=== PATIENT | male | born 1950 | race Caucasian/White ===

== ENCOUNTER 2020-05-17 14:05 | Inpatient (IN) | payer OTHER ==
--- NOTE | 2020-05-18 17:19 | R.PREADM ---
PRE-ADMISSION SCREENING FORM SCREENING DATE AND TIME 05/17/2020 14:17 (CDT) ANTICIPATED REHAB ADMISSION DATE 05/19/2020 REFERRING FACILITY [facility] REFERRAL DATE AND TIME 05/17/2020 14:17 (CDT) ACUTE ADMIT DATE 05/08/2020 Previous Rehabilitation(s): No. REFERRING PHYSICIAN Dr Prudence Almonte REHAB FACILITY [facility] CLINICAL LIAISON Jacquelyn Vazquez PHYSICIAN REVIEWER Dr. Alexi Loza M.D. MR# [id number] NAME Mason Pride ADDRESS [address] [facility] PHONE ( [place]IP [address] DATE OF 1950 AGE 70 SSN# [id number] GENDER male MARITAL STATUS RACE white PREF. LANGUAGE (IF NON-VIETNAMESE) Turkmen ADMIT FROM 02 - [facility] PRE-HOSPITAL LIVING SETTING 01 - Home (private home/apt. board/care, assisted living, usp, transitional living) HOME TYPE AND DETAILS Type of home: single family house # of levels in the residence: 1 # of steps to enter the residence: no steps but 2 rails to enter residence # of steps within the residence: 0 PRE-HOSPITAL LIVING WITH Alone FAMILY SUPPORT Yes PRIMARY FAMILY CONTACT NAME Dulce Maria Pride PRIMARY FAMILY CONTACT PHONE PRIMARY FAMILY CONTACT RELATIONSHIP daughter IS PRIMARY FAMILY CONTACT AUTH. REP.? no 1ST EMERGENCY CONTACT Dulce Maria Pride 1ST CONTACT PHONE 1ST CONTACT RELATIONSHIP daughter IS 1ST CONTACT AUTH. REP.? no PHONE 2ND CONTACT ON ADM.? no PATIENT EMPLOYMENT STATUS Retired (for age) PATIENT EMPLOYER No Employer PAYOR INFORMATION: 1ST PAYOR NAME MEDICARE 1ST PAYOR PHONE 1ST PAYOR INJURY/ILLNESS DUE TO ACCIDENT? No ANOTHER REPUBLICAN RESPONSIBLE? Unknown PRIMARY REHAB/ACUTE DIAGNOSIS: NSTEMI ONSET DATE 05/08/2020 REHAB IMPAIRMENT CATEGORY (LENY): 14 Cardiac does NOT meet 60% rule PRIMARY DIAGNOSIS-RELATED SURGERIES: L Catheter and PCI Pump INTERVENTIONS: - Atrial Fibrillation Anticoagulation VS Medications - Nicotine Nicotine Dependancy - Hypertension VS Medications Fluid management SUMMARY OF ACUTE HOSPITALIZATION: Pt. is a 70 yo Right-handed white male. He has past medical history significant for . On 05/08/2020 he was admitted to [facility] with diagnosis NSTEMI. His impairment category is Cardiac 09 - Cardiac Disorders (09). Pre-morbidly, Pt. was independent/mod-I in Communication and Self-Care; and he had good Transfers Con trol, Social Cognition, and Balance. Currently, he has deficits of Balance, Transfers Control, Endurance, and Sphincter Control. Pt. is now referred to [facility] for acute in-patient rehabilitation in order to maximize patient's functional independence in activities of daily living, strength, ROM, and mobi lity. Patient has realistic goal of being discharged at assistance level 7-[facility] to reside at Home with Pt s elf. PAST MEDICAL HISTORY Necrotizing fasciitis Pain Acute kidney failure AFIB Angina Nicotine dependence, unspecified, with other nicotine-induced disorders (F17.208) SOB HTN HLD MEDICATION ALLERGIES: No Known Drug Allergies (NKDA) ENVIRONMENTAL ALLERGIES: None Known - Substance Allergies None Known - Other Allergies None Known CODE STATUS: Full code WEIGHT/HEIGHT/BMI: WEIGHT 250 lbs HEIGHT 6' 2 BMI 32.1 DIET: - Diet Type Regular - Diet - Solid Texture Regular - Diet - Liquid Texture Regular - Tube Feed N/A SKIN DIAGRAM: Incision on Chest; extent - ; stage - . Treatment - Per Physician's Orders. REVIEW OF SYSTEMS: - Gen Alert and awake Lying in bed No apparent distress Oriented to: person, time, and place - Vital Signs Vital signs stable, afebrile - CVS RRR VITAL SIGNS Temperature: 96.1 F SBP/DBP: 118/67 Pulse: 68 Resp: 18 Vital signs stable, afebrile MEDICATIONS/TREATMENT: - see attached. CURRENT SPHINCTER CONTROL: Pre-hospital bladder status: continent Pre-hospital bowel status: continent Last Bowel Movement Date: CURRENT LOCOMOTION STATUS: distance walked 125 feet contact guard DETAILED CURRENT FUNCTIONAL STATUS: - Bladder accident frequency: UNK - No information - Bowel accident frequency: UNK - No information - Walking score based on distance walked: 0(N/A) - Wheelchair score based on distance traveled: 0(N/A) QI SCORES: - Self-Care A. Eating 04-Supervision or touching assistance B. Oral hygiene 04-Supervision or touching assistance C. Toileting hygiene 04-Supervision or touching assistance E. Shower/bathe self 04-Supervision or touching assistance F. Upper body dressing 04-Supervision or touching assistance G. Lower body dressing 04-Supervision or touching assistance H. Putting on/taking off footwear 88-Not attempted due to medical condition or safety concerns - Mobility A. Roll left and right 05-Setup or clean-up assistance B. Sit to lying 04-Supervision or touching assistance C. Lying to sitting on side of bed 04-Supervision or touching assistance D. Sit to stand 04-Supervision or touching assistance E. Chair/npy-js-pbfik transfer 03-Partial/moderate assistance F. Toilet transfer 03-Partial/moderate assistance G. Car transfer 88-Not attempted due to medical condition or safety concerns I. Walk 10 feet 02-Substantial/maximal assistance J. Walk 50 feet with two turns 88-Not attempted due to medical condition or safety concerns K. Walk 150 feet 88-Not attempted due to medical condition or safety concerns L. Walking 10 feet on uneven surfaces 88-Not attempted due to medical condition or safety concerns M. 1 step (curb) 88-Not attempted due to medical condition or safety concerns N. 4 steps 88-Not attempted due to medical condition or safety concerns O. 12 steps 88-Not attempted due to medical condition or safety concerns P. Picking up object 88-Not attempted due to medical condition or safety concerns R. Wheel 50 feet with two turns 88-Not attempted due to medical condition or safety concerns S. Wheel 150 feet 88-Not attempted due to medical condition or safety concerns - Bladder and Bowel Bladder continence Bowel continence - Endurance Fair - Balance Fair - Safety Awareness Fair CURRENT FUNC. DEFICITS: Self-Care, Mobility, Endurance, Balance, and Safety Awareness CURRENT / PREVIOUS ASSISTIVE DEVICES: Shower Chair THERAPY NOTES FROM ACUTE CARE: Attached. SPECIAL NEEDS: - Safety Concerns Skin breakdown precautions needed due to skin breakdown risk PATIENT NEEDS ACTIVE AND ONGOING THERAPEUTIC INTERVENTION OF MULTIPLE THERAPY DISCIPLINES, INCLUDING: - Dietary and Nutrition Adequate Nutrition. Nutritional Education. Nutritional Supplements. PATIENT NEEDS CLOSE MEDICAL SUPERVISION BY A REHABILITATION PHYSICIAN FOR: Coordination of Treatment Team Wound Care PATIENT REQUIRES 24X7 REHAB NURSING FOR MEDICAL AND FUNCTIONAL MGT. OF THE FOLLOWING DEFICITS: Disease Management Medication Management Patient/Family Education Providing Safe Environment Skin Integrity PATIENT REQUIRES INTENSIVE, COORDINATED INTERDISCIPLINARY APPROACH TO REHAB: Arranging Home Equipment/Services Discharge Planning Family Intervention/Training Supervisor Spinning/Case Management PATIENT REHAB POTENTIAL: Joshua Pride is able and expected to receive 3 hours of individualized therapy daily on at least 5 of e very 7 days Joshua Pride's prognosis for significant practical improvement within a reasonable period of time appea rs Good Expected level of measurable improvement will be of a practical value to Joshua Pride's functional capa city or adaptations to impairments Has a viable Discharge Plan Medically appropriate; condition is sufficiently stable to participate in intensive rehab program DISCHARGE PLAN: - Estimated Length of Stay (days) 10. - Consensus on plan Discharge plan has been discussed with primary caregiver. Patient/Family is in agreement with the yamila n. Primary caregiver is in agreement with the plan. - Patient/Family Goals Return home independently. - Planned Living Setting Upon Discharge Home, to live alone. Transitional Living. Primary caregiver: Pt self. RECOMMENDED CARE LEVEL: IRF RECOMMENDATION DETAILS: Recommended Admission to Comprehensive Rehabilitation Program to Increase Functional Archer SCREENER'S COMPLETENESS CONFIRMATION: - Screening Confirmation The patient data collection on this preadmission screening form is finished PHYSICIANS REVIEW AND ADMISSION DETERMINATION Admit - Based on my review of the Pre-Admission Screening results, in my medical judgment and experie nce, I concur with the findings and recommend admission to [facility], as this patient requires an IRF level of care. SIGNATURE PANEL: Field Health Officer - [electronically] signed by Claudia España on 05/18/2020 at 11:26 (CDT) Field Health Officer - [electronically] signed by Anna Gupta RN on 05/18/2020 at 11:35 (CDT) Physician Reviewer - [electronically] signed by Dr. Alexi Loza M.D. on 05/18/2020 at 17:19 (CDT )
--- OUTSIDE RECORDS SUMMARY | 2020-05-19 18:12 | XMS REPORT | Clinical Summary ---
:1950 Author Organization [facility] Address [address] [place] [address] Care Team Providers Name Role Phone Vu New MD Primary Care Provider Allergies Active Allergy Reactions Severity Noted Date Comments Lisinopril 12/13/2017 Medications Medication Sig Dispensed Refills Start End Date Status Date atorvastatin (LIPITOR) Take 80 mg 0 Active 80 MG tablet by mouth daily. ALPRAZolam (XANAX) 0.5 Take 0.5 mg 0 Active MG tablet by mouth nightly as needed for anxiety. BUPROPION HCL Take 450 mg 0 Acti ve (WELLBUTRIN ORAL) by mouth daily. metoprolol tartrate Take 1 30 tablet Active (LOPRESSOR) 25 mg tablet (25 9 tablet mg total) by mouth 2 (two) times a day. omeprazole (PriLOSEC) Take 40 mg 0 Active 40 MG capsule by mouth daily. sucralfate (CARAFATE) 1 Take 1 g by 0 Active gram tablet mouth 4 (four) times a day. traMADol (ULTRAM) 50 mg Take 50 mg 0 Active tabletIndications: by mouth acute pain every 6 (six) hours as needed for moderate pain .Acute Pain. hydroCHLOROthiazide Take 25 mg 0 Active (HYDRODIURIL) 25 MG by mouth tablet daily. furosemide (LASIX) 40 Take 1 30 tablet 06/26/20 Discontinued mg tablet tablet (40 9 19 (Patient mg total) by Reporte d) mouth daily. potassium chloride Take 1 30 tablet 04/03/20 E xpired (KLOR-CON) 10 MEQ CR tablet (10 9 20 tablet mEq total) by mouth daily. hydrALAZINE Take 1 60 tablet 6 04/03/20 (APRESOLINE) 100 MG tablet (100 9 20 tablet mg total) by mouth 2 (two) times a day. Active Problems Problem Noted Date Localized edema 06/16/2017 Last Assessment & Plan: Will add lasix and potassium and check l abs in one week Preop cardiovascular exam 12/10/2016 Last Assessment & Plan: OK to proceed with surgery at low periop CV risk Shortness of breath 09/11/2016 Last Assessment & Plan: No evidence of ischemia Carotid stenosis, right 05/18/2016 Overview: S/P Right CEA Last Assessment & Plan: s/p right CEA; mild plaquing is noted by Doppler Atherosclerosis of [place] coronary artery without cristina na pectoris 05/18/2016 Overview: S/P PCI Pure hypercholesterolemia 05/18/2016 Last Assessment & Plan: On statin Essential (primary) hypertension 05/18/2016 Last Assessment & Plan: BPs elevated; due to an absence of thera py; he will resume therapy Encounters Date Type Specialty Care Team Description 08/15/2019 Office Visit Cardiology Charlie Vazquez, Essential (primary) hypertension (Primary Dx); Preop cardiovas cular exam; Pure hyperchole sterolemia; Carotid stenosi s, right 08/03/2019 Telephone Cardiology Hollis Reynolds MA Results 06/26/2019 Office Visit Cardiology Charlie Vazquez, Carotid st enosis, right (Primary Dx); Preop cardiovas cular exam; Essential (prim kip) hypertension; Pure hyperchole sterolemia after 05/19/2019 Surgical History Surgery Date Site/Laterality Comments CAROTID ENDARTERECTOMY Right CV PERCUTANEOUS CORONARY INTERVENTION Medical History Medical History Date Comments Hypertension CKD (chronic kidney disease) Hyperlipidemia Depression ED (erectile dysfunction) Skin cancer Osteoarthritis Lupus anticoagulant positive Social History Tobacco Use Types Packs/Day Years Used Date Current Every Day Smoker Smokeless Tobacco: Current User Comments: trying to quit Alcohol Use Drinks/Week oz/Week Comments Yes Socially Sex Assigned at Date Recorded Not on file Last Filed Vital Signs Vital Sign Reading Time Taken Comments Blood Pressure 175/82 08/15/2019 11:40 AM [employer] [employer] Pulse 94 08/15/2019 11:40 AM [employer] Temperature - - Respiratory Rate - - Oxygen Saturation - - Inhaled Oxygen Concentration - - Weight 118 kg (260 lb) 08/15/2019 11:40 AM [employer] Height 188 cm (6' 2") 08/15/2019 11:40 AM [employer] Body Mass Index 33.38 08/15/2019 11:40 AM [employer] Plan of Treatment Health Maintenance Due Date Last Done Comments COLONOSCOPY SCREENING 02/26/2000 SHINGLES VACCINES (#1) 02/26/2000 65+ PNEUMOCOCCAL VACCINE (1 of 1 - PPSV23) 2015 INFLUENZA VACCINE 02/24/2020 Procedures Procedure Name Priority Date/Time Associated Diagnosis Comme nts NM MYOCARDIAL Routine 08/15/2019 11:33 Preop cardiovascular Re sults for this PERFUSION REST AM [employer] exam procedure are in STRESS 1 DAY the results section. CV STRESS TEST Routine 08/15/2019 11:33 Preop cardiovascular NUCLEAR CARDIO AM [employer] exam US CAROTID DUPLEX Routine 08/02/2019 3:25 Carotid stenosis, R esults for this BILATERAL PM [employer] right procedure are i n the results section. TTE COMPLETE, WO Routine 08/02/2019 2:56 Nonrheumatic mitral Results for this CONTRAST, W DOPPLER PM [employer] valve regurgitation p rocedure are in ([id number]) the results section. after 05/19/2019 Results Nm myocardial perfusion (08/15/2019 11:33 AM [employer]POR[employer]) Pathologist Sig nature Target HR 151.00 bpm [facility] Exercise duration (sec) 10 sec [facility] Resting HR 91 BPM [facility] Resting BP 175/84 mmHg [facility] Percent HR 66.89 % [facility] Exercise duration (min) 0 min [facility] Post Peak HR 101 bpm [facility] Post Peak BP 175/84 mmHg [facility] Max Predicted Heart Rate 151 BPM [facility] Specimen Narrative Performed At This result has an attachment that is no t available. [facility] Study Quality: good. There are no perfusion defects. The study is normal. This study result indicates a low risk of cardiac d eath, or nonfatal infarction, over the ensuing year. SPECT images demonstrate a normal perfusion study. Normal left ventricular systolic function. No evidence of ischemia. Normal LV systolic function. Performing Organization Address City/State/ZIP Code Phon e Number [facility] [address] [place] [address] Us carotid duplex (08/02/2019 3:25 PM [employer]POR[employer]) Pathologist Sig nature R ECA Prox 118.00 cm/s [facility] L CCA Prox 13.70 cm/s [facility] L CCA Prox 71.30 cm/s [facility] L ECA Prox 14.80 cm/s [facility] L ECA Prox 78.40 cm/s [facility] R ECA Prox -16.60 cm/s [facility] L ICA Prox 27.90 cm/s [facility] L ICA Prox 85.50 cm/s [facility] R ICA Prox -23.10 cm/s [facility] R ICA Prox -58.90 cm/s [facility] L ICA/CCA Ratio 1.21 [facility] R ICA/CCA Ratio 1.12 [facility] L CCA Max 71.30 cm/s [facility] R CCA Max 90.30 cm/s [facility] L ICA Max 86.10 cm/s [facility] R ICA Max 101.00 cm/s [facility] R CCA Prox 17.80 cm/s [facility] R CCA Prox 90.30 cm/s [facility] R ICA Dist -37.80 cm/s [facility] L ICA Dist -31.50 cm/s [facility] L ICA DIST -86.10 cm/s [facility] R CCA Dist 13.10 cm/s [facility] R CCA Dist 64.10 cm/s [facility] L CCA Dist 16.00 cm/s [facility] L CCA Dist 61.80 cm/s [facility] R ICA Dist -101.00 cm/s [facility] Lt CCA Prox RI 80.79 [facility] Rt ECA Prox PSV -118.00 cm/s [facility] Lt CCA Prox SD 520.44 [facility] Lt ECA Prox RI 81.12 [facility] Lt ECA Prox SD 529.73 [facility] Rt ECA Prox RI 85.93 [facility] Rt ECA Prox SD 710.84 [facility] Lt ICA Prox RI 67.37 cm/s [facility] Lt ICA Prox SD 306.45 [facility] Rt ICA Prox RI 60.78 cm/s [facility] Rt ICA Prox SD 254.98 cm/s [facility] Rt CCA Prox RI 80.29 [facility] Rt CCA Prox SD 507.30 [facility] Lt CCA Dist SD Ratio 386.25 [facility] Lt ICA Dist SD Ratio 273.33 [facility] Rt CCA Dist SD Ratio 489.31 [facility] RT ICA Dist SD Ratio 267.20 cm/s [facility] RT CCA DIST RI 79.56 cm/s [facility] RT CCA PROX SD RATIO 507.30 cm/s [facility] Lt IC/CC 120.76 cm/s [facility] Lt CCA Distal RI 74.11 [facility] Lt ICA Distal RI 63.41 [facility] Rt ICA Distal EDV -37.80 cm/s [facility] Rt ICA Distal RI 62.57 [facility] Specimen Narrative Performed At This result has an attachment that is no t available. Intimal thickening involving both carotid arteries without significant [facility] stenosis. Patency noted at the site of previous right carotid endarterectomy. Mild plaque involving the left carotid bulb without significant stenosis, Bilateral anterograde vertebral flow. Performing Organization Address City/State/ZIP Code Phon e Number [facility] [address] [place] [address] Echocardiogram complete w contrast and 3D if needed (08/02/2019 2:56 PM [employer]) Pathologist Sig nature Velocity Ratio (V1/V2) 0.90 m/s [facility] EF 44.11 % [facility] AoV Mean PG 3.00 mmHg [facility] AV LVOT peak gradient 5.02 mmHg [facility] MV valve area p 1/2 method 2.62 cm2 [facility] E/A ratio 0.90 [facility] E wave decelartion time 289.00 msec [facility] LVOT Diam,S 2.30 cm [facility] LVOT area 4.15 cm2 [facility] LVOT Vmax 1.12 m/s [facility] LVOT VTI 0.24 m [facility] AoV Peak PG 6.25 mmHg [facility] MV Peak E Laurent 0.85 m/s [facility] MV stenosis pressure 1/2 time 83.81 ms [facility] MV Peak A Laurent 0.94 m/s [facility] BSA 2.45 m2 [facility] AoV Area, Vmax 3.72 cm2 [facility] AoV Area, VTI 3.43 cm2 [facility] AoV Vmax 1.25 m/s [facility] BSA King 2.54 m2 [facility] BSA Haycock 2.55 m2 [facility] IVS/LVPW,2D 0.98 [facility] LV,d 5.48 cm [facility] LV,s 4.27 cm [facility] RVSP (TR) 19.92 mmHg [facility] TR Vpeak 1.73 mm/s [facility] BMI 34.15 kg/m2 [facility] MV E A ratio 0.90 [facility] RA pressure 10.00 mmHg [facility] TR pk grad 9.92 mmHg [facility] AoV area i VTI BSA Lyman 1.40 cm2/m2 [facility] MR peak grad 20.98 mmHg [facility] RVSP 19.92 mmHg [facility] Ao Root,d,2D 3.00 cm [facility] LV SYS VOL 81.71 ml [facility] LV DESAI VOL 146.19 ml [facility] LV SI Teich 2D 26.29 ml/m2 [facility] LV SV Teich 2D 64.48 ml [facility] LV Vol s Teich PSAX 81.71 ml [facility] LVOT SI 40.14 ml/m2 [facility] AoV Cusp sep 2.30 [facility] Aortic Root 3.30 cm [facility] AoV Vmn 0.87 [facility] LA Ao Ratio Mmode 1.36 [facility] LV FS Cube 2D 22.08 [facility] LV FS Teich 2D 22.08 [facility] AoV VTI 0.29 m [facility] LV EF,2D 52.69 % [facility] MR Vmax 2.29 m/s [facility] MV AE ratio 1.11 [facility] LVOT Vmn 0.68 [facility] Pt Size 187.96 [facility] Pt Wt 120.66 [facility] Aov area Vmn 3.27 cm2 [facility] LVOT mean grad 2.00 mmHg [facility] Ao d LA s ratio 0.70 [facility] AoV area I VMN bsa 1.33 cm2/m2 [facility] LV press s 161.25 mmHg [facility] LV SI Cube 2D 35.35 ml/m2 [facility] LV SV Cube 2D 86.71 ml [facility] LV vol d cube 2D 164.57 ml [facility] LV vol s cube 2D 77.85 ml [facility] Specimen Narrative Performed At This result has an attachment that is no t available. [facility] Left ventricular systolic function is normal. Left Ventricular ejection fraction is 55 - 60%. There is mild sclerosis of the aortic valve leaflet s. Technically limited study with sub-optimal imaging in the parasternal windows. Apical windows were used primarily for interp retation. Normal left ventricular size with preserved systolic function and no regionality. Age related changes involving the aortic valve without stenosis or insufficiency. Trace mitral and tricuspid regurgitatio n. Normal right sided chambers. Performing Organization Address City/State/ZIP Code Phon e Number [facility] [address] [place] [address] after 05/19/2019 Insurance Payer Benefit Plan / Subscriber ID Effective Phone Address T ype Group Dates MEDICARE MEDICARE PART [id number] 2015-Pre[place], [place] Medicare A AND B nt [employer] OF [employer] OF [id number] 2015-Pre Eddie ROWELL sent [phone] (Work) Advance Directives For more information, please contact: [phone] Type Date Recorded Patient Silviculture Professor Explanati on Advance Directives, Living Will and Medical Power of Cellar Packer
--- OUTSIDE RECORDS SUMMARY | 2020-05-19 18:14 | XMS REPORT | Clinical Summary ---
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 05/08/2020 4:27 PM CDT Resu lts for this procedure are i n the results section . HEMOGLOBIN A1C Routine 05/08/2020 4:19 PM CDT Re sults for this procedure are i n the results section . LIPID PANEL Routine 05/08/2020 4:19 PM CDT Resu lts for this procedure are i n the results section . HEPATIC FUNCTION PANEL Routine 05/08/2020 4:19 PM CDT Results for this procedure are i n the results section . CBC (HEMOGRAM ONLY) Routine 05/08/2020 4:19 PM CDT Results for this procedure are i n the results section . BASIC METABOLIC PANEL (7) Routine 05/08/2020 4:19 PM CDT Results for this procedure are i n the results section . TROPONIN I Routine 05/08/2020 4:19 PM CDT Resu lts for this procedure are i n the results section . TROPONIN I Routine 05/08/2020 4:19 PM CDT Resu lts for this procedure are i n the results section . XR CHEST 1 VIEW MILA 05/08/2020 3:59 PM CDT R esults for this PORTABLE/BEDSIDE procedure a re in the results section . after 05/19/2019 Results Basic Metabolic Panel (05/19/2020 4:29 AM CDT)Only the most recent of9 results within the time period is included. Sodium 137 136 - 145 meq/L [facility] Potassium 3.6 3.5 - 5.1 meq/L [facility] Chloride 99 98 - 107 meq/L [facility] CO2 26 22 - 29 meq/L [facility] BUN 34 (H) 7 - 21 mg/dL [facility] Creatinine 1.23 0.57 - 1.25 [facility] mg/dL [facility] Glucose 118 (H) 70 - 105 mg/dL [facility] Calcium 9.0 8.4 - 10.2 [facility] mg/dL [facility] EGFR 58Comment: ESTIMATED mL/min/1.73 sq [facility] GFR IS NOT m [facility] ACCURATE VISALIA CREATININE CLEARANCE IN PREDICTING GLOMERULAR FILTRATION RATE. ESTIMATED GFR IS NOT APPLICABLE FOR DIALYSIS PATIENTS. Specimen Blood Narrative Performed At Company Laborer ID - PIAYA L [facility] Performing Organization Address City/State/Zipcode Phone Number [facility] [address] [place] [address] CENTER CBC with platelet count + automated diff (05/18/2020 8:53 AM CDT)Only the most recent of8 resultswithin the time period is included. Pathologist Sig nature WBC 9.2 3.5 - 10.5 [facility] K/L [facility] RBC 3.69 (L) 4.63 - 6.08 [facility] M/L [facility] Hemoglobin 12.1 (L) 13.7 - 17.5 [facility] GM/DL [facility] Hematocrit 35.9 (L) 40.1 - 51.0 % [facility] MCV 97.3 (H) 79.0 - 92.2 fL [facility] MCH 32.8 (H) 25.7 - 32.2 pg [facility] MCHC 33.7 32.3 - 36.5 [facility] GM/DL [facility] RDW 15.0 (H) 11.6 - 14.4 % [facility] Platelets 458 (H) 150 - 450 K/CU [facility] MPV 9.8 9.4 - 12.4 fL [facility] nRBC 0 0 - 0 /100 WBC [facility] % Neutros 76 % [facility] % Lymphs 6 % [facility] % Monos 7 % [facility] % Eos 9 % [facility] % Baso 1 % [facility] # Neutros 7.00 (H) 1.78 - 5.38 [facility] # Lymphs 0.52 (L) 1.32 - 3.57 [facility] # Monos 0.67 0.30 - 0.82 [facility] # Eos 0.80 (H) 0.04 - 0.54 [facility] # Baso 0.11 (H) 0.01 - 0.08 [facility] Immature 1 0 - 1 % [facility] Specimen Blood Performing Organization Address City/State/Zipcode Phone Number [facility] [address] [place] [address] CENTER SARS-CoV2/RT-PCR (Asymptomatic ONLY) (05/17/2020 6:15 PM CDT)Only the most recent of2 resultswithin the time period is included. SARS-COV2/RT-PCR Negative Not Detected, [facility] Negative, See [facility] external report CENTER for linked test SARS-COV-2 [facility] PERFORMING LAB [facility] Specimen Other - Nasopharyngeal wall structure (b lucia structure) Narrative Performed At Negative result for this test determines that [facility] SARS-CoV-2 RNA was not present in the specimen above the Limit of Detection (LOD). However, Negative results do not preclude SARS-CoV-2 infection and should not be used as the sole basis for treatment or patient management decisions. Negative results must be combined with clinical observations, patient history, and epidemiological information. A false negative result may occur if a specimen is improperly collected, transported or handled. A false negative result should be considered if patient's recent exposures or clinical presentation indicate that COVID-19 (SARS-CoV-2) is likely and diagnostic tests for other causes of illness are negative. Re-testing should be considered in cases of suspected false negatives. The limit of detection for this assay is 800 copies/mL. This SARS CoV-2 test is a real-time RT-PCR test intended for the qualitative detection of nucleic acid from SARS-CoV-2 in a nasopharyngeal swab specimen collected from individuals suspected of COVID-19 by their healthcare provider. This test has not been Food and Drug Administration (FDA) cleared or approved. This is a modified version of an approved Emergency Use Authorization (EUA) and is in the process of review by the FDA. Once authorized by the FDA, the issued EUA will be effective until the declaration that circumstances exist justifying the authorization of the emergency use of in vitro diagnostic tests for detection and/or diagnosis of COVID-19 is terminated under Section 564(b)(2) of the Act or the EUA is revoked under Section 564(g) of the Act. Fact Sheet for Healthcare Providers: https://www.[employer]/sites/default/files/pro duct/documents/Fact_Sheet_HC_Providers_Lyra_SA RS-CoV-2.pdf Fact Sheet for Healthcare Patients: https://www.[employer]/sites/default/files/pro duct/documents/Fact_Sheet_Patients_Lyra_SARS-C oV-2.pdf Performing Laboratory: [address] [place] [address] Performing Organization Address City/State/Zipcode Phone Number [facility] MEDICAL [address] [place] [address] [place] ECG 12 lead (05/17/2020 5:38 AM CDT)Only the most recent of12 resultswithin the time period is included. Specimen Narrative Performed At This result has an attachment that is no t available. Ventricular Rate 66 BPM GE MUSE Atrial Rate 66 BPM P-R Interval 160 ms QRS Duration 94 ms Q-T Interval 504 ms QTC Calculation(Bazett) 528 ms P Burgin -14 degrees R Burgin -43 degrees T Burgin 141 degrees Sinus rhythm with Premature supraventricular complexes Left axis deviation T wave abnormality, consider anterolateral ischemia Prolonged QT Abnormal ECG No previous ECGs available Confirmed by MD HARVEY JOSEPH P ([id number]) on 05/17/20 20 6:59:05 AM Procedure Note Interface, External Ris In - 05/17/2020 6:59 AM CDT Ventricular Rate 66 BPM Atrial Rate 66 BPM P-R Interval 160 ms QRS Duration 94 ms Q-T Interval 504 ms QTC Calculation(Bazett) 528 ms P Burgin -14 degrees R Burgin -43 degrees T Burgin 141 degrees Sinus rhythm with Premature supraventric ular complexes Left axis deviation T wave abnormality, consider anterolater al ischemia Prolonged QT Abnormal ECG No previous ECGs available Confirmed by MD HARVEY JOSEPH P ([id number]) on 05/17/2020 6:59:05 AM Performing Organization Address City/[facility] Phone Number MUSE Phosphorus (05/16/2020 6:06 AM CDT)Only the most recent of7 resultswithin the time period is included. Pathologist Sig nature Phosphorus 3.2 2.3 - 4.7 mg/dL [facility] Specimen Blood Narrative Performed At Company Laborer ID - [facility] Performing Organization Address [facility] Phone Number [address] [address] CENTER Magnesium (05/16/2020 6:06 AM CDT)Only the most recent of10 resultswithin the time period is included. Pathologist Sig nature Magnesium 2.2 1.6 - 2.6 mg/dL [facility] Specimen Blood Narrative Performed At Company Laborer ID - AAHAMID [facility] Performing Organization Address [facility] Phone Number [address] [address] CENTER aPTT (05/14/2020 4:52 AM CDT)Only the most recent of11 resultswithin the time period is included. Pathologist Sig nature PTT 42.0 (H) 22.5 - 36.0 seconds [facility] Specimen Blood Performing Organization Address City/State/Zipcode Phone Number [facility] [address] [place] [address] CENTER XR chest 1 view portable / bedside (05/13/2020 4:05 AM CDT)Only the most recent of5 resultswithin the time period is included. Specimen Narrative Performed At FINAL REPORT GE RIS CLINICAL INDICATION: Respiratory insuffi ciency Comparison: 05/12/2020 The cardiomediastinal contours are stabl e. The lung volumes remain low. There is wo rsening central vascular prominence and perihilar interstitial an d patchy airspace opacity, suggesting worsening pulmonary edema. Pn eumonitis should be excluded clinically. There is no pneumothorax or large pleura l effusion. Signed: Chris Pratt MD Report Verified Date/Time: 05/13/2020 04:33:54 Procedure Note Interface, External Ris In - 05/13/2020 4:36 AM CDT FINAL REPORT CLINICAL INDICATION: Respiratory insuffi ciency Comparison: 05/12/2020 The cardiomediastinal contours are stabl e. The lung volumes remain low. There is wo rsening central vascular prominence and perihilar interstitial an d patchy airspace opacity, suggesting worsening pulmonary edema. Pn eumonitis should be excluded clinically. There is no pneumothorax or large pleura l effusion. Signed: Chris Pratt MD Report Verified Date/Time: 05/13/2020 0 4:33:54 Performing Organization Address City/State/Zipcode Phone Number [facility] Procalcitonin (05/13/2020 3:12 AM CDT) Pathologist Sig nature Procalcitonin 0.09 (H) <0.05 ng/mL [facility] Specimen Blood Narrative Performed At SEPSIS RISK (ng/mL) [facility] Low: 0.05-0.50 Intermediate: 0.51-2.00 High: >=2.01 Performing Organization Address [facility] Phone Number [address] [address] CENTER Calcium, Ionized (05/13/2020 3:12 AM CDT) Pathologist Sig nature Calcium, Ion 1.11 (L) 1.12 - 1.27 mmol/L [facility] pH, Blood 7.39 [facility] Specimen Blood Performing Organization Address [facility] Phone Number [address] [address] [place] Lactic acid, venous (05/13/2020 3:12 AM CDT)Only the most recent of3 results within the time period is included. Lactate, Venous 1.53Comment: 0.50 - 2.20 [facility] slightly mmol/L [facility] Specimen Blood Narrative Performed At Company Laborer ID - DB [facility] Performing Organization Address [facility] Phone Number [address] [address] [place] Comprehensive metabolic panel (05/13/2020 3:12 AM CDT)Only the most recent of4 resultswithin the time period is included. Protein, Total 7.5Comment: 6.0 - 8.3 [facility] Specimen slightly gm/dL [facility] Albumin 3.9Comment: 3.5 - 5.0 [facility] Specimen slightly g/dL [facility] Alkaline 130 40 - 150 U/L [facility] Phosphatase [facility] Total Bilirubin 1.0Comment: 0.2 - 1.2 [facility] slightly mg/dL [facility] Sodium 134 (L) 136 - 145 [facility] meq/L [facility] Potassium 4.0Comment: 3.5 - 5.1 [facility] Specimen slightly meq/L [facility] Chloride 95 (L) 98 - 107 [facility] meq/L [facility] CO2 25 22 - 29 meq/L [facility] BUN 26 (H) 7 - 21 mg/dL [facility] Creatinine 1.23Comment: 0.57 - 1.25 [facility] Specimen slightly mg/dL [facility] Glucose 126 (H) 70 - 105 [facility] mg/dL [facility] Calcium 9.4 8.4 - 10.2 [facility] mg/dL [facility] AST 26Comment: 5 - 34 U/L [facility] ALT 31Comment: 6 - 55 U/L [facility] EGFR 58Comment: mL/min/1.73 [facility] ESTIMATED GFR IS [facility] NOT ACCURATE MEDICAL CENTER CREATININE CLEARANCE IN PREDICTING GLOMERULAR FILTRATION RATE. ESTIMATED GFR IS NOT APPLICABLE FOR DIALYSIS PATIENTS. Specimen Blood Narrative Performed At Company Laborer ID - DB [facility] Performing Organization Address City/[facility]/Zipcode Phone Number [address] [address] CENTER Platelet count (05/12/2020 12:43 PM CDT) Pathologist Sig nature Platelets 273 150 - 450 K/CU [facility] Specimen Blood Narrative Performed At Company Laborer ID - [id number] [facility] Performing Organization Address City/[facility]/Zipcode Phone Number [place] [phone] [place] [address] CENTER Troponin I (05/11/2020 5:25 AM CDT)Only the most recent of12 resultswithin the time period is included. Pathologist Sig nature Troponin I 16.19 (HH) 0.00 - 0.03 ng/mL [facility] Specimen Blood Narrative Performed At Troponin I (TnI) levels must be interpreted [facility] in the context of the presenting symptoms and the clinical findings. Elevated TnI levels indicate myocardial damage, but are not specific for ischemic heart disease. Elevated TnI levels are seen in patients with other cardiac conditions (including myocarditis and congestive heart failure), and slight TnI elevations occur in patients with other conditions, including sepsis, renal failure, acidosis, acute neurological disease, and persistent tachyarrhythmia. Company Laborer ID - RILEY Performing Organization Address City/[facility] Phone Number [address] [address] CENTER Potassium (05/11/2020 12:00 AM CDT)Only the most recent of2 resultswithin the time period is included. Pathologist Sig nature Potassium 3.8 3.5 - 5.1 meq/L [facility] Specimen Blood Narrative Performed At Company Laborer ID - NELLY [facility] Performing Organization Address [facility] Phone Number [address] [address] CENTER Vitamin B12 and Folate (05/10/2020 4:19 AM CDT) Pathologist Sig nature Vitamin B12 373 213 - 816 pg/mL [facility] Folate 4.10 (L) >=7.00 ng/mL [facility] Specimen Blood Narrative Performed At Company Laborer ID - RILEY [facility] Performing Organization Address [facility] Phone Number [address] [address] CENTER Iron, TIBC, % sat. (without ferritin) (05/10/2020 4:19 AM CDT) Pathologist Sig nature Iron 34.0 (L) 40.0 - 160.[address] [facility] ug/dL [facility] TIBC 331 250 - 450 ug/dL [facility] Iron % Saturation 10 (L) 20 - 55 % [facility] Specimen Blood Narrative Performed At Company Laborer ID - PIJESENIA L [facility] Performing Organization Address [facility] Phone Number [address] [address] CENTER B-type Natriuretic Factor (BNP) (05/10/2020 4:19 AM CDT) Pathologist Sig nature BNP 637 (H) 0 - 100 pg/mL [facility] Specimen Blood Narrative Performed At Company Laborer ID - PIJESENIA L [facility] Performing Organization Address [facility] Phone Number [address] [address] CENTER Ferritin (05/10/2020 4:19 AM CDT) Pathologist Sig nature Ferritin 286.82 (H) 5.00 - 275.00 ng/mL [facility] Specimen Blood Narrative Performed At Company Laborer ID - EDASI [facility] Performing Organization Address [facility] Phone Number [address] [address] [place] POC ACTIVATED CLOTTING TIME (05/09/2020 9:30 PM CDT)Only the most recent of5 resultswithin the time period is included. Activated Clotting [address] [facility] Comment: [facility] MEDICAL : 74-137 seconds, Baseline CENTER : TESTED AT [address], [address] : Company Laborer/Engraver Pantograph ID = [id number] for GUERO DYER Specimen Blood Performing Organization Address [facility] Phone Number [address] [address] CENTER 2D Echo W/Doppler(CW/PW/Color) (05/09/2020 8:36 PM CDT) Pathologist Sig nature Ejection Fraction [facility] CPACS Specimen Narrative Performed At Transthoracic Echocardiography Report (T TE) [facility] ECHO HEART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 Clinical History HGB 12.7 HCT 38.9 % NSTEMI, CHF, HTN, HLD, COPD/ASTHMA, CP, S/P PCI (10 YR AGO) IABP Contrast Medium: Definity. Amount - 3 ml Height: 74 inches Weight: 117.48 kg (259 lbs) BSA: 2.43 m^2 BMI: 33.25 kg/m^2 HR: 93 bpm BP: 140/92 mmHg Summary 1. Normal LV size. LV function is moderately reduced. LVEF is 35-39%. Wall motion abnormalities noted in the territory of the LAD 2. Diastology: Indeterminate 3. Normal RV size and function 4. No significant valvular heart diseas e 5. Unable to estimate PASP 6. No pericardial effusion Previous Study No prior studies available for comparis on. Signature Findings Rhythm/BP Sinus tachycardia during the exam. Left Ventricle LV endocardium is adequately visualized with IV ultrasound enhancing agent. The left ventricle is chamber size (by vol index) is normal (male - LVED vol - 34-74ml/m2). LV septal thickness is normal (0.6-1.1cm). LV posterior wall thickness is normal (0.6-1.1cm) . The following segment(s) appear akinetic: mid apical infero-septum, apical anterolateral, mid and apical anterior, apical inferior, mid and apica l ante roseptum LVEF by Goins's method of disk assessment is moderately reduced (35-39%) . Diastology: Indeterminate Left Atrium LA size is normal (16-34 ml/m2) . Right Ventricle The right ventricular chamber size and systolic function are within normal limits. Right Atrium RA size is normal. Atrial Septum Normal interatrial septum by available views. Aortic Valve Normal AoV structure. AoV area at rest by continuity equation is in the range of 4.9 cm2. Mitral Valve Mild mitral annular calcification. Normal MV function. Tricuspid Valve TV structure is normal. Unable to estimate peak systolic PA pressure; inadequate TR velocity signal. Pulmonic Valve Normal PV structure and function by limited views and Doppler. Pericardium Prominent epicardial fat pad noted. IVC/SVC/PA/PV/Pleural The estimated RA pressure by IVC dynamics 5-10 mmHg . [facility]/Structures Left Atrium LA Area: 19.47 cm^2 Left Ventricle LVIDd: 5.25 cm LVEDV:135.04 ml LVIDs: 3.94 cm LV Septum Diastolic: 0.81 cm LV PW Diastolic: 0.76 cm LV FS: 25 % LVEDV Goins's:147.45 ml LVESV Goins's:95.12 ml LVEDVI: 61 ml/m^2 LVEF Goins's: 35.5 % LVESVI: 39 ml/m^2 LVOT Diameter: 2.93 cm Doppler/Quantitative Measurements Mitral Valve MV Peak E-Wave: 0.9 m/s MV Peak A-Wave: 0.61 m/s E/A Ratio: 1.46 Peak Gradient: 3.22 mmHg Deceleration Time: 150.5 msec MV Laurent. Peak: Aortic Valve Peak Velocity: 1.29 m/s Mean Velocity: 0.88 m/s Peak Gradient: 6.7 mmHg Mean Gradient: 3.57 mmHg AV Area (continuity): 4.89 cm^2 AV VTI: 19.65 cm AV DVI: 0.73 LVOT Peak Velocity: 0.92 m/s Peak Gradient: 3.37 mmHg Mean Velocity: 0.61 m/s Mean Gradient: 1.74 mmHg LVOT Diameter: 2.93 cm LVOT VTI: 14.26 cm LVOT Area: 6.74 cm^2 LVOT SV:96.1 ml LVOT CO: 8.94 l/min LVOT CI: 3.68 l/min/m^2 Procedure Note Interface, External Ris In - 05/10/2020 9:08 AM CDT Transthoracic Echocardiography Report (TTE) Demographics Patient Name MASON PRIDE Date of Study 05/09/2020 Gend er Male Visit Number [id number] Race Unknown Room Number 6108 Number Date of 1950 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 Clinical History HGB 12.7 HCT 38.9 % NSTEMI, CHF, HTN, HLD, COPD/ASTHMA, CP, S/P PCI (10 YR AGO) IABP Contrast Medium: Definity. Amount - 3 ml Height: 74 inches Weight: 117.48 kg (259 lbs) BSA: 2.43 m^2 BMI: 33.25 kg/m^2 HR: 93 bpm BP: 140/92 mmHg Summary 1. Normal LV size. LV function is moder ately reduced. LVEF is 35-39%. Wall motion abnormalities noted in the portia tory of the LAD 2. Diastology: Indeterminate 3. Normal RV size and function 4. No significant valvular heart diseas e 5. Unable to estimate PASP 6. No pericardial effusion Previous Study No prior studies available for comparis on. Signature Findings Rhythm/BP Sinus tachycardi a during the exam. Left Ventricle LV endocardium i s adequately visualized with IV ultrasound enhan cing agent. The left ventric le is chamber size (by vol index) is normal (male - LVED vol - 34-74ml/m2). LV septal thickn ess is normal (0.6-1.1cm). LV posterior wall t hickness is normal (0.6-1.1cm) . The following se gment(s) appear akinetic: mid apical infero-se ptum, apical anterolateral, mid and apical anterior, apical inferior, mid and apical anteroseptum LVEF by Goins' s method of disk assessment is moderately reduc ed (35-39%) . Diastology: Inde terminate Left Atrium LA size is erika l (16-34 ml/m2) . Right Ventricle The right ventri cular chamber size and systolic function are wit hin normal limits. Right Atrium RA size is erika l. Atrial Septum Normal interatri al septum by available views. Aortic Valve Normal AoV struc ture. AoV area at rest by continuity equation is in the range of 4.9 cm2 . Mitral Valve Mild mitral juany lar calcification. Normal MV functi on. Tricuspid Valve TV structure is normal. Unable to estima te peak systolic PA pressure; inadequate TR ve locity signal. Pulmonic Valve Normal PV struct ure and function by limited views and Doppler. Pericardium Prominent epicar dial fat pad noted. IVC/SVC/PA/PV/Pleural The estimated RA pressure by IVC dynamics 5-10 mmHg . [facility] Circ Support Chambers/Structures Left Atrium LA Area: 19.47 cm^2 Left Ventricle LVIDd: 5.25 cm LVEDV:135.04 ml LVIDs: 3.94 cm LV Septum Diastolic: 0.81 cm LV PW Diastolic: 0.76 cm LV FS: 25 % LVEDV Goins's:147.45 ml LVESV Goins's:95.12 ml LVEDVI: 61 ml/m^2 LVEF Goins's: 35.5 % LVESVI: 39 ml/m^2 LVOT Diameter: 2.93 cm Doppler/Quantitative Measurements Mitral Valve MV Peak E-Wave: 0.9 m/s MV Pe ak A-Wave: 0.61 m/s E/A R atio: 1.46 Peak Gradient: 3.22 mmHg Decel eration Time: 150.5 msec MV Laurent. Peak: Aortic Valve Peak Velocity: 1.29 m/s Mean Velocity: 0.88 m/s Peak Gradient: 6.7 mmHg Mean Gradient: 3.57 mmHg AV Area (continuity): 4.89 cm^2 AV VTI: 19.65 cm AV DVI: 0.73 LVOT Peak Velocity: 0.92 m/s Pea k Gradient: 3.37 mmHg Mean Velocity: 0.61 m/s Brianna n Gradient: 1.74 mmHg LVOT Diameter: 2.93 cm LVO T VTI: 14.26 cm LVOT Area: 6.74 cm^2 LVO T SV:96.1 ml LVOT CO: 8.94 l/min LVO T CI: 3.68 l/min/m^2 Performing Organization Address City/State/Zipcode Phone Number [facility] CBC (hemogram only) (05/09/2020 4:41 AM CDT)Only the most recent of2 results within the time period is included. Pathologist Sig nature WBC 12.1 (H) 3.5 - 10.5 K/L [facility] RBC 3.95 (L) 4.63 - 6.08 M/L [facility] Hemoglobin 12.7 (L) 13.7 - 17.5 GM/DL [facility] Hematocrit 38.9 (L) 40.1 - 51.0 % [facility] MCV 98.5 (H) 79.0 - 92.2 fL [facility] MCH 32.2 25.7 - 32.2 pg [facility] MCHC 32.6 32.3 - 36.5 GM/DL [facility] RDW 15.7 (H) 11.6 - 14.4 % [facility] Platelets 255 150 - 450 K/CU MM [facility] MPV 10.4 9.4 - 12.4 fL [facility] nRBC 0 0 - 0 /100 WBC [facility] Specimen Blood Performing Organization Address City/[facility] Phone Number [facility] [address] [place] [address] CENTER Hemoglobin A1c (05/09/2020 4:41 AM CDT)Only the most recent of2 resultswithin the time period is included. Pathologist Sig nature Hemoglobin A1C 5.5 4.3 - 6.1 % [facility] Specimen Blood Narrative Performed At Company Laborer ID - ADMIN [facility] Performing Organization Address [facility] Phone Number [facility] [address] [place], [place] [address] PT/aPTT (05/08/2020 4:27 PM CDT) Pathologist Sig nature Protime 14.4 (H) 11.9 - 14.2 seconds [facility] INR 1.15 <=5.90 [facility] PTT 44.5 (H) 22.5 - 36.0 seconds [facility] Specimen Blood Narrative Performed At Effective 12/21/2018: PT Reference Range [facility] Change New: 11.9-14.2 Previous: 11.7-14.7 RECOMMENDED COUMADIN/WARFARIN INR THERAPY RANGES STANDARD DOSE: 2.0-3.0 Includes: PROPHYLAXIS for venous thrombosis, systemic embolization; TREATMENT for venous thrombosis and/or pulmonary embolus. HIGH RISK: Target INR is 2.5-3.5 for patients wiht mechanical heart valves. Performing Organization Address City/[facility]/Zipcode Phone Number [facility] [address] [place] [address] CENTER Hepatic function panel (05/08/2020 4:19 PM CDT) Protein, Total 6.6Comment: 6.0 - 8.3 [facility] Specimen slightly gm/dL [facility] Albumin 3.6Comment: 3.5 - 5.0 [facility] Specimen slightly g/dL [facility] Total Bilirubin 1.3 (H)Comment: 0.2 - 1.2 [facility] Specimen slightly mg/dL [facility] Bilirubin, Direct 0.5Comment: 0.1 - 0.5 [facility] Specimen slightly mg/dL [facility] Alkaline 94 40 - 150 U/L [facility] Phosphatase [facility] AST 46 (H)Comment: 5 - 34 U/L [facility] Specimen [facility] ALT 54Comment: 6 - 55 U/L [facility] Specimen Blood Narrative Performed At 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 [facility] Performing Organization Address [facility] Phone Number [facility] [address] [place] [address] CENTER Lipid panel (05/08/2020 4:19 PM CDT) Pathologist Sig nature Triglycerides 166Comment: Specimen mg/dL [facility] hemolyzed [facility] Cholesterol 189Comment: Specimen mg/dL [facility] hemolyzed [facility] HDL 41 mg/dL [facility] LDL Calculated 115 mg/dL [facility] Specimen Blood Narrative Performed At Triglyceride Reference Range: [facility] Low Risk <150 Borderline 150-199 High Risk 200-499 Very High Risk >=500 Cholesterol Reference Range: Low Risk <200 Borderline 200-239 High Risk >240 HDL Cholesterol Reference Range: Low Risk >=60 High Risk <40 LDL Cholesterol Reference Range: Optimal <100 Near Optimal 100-129 Borderline 130-159 High 160-189 Very High >=190 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 Performing Organization Address [facility] Cent[facility]ode Phone Number [facility] [address] [place] [address] CENTER after 05/19/2019 Insurance Payer Benefit Plan / Subscriber ID Effective Dates Phone Addre ss Type Group MEDICARE MEDICARE A B [id number] 2015-Present Medicare [employer] [id number] 2019-Present Medigap SUPPLEMENT/INDIV IDUAL Advance Directives For more information, please contact: [phone] Code Status Date Activated Date Inactivated Comments Full Code 05/08/2020 3:50 PM This code status was determined by: Patient
--- OUTSIDE RECORDS SUMMARY | 2020-05-19 18:14 | XMS REPORT | Continuity of Care Document ---
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 Staphylococcus Discern aureus (organism) Expert. GASTROINTESTINAL Active HEMORRHAGE, [place] UNSPECIFIED Medications Medication Details Route Status Patient Ordering Order Source Instructions Provider Date chlorhexidine 1 appl, TOP, Active gluconate 40 MG/ML Daily, # [address] [facility] Medicated Liquid mL, 1 Soap Refill(s), Pharmacy: [facility] Mupirocin 0.02 1 appl, Active MG/MG Topical NASAL, Q12H, 2019 [facility] Ointment X 10 day, # 15 gm, 0 Refill(s), Pharmacy: [facility] sucralfate 1 g oral 1 gm = 1 tab, Active tablet PO, QID, # 2019 [facility] 120 tab, 0 Refill(s), Pharmacy: [facility] Doxycycline 100 mg = 1 Active Monohydrate 100 MG tab, PO, 2019 [facility] Tablet Q12H, X 7 day, # 14 tab, 0 Refill(s), Pharmacy: [facility] tramadol 50 mg = 1 Active hydrochloride 50 MG tab, PO, Q6H, 2019 [facility] Oral Tablet PRN Pain, X 7 day, # 28 tab, 0 Refill(s) omeprazole 40 mg 40 mg = 1 Active oral delayed cap, PO, 2019 [facility] release capsule Daily, # 30 cap, 0 Refill(s), Pharmacy: [facility] chlorhexidine Notes: (Same Inactive gluconate 40 MG/ML As: Peridex) 2018 [facility] Medicated Liquid Soap vancomycin 2001 mg: No Longer infuse over Active 2018 [facility] 2.5 hours Mupirocin 1 appl, Inactive Route: NASAL, 2019 [facility] Q12H, Drug form: OINT, Start date: 04/18/19 21:00:00 CDT, Duration: 5 day, Stop date: 04/23/19 9:00:00 CDT, MRSA Decolonizatio n, 0 Mupirocin 0.02 1 appl, No Longer MG/MG Topical Route: NASAL, Active 2018 [facility] Ointment Q12H, Drug form: OINT, Start date: 04/18/19 21:00:00 CDT, Duration: 10 day, Stop date: 04/28/19 9:00:00 CDT, 0 Wellbutrin Notes: (Same No Longer as: Active 2018 [facility] Wellbutrin XL) "Do Not Crush" Lasix Notes: (Same No Longer as: Lasix) Active 2018 [facility] May cause GI upset. Give with food or milk. Hydrochlorothiazide Notes: (Same No Longer 04/18 as: Active 2018 [facility] Hydrodiuril) With food. Potassium Chloride Notes: (Same No Longer as: K-Dur 10) Active 2018 [facility] "Do Not Crush" With food and full glass of water Hydrochlorothiazide 100 mg, Inactive Route: PO, 2018 [facility] BID, Dosing Weight 116.3, kg, Start date: 04/17/19 17:00:00 CDT, Duration: 30 day, Stop date: 05/17/19 9:00:00 CDT Lopressor Notes: (Same Inactive as: Toprol 2018 [facility] XL) May split tab, but do not crush. Hydralazine Notes: (Same No Longer as: Active 2018 [facility] Apresoline) May interfere w/enteral feedings - Take With Food metoprolol tartrate Notes: (Same No Longer 04/17 as: Active 2018 [facility] Lopressor) Rocephin + sterile Notes: (Same No Longer water 10 mL As: Active 2018 [facility] Rocephin). Use with 100 mL NS and infuse over 30 min MEDICATION WASTE Product Size: 1000 mg Product Wasted: ___ mg Carafate Notes: May No Longer interfere Active 2018 [facility] w/enteral feeds - Take 1 hr before or 2 hr after antacids, dairy pdt, meals & minerals - On empty stomach. For patients unable to swallow tablet, dissolve in 10mL - 30mL of water or juice and stir before giving. (Same As: Carafate) vancomycin 2001 mg: Inactive infuse over 2018 [facility] 2.5 hours Alprazolam Notes: With No Longer food or milk Active 2018 [facility] (Same as: Xanax) metoprolol tartrate 25 mg, PO, Active H BID, [address] [facility] Refill(s) Hydralazine 100 mg, PO, Active BID, [address] [facility] Refill(s) Lasix 40 mg, PO, Active Daily, [address] [facility] Refill(s) Potassium Chloride 10 mEq, PO, Active H Daily, [address] [facility] Refill(s) Hydrochlorothiazide 25 mg, PO, Active H Daily, [address] [facility] Refill(s) Alprazolam 0.5 mg, PO, Active ABXQ8H, PRN 2018 [facility] as needed for anxiety, 0 Refill(s) Protonix Notes: For IV No Longer push Active 2018 [facility] reconstitute with 10 ml 0.9% sodium chloride and push over 2 minutes. (Same as: Protonix) Ativan Notes: (Same Inactive as: Ativan) 2018 [facility] cefepime Notes: (Same Inactive As: Maxipime) 2018 [facility] MEDICATION WASTE Product Size: 1000 mg Product Wasted: ___ mg vancomycin 2001 mg: No Longer infuse over Active 2018 [facility] 2.5 hours Hydrochlorothiazide 100 mg, PO, No Longer BID, [address] [facility] Refill(s) metoprolol 50 mg 50 mg = 1 No Longer oral tablet, tab, PO, BID, Active 2018 [facility] extended release 0 Refill(s) Wellbutrin 150 mg, PO, No Longer Daily, [address] [facility] Refill(s) Hydralazine Notes: (Same No Longer as: Active 2018 [facility] Apresoline) Push over 5 minutes Vancomycin 2001 mg: No Longer infuse over Active 2018 [facility] 2.5 hours For adult patients only: Round to nearest 250 mg per Medical Staff approval MEDICATION WASTE Product Size: 1000 mg Product Wasted: ___ mg cefepime Notes: (Same Inactive as: Maxipime) 2018 [facility] MEDICATION WASTE Product Size: 2000 mg Product Wasted: ___ mg normal saline 0.9% 1,000 mL, No Longer H IV 1000 mL Rate: [address] [facility] ml/hr, Infuse over: 10 hr, Route: IV, Dosing Weight 116.3 kg, Total Volume: 1,000, Start date: 04/16/19 19:42:00 CDT, Duration: 30 day, Stop date: 05/16/19 19:41:00 CDT, 2.41, m2, 0 Dextrose 50% 12.5 gm, 25 No Longer Syringe mL, Route: Active 2018 [facility] IVP, Drug Form: INJ, Dosing Weight 111.364, kg, PRN, PRN Blood Glucose Results, Start date: 04/16/19 19:09:00 CDT, Duration: 30 day, Stop date: 05/16/19 19:08:00 CDT, 0 Glucagon 1 mg, Route: No Longer IM, Drug Active 2018 [facility] form: PDR/INJ, PRN, Dosing Weight 111.364, kg, PRN Blood Glucose Results, Start date: 04/16/19 19:09:00 CDT, Duration: 30 day, Stop date: 05/16/19 19:08:00 CDT, 0 Ondansetron Notes: (Same No Longer as: Zofran) Active 2018 [facility] MEDICATION WASTE Product Size: 4 mg Product Wasted: ___ mg Acetaminophen Notes: Do not No Longer exceed [address] [facility] gm/day. (Same as: Tylenol) Allergies, Adverse Reactions, Alerts Substance Category Reaction Severity Reaction Status Date Comments S ource type Reported lisinopril Assertion Drug Active allergy [place] Immunizations No Data Provided for This Section Results Order Name Results Value Reference Date Interpretation Comments Mini rce Range HEMATOLOGY Hgb 10.7 14.0 - 04/19 MH 18.0 /2018 [facility] HEMATOLOGY Hct 31.5 42.0 - 04/19 MH 54.0 /2019 [facility] TOXICOLOGY Vanco Tr 18.2 04/18 MH /2018 [facility] TOXICOLOGY Vanco Tr TND 1230 04/18 MH /2018 [facility] ELECTROLYTE AGAP 14.9 10.0 - 04/18 MH S 20.0 /2018 [facility] ELECTROLYTE Glucose Lvl 95 70 - 99 04/[address] [facility] ELECTROLYTE BUN 15 7 - 22 04/[address] [facility] ELECTROLYTE Creatinine 0.80 0.50 - 04/18 MH S Lvl 1.40 /2018 [facility] ELECTROLYTE Sodium Lvl 139 135 - 145 04/[address] [facility] ELECTROLYTE Potassium 3.9 3.5 - 5.1 04/18 MH S Lvl /2018 [facility] ELECTROLYTE Chloride Lvl 106 95 - 109 04/[address] [facility] ELECTROLYTE CO2 22 24 - 32 04/[address] [facility] ELECTROLYTE Calcium Lvl 8.7 8.5 - 10.5 04/[address] [facility] ELECTROLYTE eGFR 91 04/18 Result MH S Comment: The [facility] eGFR is calculated using the CKD-EPI formula. In most young, healthy individuals the eGFR will be >90 mL/min/1.73m2 . The eGFR declines with age. An eGFR of 60-89 may be normal in some populations, particularly the elderly, for whom the CKD-EPI formula has not been extensively validated. Use of the eGFR is not recommended in the following populations:< br/>
Melissa viduals with unstable creatinine concentration s, including patients and those with serious co-morbid conditions.<b r/>
Patie nts with extremes in muscle mass or diet.

The data above are obtained from the National Kidney Disease Education Program (NKDEP) which additionally recommends that when the eGFR is used in patients with extremes of body mass index for purposes of drug dosing, the eGFR should be multiplied by the estimated BMI. HEMATOLOGY RBC Morph Normal Normal 04/18 MH (04/18/19 4:49 AM) [facility] est HEMATOLOGY Plt Morph Normal Normal 04/18 (04/18/19 4:49 AM) [place] HEMATOLOGY Segs 84.5 45.0 - 04/18 MH 75.0 /2019 [facility] HEMATOLOGY Lymphocytes 4.7 20.0 - 04/18 MH 40.0 /2019 [facility] HEMATOLOGY Monocytes 8.0 2.0 - 12.0 04/18 [facility] HEMATOLOGY Eosinophils 2.6 0.0 - 4.0 04/18 [facility] HEMATOLOGY Basophils 0.2 0.0 - 1.0 04/18 [facility] HEMATOLOGY Neutrophils 8.4 1.5 - 8.1 04/18 MH # /2018 [facility] HEMATOLOGY Lymphocytes 0.5 1.0 - 5.5 04/18 MH # /2018 [facility] HEMATOLOGY Monocytes # 0.8 0.0 - 0.8 04/18 [facility] HEMATOLOGY Eosinophils 0.3 0.0 - 0.5 04/18 MH # /2018 [facility] HEMATOLOGY Basophils # 0.0 0.0 - 0.2 04/18 [facility] HEMATOLOGY WBC 10.0 3.7 - 10.4 04/18 /2018 [facility] HEMATOLOGY RBC 3.52 4.70 - 04/[address] [facility] HEMATOLOGY Hgb 11.3 14.0 - 04/[address] [facility] HEMATOLOGY Hct 34.3 42.0 - 04/[address] [facility] HEMATOLOGY MCV 97.5 80.0 - 04/18 MH 94.0 /2018 [facility] HEMATOLOGY MCH 32.0 27.0 - 04/[address] [facility] HEMATOLOGY MCHC 32.8 32.0 - 04/[address] [facility] HEMATOLOGY RDW 14.5 11.5 - 04/[address] [facility] HEMATOLOGY Platelet 322 133 - 450 04/18 [facility] HEMATOLOGY MPV 8.3 7.4 - 10.4 04/18 [facility] BACTERIAL - MRSA by PCR Positive 1 04/17 Result SEROLOGY *ABN* /2018 Comment: [facility] (04/17/19 1:24 PM) "Significant Findings called to Bradford Langley on 04/17/2019 20:57 by SBP. Read Back OK." HEMATOLOGY Sed Rate 46 0 - 15 04/17 [facility] ELECTROLYTE AGAP 13.6 10.0 - 04/[address] [facility] ELECTROLYTE Glucose Lvl 91 70 - 99 04/[address] [facility] ELECTROLYTE BUN 24 7 - 22 04/[address] [facility] ELECTROLYTE Creatinine 1.00 0.50 - 04/17 MH S Lvl 1.40 /2018 [facility] ELECTROLYTE Sodium Lvl 136 135 - 145 04/[address] [facility] ELECTROLYTE Potassium 3.6 3.5 - 5.1 04/17 S Lvl /2018 [facility] ELECTROLYTE Chloride Lvl 103 95 - 109 04/[address] [facility] ELECTROLYTE CO2 23 24 - 32 04/[address] [facility] ELECTROLYTE Calcium Lvl 8.3 8.5 - 10.5 04/[address] [facility] ELECTROLYTE eGFR 76 04/17 Result Comment: The [facility] eGFR is calculated using the CKD-EPI formula. In most young, healthy individuals the eGFR will be >90 mL/min/1.73m2 . The eGFR declines with age. An eGFR of 60-89 may be normal in some populations, particularly the elderly, for whom the CKD-EPI formula has not been extensively validated. Use of the eGFR is not recommended in the following populations:< br/>
Melissa viduals with unstable creatinine concentration s, including patients and those with serious co-morbid conditions.<b r/>
Patie nts with extremes in muscle mass or diet.

The data above are obtained from the National Kidney Disease Education Program (NKDEP) which additionally recommends that when the eGFR is used in patients with extremes of body mass index for purposes of drug dosing, the eGFR should be multiplied by the estimated BMI. HEMATOLOGY WBC 10.1 3.7 - 10.4 04/17 [facility] HEMATOLOGY RBC 3.09 4.70 - 04/[address] [facility] HEMATOLOGY Hgb 10.2 14.0 - 04/[address] [facility] HEMATOLOGY Hct 30.3 42.0 - 04/17 MH 54.0 /2019 [facility] HEMATOLOGY MCV 98.1 80.0 - 04/[address] [facility] HEMATOLOGY MCH 32.9 27.0 - 04/[address] [facility] HEMATOLOGY MCHC 33.6 32.0 - 04/[address] [facility] HEMATOLOGY RDW 14.1 11.5 - 04/[address] [facility] HEMATOLOGY Platelet 299 133 - 450 04/17 [facility] HEMATOLOGY MPV 8.4 7.4 - 10.4 04/17 [facility] IMMUNOLOGY C-REACTIVE 28.2 <=2.9 mg/L 04/17 [facility] CHEM PANEL Procalcitoni <0.05 0.00 - 04/[address] [facility] Pathology Reports No Data Provided for This Section Diagnostic Reports Report Value Date Source Ext Lower Venous Patient Name: BAILEY RODRIGUEZ 04/17/2019 [facility] Unilat US : 1950; Age: 69 years y/o Male MR: [id number] Study: Ext Lower Venous Doppler Unilat US 019 16:03 CDT Ordering Physician: PCP P Clinical Indication: - Please eval for DVT; rig ht leg swelling Comparison: None Right lower extremity venous Doppler ultrasound exam demonstrates normal flow and compressibility of the common femoral, superficial femoral and tibial venous segments. Distal augmentation is preserved. IMPRESSION: No evidence for deep vein th rombosis in the right lower extremity. SL: [id number] Consultation Notes No Data Provided for This Section Discharge Summaries No Data Provided for This Section History and Physicals No Data Provided for This Section Vital Signs Vital Sign Value Date Comments Source Temperature Oral (F) 98.1 F 04/19/2019 [facility] Heart Rate 71 04/19/2019 [facility] Respitory Rate 18 04/19/2019 [facility] Systolic (mm Hg) 153 04/19/2019 [facility] t Diastolic (mm Hg) 75 04/19/[address] [facility] [address] Temperature Oral (F) 98.0 F [facility] 85 04/19/2019 [facility] Respitory Rate 18 04/19/2019 [facility] Systolic (mm Hg) 170 04/19/[facility] Diastolic (mm Hg) 86 04/19/[address] [facility] [address] Temperature Oral (F) 98.0 F [facility] 85 04/19/2019 [facility] Respitory Rate 18 04/19/2019 [facility] Systolic (mm Hg) 166 04/19/2019 [facility] Diastolic (mm Hg) 76 04/19/2019 [facility] Height 187.96 cm 04/17/2019 [facility] Height 187.96 cm 04/17/2019 [facility] Height 187.96 cm 04/17/2019 [facility] Weight 116.3 04/17/2019 [facility] BMI Calculated 32.92 04/17/2019 [facility] Encounters Location Location Encounter Encounter Reason Attending ADM DC Stat us Source Details Type Number For Provider Date Date Visit [facility] [id number] Mikey Veliz 04/17 04/19 [facility] Procedures No Data Provided for This Section Assessment and Plan Assessment and Plan Date Source Extracted from:Title: Progress Note 04/19/2019 [facility] Author: Camryn Mcleod MD Date: 04/19/19 1.Acute GI bleeding(K92.2) 2.Cellulitis of right leg(L03.115) 3.Sepsis(A41.9) 4.Leukocytosis(D72.829) 5.Hypertension(I10) 6.Microscopic hematuria(R31.29) Acute duodenitis(K29.80) Acute gastritis(K29.00) NO further bleeding noted hGb is stable Patient is being discharged today Advised to follow up with PCP to repeat H&H in 7 days Extracted from:Title: Consult Note Author: Camryn Mcleod MD Date: 04/17/19 1.Acute GI bleeding(K92.2) Plan: Maintain 2 large bore IV line Type and cross, Transfuse as necessary to Goal hgb > 7-8 g/d L Pantoprazole 80 mg IV bolus followed by 8mg/hour drip NPO EGD 2.Cellulitis of right leg(L03.115) 3.Sepsis(A41.9) 4.Leukocytosis(D72.829) 5.Hypertension(I10) 6.Microscopic hematuria(R31.29) Thank you for allowing me to participat e in her care and please do not hesitate to contact me with any questions or concerns. Please excuse any typographical errors, documentation prepared using electronic dictation software andmay contain unintendedword substitutions. Camryn Mcleod MD [facility] Gastroenterology/Hepatology Office: [phone] Extracted from:Title: History and Physical Author: Mikey Veliz MD Date: 04/16/19 1.Acute GI bleeding(K92.2) Patient could have peptic ulcer disease. IV Protonix is continued. Gastroenterology is consulted. H/H will be repeated nowand then in the morning to follow H/H trends. Ordered: 2.Cellulitis of right leg(L03.115) Since the patient was on immunosuppressa nt,IV cefepime and IV vancomycin are initiated. 3.Sepsis(A41.9) Secondary toright leg cellulitis. Sepsi s protocol is initiated. IV cefepime and IV vancomycinand IV fluids are initiated. 4.Leukocytosis(D72.829) Secondary to right leg cellulitis. CBC w ill be repeated in morning to follow WBC trends. 5.Hypertension(I10) Patient's blood pressure is controlled a t this time. Hydralazine IV as needed will be given if systolic blood pressurebecomes greater than 160. 6.Microscopic hematuria(R31.29) This finding is discussed with the isaias posada. Microscopic hematuria may indicate bladder pathology.He is instructed to follow with his primary care physician in 1 to 2 weeks after this hospitalizationfor further follow-upof micro scopic hematur ia. The patient verbalizedunderstanding of the instruction and agreed to follow. CODE STATUS is discussed with the isaias posada. His wish is to be in full resuscitation status. SCD Plan of Care No Data Provided for This Section Social History Social History Date Source Social History TypeResponse 04/17/2019 [facility] Alcohol Current, Type Wine. Substance Abuse Use: None. Smoking Status Current every day smoker; Type: Cigarett es; Ready to change: No; Concerns about tobacco use in household: Yes; Exposure to Tobacco Smoke None; Cigarette Smoking Last 365 Days Yes; Reg Smoking Cessation Counseling Yes entered on: 04/16/19 Family History No Data Provided for This Section Advance Directives No Data Provided for This Section Functional Status No Data Provided for This Section
--- OUTSIDE RECORDS SUMMARY | 2020-05-19 18:18 | XMS REPORT | Continuity of Care Document ---
:1950 Author Organization [facility] t Address [address] [place] [address] Care Team Providers Name Role Phone Virgen PONCE, Vu Reese Primary Care Physician Pina PONCE Attending Clinician Ondina Javed MD Attending Clinician PINA Attending Clinician Unavailable George PONCE Attending Clinician Rodolfo DUBOIS Attending Clinician Unavailable Jose Alfredo Attending Clinician PINA Admitting Clinician Unavailable Jose Alfredo Admitting Clinician Payers Payer Name Policy Type Policy Effective Date Expiration Date Sour ce Number MEDICAREMEDICARE A [id number] RADHA Carpio UtezplfhDS530/07/2014- 00:00:00 - M [facility]ical [facility] MCR [id number] 2019 RADHA Harris SUPPLEMENT/INDIVIDUAL 00:00:00 - M edical [facility] [id number] 2019 -PresentMedipaoli MEDICAREMEDICARE PART [id number] 2015 Anatoly Encarnacion AND 00:00:00 [facility] [id number] 2014[place] [id number] [address] [place] OF 00:00:00 Orthodox [id number] 015-PresentCommercial Problems Condition Condition Condition Status Onset Resolution Last Treating Co mments Source Name Details Category Date Date Treatment Clinician Date NSTEMI NSTEMI Disease Active 2019-[address] [facility] ([facility] (non-ST 0-14 [facility] - elevated elevated 00:00: Medica l myocardial myocardial 00 Ce nter infarction infarction ) ) LOWER GI Diagnosis Active 2019-05-05 M emoria BLEED - 21:51:00 l LOWER GI 00:00: Rajendra n BLEED 00 Active 04/16/2019 [facility] Localized Localized Disease Active 2016-07 Last [facility] edema edema 08-16 Assessmen Methodi 00:00: t & Plan: st 00 Will add lasix and potassium and check labs in one week Preop Preop Disease Active [facility] cardiovasc cardiovasc 5-18 Assessmen Methodi ular exam ular exam 00:00: t & Plan: s t 00 OK to proceed with surgery at low periop CV risk Shortness Shortness Disease Active Last [facility] of breath of breath 2-17 Assessmen M ethodi 00:00: t & Plan: st 00 No evidence of ischemia Carotid Carotid Disease Active 2015-07 Overview: [facility] ton stenosis, stenosis, 0-24 S/P Right M ethodi right right 00:00: CEALast st 00 Assessmen t & Plan: s/p right CEA; mild plaquing is noted by Doppler 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 : [place] rosis of rosis of 0-24 S/P PCI [place] 00:[facility]: st coronary coronary 00 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 [facility] GASTROINTE Diagnosis Active 2019-05-05 Memoria STINAL 21:51:00 l HEMORRHAGE Rajendra n , GASTROINTE UNSPECIFIE STINAL D HEMORRHAGE , UNSPECIFIE D Active [facility] Allergies, Adverse Reactions, Alerts Allergy Allergy Status Severity Reaction(s) Onset Inactive Treating Comm ents Source Name Type Date Date Clinician lisinopr DA Active [facility] 6-29 Clear 00:00: [place] 00 [facility] lisinopr DA Active [facility] 4-12 [facility] [place] Lisinopr Propensi Active [place] ty to 5-21 Methodi adverse 00:00: st reaction 00 s to drug No Known DA Active U 2016-07 [facility] Drug 2-20 [place] Allergie 00:00: Orthope s 00 [facility]osp[facility] l lisinopr lisinopr Active Memori a il il l Valent[address] Social History Social Habit Start Date Stop Date Quantity Comments Source Sex Assigned At [facility] Exposure to Not sure [address] (event) Alcohol intake 2020-05-15 2020-05-15 Current drinker of Ariana Ceja [facility] - 00:00:00 00:00:00 alcohol (finding) [facility] Alcohol Comment 2020-05-15 2020-05-15 Occassionally [facility] - 00:00:00 00:00:00 [facility] Tobacco use and 2019-08-15 2019-08-15 Current user [place] exposure 00:00:00 00:00:00 [facility] Social History 2019-04-17 2019-04-17 Shawn juarez 01:36:15 01:36:15 Tobacco Comment 2019-04-03 2019-04-03 trying to quit [place] 00:00:00 00:00:00 [facility] Smoking Status Start Date Stop Date Source Current every day smoker 2020-05-15 00:00:00 [facility] Medications Ordered Filled Start Stop Current Ordering Indication Dosage Frequency Signature Comments Components Source Medication Medication Date Date Medication? Clinician (SIG) Name Name buPROPion 2019-07 Yes 450mg QD Take [address] (WELLBUTRIN 0-25 mg by [facility] - XL) 150 MG 17:26: mouth Medica l 24 hr 43 daily. Center tablet dupilumab 2019-07 Yes 300mg Inject [address] (Dupixent) 0-25 mg [facility] - 300 mg/2 mL 17:26: subcutaneo Medical Syrg 43 usly once Center every 2 weeks. ALPRAZolam 2019-07 Yes anxiety .25mg Take 0.[address] (XANAX) 0-25 mg by [facility] - 0.25 MG 17:26: mouth Medical tablet 43 daily as Center needed for Anxiety. metoprolol 2019-07- No 25mg Q.5D Take [address] tartrate 0-25 10-25 by mouth 2 Luke s - (LOPRESSOR) 12:26: 00:00 (two) Medi arin 25 MG 03 :00 times Center tablet daily. hydrALAZINE 2019-07- No 50mg Q.5D Take [address] (APRESOLINE 0-25 10-25 by mouth 2 L ukes - ) 50 MG 12:26: 00:00 (two) Medical tablet 03 :00 times Center daily. apixaban 2019-07 Yes 2.5mg Q.5D Take [address] (ELIQUIS) 0-25 tablet [facility] - 2.5 mg Tab 00:00: (2.5 mg Medi arin tablet 00 total) by Center mouth 2 (two) times daily. albuterol-i 2019-07 Yes 2{puff} Inhale [address] pratropium 0-25 puffs by [facility] - (Combivent 00:00: mouth via Me dical Respimat) 00 inhaler Center 20-100 every 6 mcg/actuati (six) on Mist hours as inhaler needed for Wheezing. amiodarone 2019-07- Yes 100mg Q.5D Take [address] (PACERONE) 0-25 10-25 tablet [facility] - 100 MG 00:00: 23:59 (100 mg Medical tablet 00 :00 total) by Center mouth 2 (two) times daily. atorvastati 2019-07- Yes 80mg QD Take [address] n (LIPITOR) 0-25 10-25 tablet (80 L ukes - 80 MG 00:00: 23:59 mg total) Medica l tablet 00 :00 by mouth Center nightly. clobetasoL 2019-07- Yes Q.5D Apply [facility] (TEMOVATE) 0-25 10-25 topically Dennys es - 0.05 % 00:00: 23:59 2 (two) Medical ointment 00 :00 times Center daily. metoprolol 2019-07- Yes 37.5mg Q.5D Take 1.[address] succinate 0-25 10-25 tablets [facility] - (TOPROL-XL) 00:00: 23:59 (37.5 mg M edical 25 MG 24 hr 00 :00 total) by Nate ter tablet mouth 2 (two) times daily. budesonide- 2019-07- Yes 2{puff} Q.5D Inhale [address] formoteroL 0-25 10-25 puffs by Luke s - (Symbicort) 00:00: 23:59 mouth via Medical 80-4.5 00 :00 inhaler 2 Center mcg/actuati (two) on inhaler times daily. acetaminoph 2019-07- Yes 1000mg Take [address] en 0-25 11-04 tablets [facility] - (TYLENOL) 00:00: 23:59 (1,000 mg Me dical 500 MG 00 :00 total) by Center tablet mouth every 8 (eight) hours as needed for up to 10 days. atorvastati 2019-0 Yes 80mg QD Take 80 mg [place] n (LIPITOR) 1-21 by mouth Meth chelsi 80 MG 11:41: daily. st tablet 20 ALPRAZolam 2020-0 Yes .5mg QD Take 0.5 [facility] (XANAX) 0.5 1-21 mg by Methodi MG tablet 11:41: mouth st 20 nightly as needed for anxiety. BUPROPION 2020-0 Yes 450mg QD Take [address] HCL 1-21 mg by Methodi (WELLBUTRIN 11:41: mouth st ORAL) 20 daily. omeprazole 2020-0 Yes 40mg QD Take 40 mg [place] (PriLOSEC) 1-21 by mouth Metho di 40 MG 11:41: daily. st capsule 20 sucralfate Yes 1g Q.25D Take 1 g [place] (CARAFATE) -21 by mouth 4 Met hodi 1 gram 11:41: (four) st tablet 20 times a day. traMADol Yes acute pain 50mg Q6H Take 50 mg [place] (ULTRAM) 50 1-21 by mouth Meth chelsi mg tablet 11:41: every 6 st 20 (six) hours as needed for moderate pain .Acute Pain. hydroCHLORO Yes 25mg QD Take 25 mg [place] thiazide 1-21 by mouth Methodi (HYDRODIURI 11:41: daily. st L) 25 MG 20 tablet chlorhexidi Yes 1 appl, Mem oria ne 9-25 TOP, l gluconate 16:26: Daily, # Herm ondina 40 MG/ML 00 960 mL, 1 Medicated Refill(s), Liquid Soap Pharmacy: [facility] Mupirocin Yes 1 appl, Memor ia 0.02 MG/MG 9-25 NASAL, l Topical 16:26: Q12H, X 10 Herm ondina Ointment 00 day, # 15 gm, 0 Refill(s), Pharmacy: [facility] sucralfate Yes 1 gm = 1 Mem oria 1 g oral 9-25 tab, PO, l tablet 16:26: QID, # 120 Annika nn 00 tab, 0 Refill(s), Pharmacy: [facility] Doxycycline Yes 100 mg = 1 Memoria Monohydrate 9-25 tab, PO, l 100 MG Oral 16:26: Q12H, X 7 H ermann Tablet 00 day, # 14 tab, 0 Refill(s), Pharmacy: [facility] tramadol Yes 50 mg = 1 Perez wicho hydrochlori 9-25 tab, PO, l de 50 MG 16:26: Q6H, PRN Annika nn Oral Tablet 00 Pain, X 7 day, # 28 tab, 0 Refill(s) omeprazole Yes 40 mg = 1 Me moria 40 mg oral 9-25 cap, PO, l delayed 16:26: Daily, # Rajendra n release 00 30 cap, 0 capsule Refill(s), Pharmacy: [facility] chlorhexidi No Notes: Perez wicho ne 9-25 (Same As: l gluconate 14:00: Peridex) Herm ondina 40 MG/ML 00 Medicated Liquid Soap vancomycin No 2001 mg: Me moria 04-19 infuse l 07:00: over 2.5 Ducor 00 hours Mupirocin No 1 appl, Memor ia 04-19 Route: l 02:00: NASAL, Ducor 00 Q12H, Drug form: OINT, Start date: 04/18/19 21:00:00 CDT, Duration: 5 day, Stop date: 04/23/19 9:00:00 CDT, MRSA Decoloniza tion, 0 Mupirocin No 1 appl, Memor ia 0.02 MG/MG 04-19 Route: l Topical 02:00: NASAL, Valentín Ointment 00 Q12H, Drug form: OINT, Start date: 04/18/19 21:00:00 CDT, Duration: 10 day, Stop date: 04/28/19 9:00:00 CDT, 0 Wellbutrin No Notes: Memor ia - (Same as: l 14:00: Wellbutrin Valentín 00 XL) "Do Not Crush" Lasix No Notes: Memoria 9-24 (Same as: l 14:00: Lasix) May cause GI upset. Give with food or milk. Hydrochloro No Notes: Perez wicho thiazide 04-18 (Same as: l 14:00: Hydrodiuri 00 l) With food. Potassium No Notes: Memori a Chloride - (Same as: l 14:00: K-Dur 10) "Do Not Crush" With food and full glass of water Hydrochloro No 100 mg, Mem oria thiazide 04-17 Route: PO, l 22:00: BID, Ducor Dosing Weight 116.3, kg, Start date: 04/17/19 17:00:00 CDT, Duration: 30 day, Stop date: 05/17/19 9:00:00 CDT Lopressor 2018- No Notes: Memori a - (Same as: l 22:00: Toprol XL) May split tab, but do not crush. Hydralazine No Notes: Perez wicho - (Same as: l 22:00: Apresoline ) May interfere w/enteral feedings - Take With Food metoprolol No Notes: Memor ia tartrate 04-17 (Same as: l 22:00: Lopressor) Rocephin + No Notes: Memor ia sterile - (Same As: l water 10 mL 22:00: Rocephin). Use with 100 mL NS and infuse over 30 min MEDICATION WASTE Product Size: 1000 mg Product Wasted: ___ mg Carafate No Notes: May Mem oria - interfere l 18:00: w/enteral feeds - Take 1 hr before or 2 hr after antacids, dairy pdt, meals & minerals - On empty stomach. For patients unable to swallow tablet, dissolve in 10mL - 30mL of water or juice and stir before giving. (Same As: Carafate) vancomycin No 2001 mg: Me moria 04-17 infuse l 18:00: over 2.5 hours Alprazolam No Notes: Memor ia 04-17 With food l 17:05: or milk (Same as: Xanax) metoprolol Yes 25 mg, PO, M emoria tartrate 04-17 BID, 0 l 16:58: Refill(s) Hydralazine Yes 100 mg, Mem oria - PO, BID, 0 l 16:58: Refill(s) Lasix Yes 40 mg, PO, Memori a - Daily, 0 l 16:58: Refill(s) Potassium Yes 10 mEq, Memor ia Chloride 9- PO, Daily, l 16:58: 0 Refill(s) Hydrochloro Yes 25 mg, PO, Memoria thiazide 9- Daily, 0 l 16:58: Refill(s) Alprazolam Yes 0.5 mg, Perez wicho - PO, l 16:58: ABXQ8H, PRN as needed for anxiety, 0 Refill(s) Protonix No Notes: For Mem oria 04-17 IV push l 14:00: reconstitu te with 10 ml 0.9% sodium chloride and push over 2 minutes. (Same as: Protonix) Ativan No Notes: Memoria 04-17 (Same as: l 08:23: Ativan) cefepime No Notes: Memoria 04-17 (Same As: l 08:00: Maxipime) MEDICATION WASTE Product Size: 1000 mg Product Wasted: ___ mg vancomycin No 2001 mg: Me moria 04-17 infuse l 03:00: over 2.5 00 hours Hydrochloro No 100 mg, Mem oria thiazide 04-17 PO, BID, 0 l 01:59: Refill(s) metoprolol No 50 mg = 1 Me moria 50 mg oral 04-17 tab, PO, l tablet, 01:59: BID, 0 Ducor 00 Refill(s) release Wellbutrin No 150 mg, Perez wicho 04-17 PO, Daily, l 01:59: 0 Ducor 00 Refill(s) Hydralazine No Notes: Perez wicho 04-17 (Same as: l 01:42: Apresoline ) Push over 5 minutes Vancomycin No 2001 mg: Me moria 04-17 infuse l 01:26: over 2.5 00 hours For adult patients only: Round to nearest 250 mg per Medical Staff approval MEDICATION WASTE Product Size: 1000 mg Product Wasted: ___ mg cefepime No Notes: Memoria 04-17 (Same as: l 01:22: Maxipime) MEDICATION WASTE Product Size: 2000 mg Product Wasted: ___ mg normal No 1,000 mL, Memori a saline 0.9% 04-17 Rate: 100 l IV 1000 mL 00:42: ml/hr, Annika Infuse over: 10 hr, Route: IV, Dosing Weight 116.3 kg, Total Volume: 1,000, Start date: 04/16/19 19:42:00 CDT, Duration: 30 day, Stop date: 05/16/19 19:41:00 CDT, 2.41, m2, 0 Dextrose No 12.5 gm, Memor ia 50% Syringe 04-17 25 mL, l 00:09: Route: Ducor 00 IVP, Drug Form: INJ, Dosing Weight 111.364, kg, PRN, PRN Blood Glucose Results, Start date: 04/16/19 19:09:00 CDT, Duration: 30 day, Stop date: 05/16/19 19:08:00 CDT, 0 Glucagon No 1 mg, Memoria 04-17 Route: IM, l 00:09: Drug form: Ducor 00 PDR/INJ, PRN, Dosing Weight 111.364, kg, PRN Blood Glucose Results, Start date: 04/16/19 19:09:00 CDT, Duration: 30 day, Stop date: 05/16/19 19:08:00 CDT, 0 Ondansetron No Notes: Perez wicho 04-17 (Same as: l 00:09: Zofran) MEDICATION WASTE Product Size: 4 mg Product Wasted: ___ mg Acetaminoph No Notes: Do Cade maryshashank en 04-17 not exceed l 00:09: 4 gm/day. (Same as: Tylenol) metoprolol Yes 25mg Q.5D Take 1 [place] tartrate 04-10 tablet (25 Metho di (LOPRESSOR) 00:00: mg total) s t 25 mg 00 by mouth 2 tablet (two) times a day. potassium 2019- No 10meq QD Take 1 [place] chloride 04-04 tablet (10 Meth chelsi (KLOR-CON) 00:00: 23:59 mEq total) st 10 MEQ CR 00 :00 by mouth tablet daily. hydrALAZINE 2019- No 100mg Q.5D Take 1 [place] (APRESOLINE 04-04 tablet Metho di ) 100 MG 00:00: 23:59 ([address] tablet 00 :00 total) by mouth 2 (two) times a day. furosemide 2019-0 2019- No 40mg QD Take 1 [place] (LASIX) 40 04-04 tablet (40 Me thodi mg tablet 00:00: 00:00 mg total) st 00 :00 by mouth daily. Immunizations Ordered Immunization Filled Immunization Date Status Commen ts Source Name Name INFLUENZA QIV 2020-05-11 Completed [facility] s - ADJUVANTED PF IM 00:00:00 Medical Center Vital Signs Vital Name Observation Time Observation Value Comments Source Systolic blood 2020-05-19 15:50:00 117 mm[Hg] [facility] Diastolic blood 2020-05-19 15:50:00 61 mm[Hg] [facility] Heart rate 2020-05-19 15:50:00 57 /min [facility] Body temperature 2020-05-19 15:50:00 36.67 Jimena [facility] Respiratory rate 2020-05-19 15:50:00 18 /min [facility] Oxygen saturation in 2020-05-19 15:50:00 98 /min [facility] - Arterial blood by Medical Ce nter Pulse oximetry Body weight 2020-05-19 09:16:00 114.3 kg [facility] BMI 2020-05-19 09:16:00 32.35 kg/m2 [facility] Body height 2020-05-09 17:00:00 188 cm [facility] Systolic blood 2019-08-15 11:40:00 175 mm[Hg] [facility] pressure Diastolic blood 2019-08-15 11:40:00 82 mm[Hg] Fabricio on [facility] pressure Heart rate 2019-08-15 11:40:00 94 /min [place] [facility] Body height 2019-08-15 11:40:00 188 cm [facility] Body weight 2019-08-15 11:40:00 117.935 kg [facility] BMI 2019-08-15 11:40:00 33.38 kg/m2 [facility] Temperature Oral (F) 2019-04-19 16:37:00 98.1 F [facility] Valentín Heart Rate 2019-04-19 16:37:00 [facility] Respitory Rate 2019-04-19 16:37:00 Laith Mcneil Systolic (mm Hg) 2019-04-19 16:37:00 Perez rial Valentín Diastolic (mm Hg) 2019-04-19 16:37:00 Mem orial [place] Temperature Oral (F) 2019-04-19 13:29:00 98.0 F [facility] Heart Rate 2019-04-19 13:29:00 [facility] Respitory Rate 2019-04-19 13:29:00 Memori al Valentín Systolic (mm Hg) 2019-04-19 13:29:00 Perez rial Valentín Diastolic (mm Hg) 2019-04-19 13:29:00 Mem orial [place] Temperature Oral (F) 2019-04-19 08:50:00 98.0 F [facility] Heart Rate 2019-04-19 08:50:00 [facility] Respitory Rate 2019-04-19 08:50:00 Memori al [place] Systolic (mm Hg) 2019-04-19 08:50:00 Perez rial Valentín Diastolic (mm Hg) 2019-04-19 08:50:00 Mem orial Valentín Height 2019-04-17 11:03:00 187.96 cm [facility] Height 2019-04-17 06:02:00 187.96 cm [facility] Valentín Height 2019-04-17 01:24:00 187.96 cm [facility] Valentín Weight 2019-04-17 01:24:00 [facility] Ducor BMI Calculated 2019-04-17 01:24:00 Memori al [facility] Procedures Procedure Date / Time Performing Clinician Source Performed BASIC METABOLIC PANEL 2020-05-19 04:29:[address] [facility] - (7) [facility] CBC W/PLT COUNT & AUTO 2020-05-18 08:53:[address] [facility] - DIFFERENTIAL [facility] ECG 12-LEAD 2020-05-18 05:03:44 Unknown, Hl7 Doctor [facility] SARS-COV2/RT-PCR ([facility] & 2020-05-17 18:15:[address] [facility] - REF LABS) [facility] BASIC METABOLIC PANEL 2020-05-17 12:03:[address] [facility] - (7) [facility] ECG 12-LEAD 2020-05-17 05:38:46 [facility] MAGNESIUM 2020-05-16 06:06:00 [facility] PHOSPHORUS 2020-05-16 06:06:00 [facility] BASIC METABOLIC PANEL 2020-05-16 06:06:00 [facility] () [facility] CBC W/PLT COUNT & AUTO 2020-05-16 06:06:00 [facility] ECG 12-LEAD 2020-05-16 04:48:14 Unknown, Hl7 [facility] ECG 12-LEAD 2020-05-15 06:16:05 [facility] MAGNESIUM 2020-05-15 05:47:00 [facility] PHOSPHORUS 2020-05-15 05:47:00 [facility] BASIC METABOLIC PANEL 2020-05-15 05:47:00 [facility] () [facility] CBC W/PLT COUNT & AUTO 2020-05-15 05:47:00 [facility] ECG 12-LEAD 2020-05-14 05:01:50 Unknown, Hl7 [facility] MAGNESIUM 2020-05-14 04:52:00 [facility] PHOSPHORUS 2020-05-14 04:52:00 [facility] APTT 2020-05-14 04:52:00 [facility] BASIC METABOLIC PANEL 2020-05-14 04:52:00 [facility] () [facility] CBC W/PLT COUNT & AUTO 2020-05-14 04:52:[address] [facility] S [facility] ECG 12-LEAD 2020-05-13 05:52:05 Unknown, Hl7 [facility] XR CHEST 1 VIEW 2020-05-13 04:05:00 Mariela Joel [facility] - PORTABLE/BEDSIDE Medical Center MAGNESIUM 2020-05-13 03:12:00 [facility] PHOSPHORUS 2020-05-13 03:12:00 Diallo, [place] [facility] COMPREHENSIVE METABOLIC 2020-05-13 03:12:00 Paco, Benson [facility] - PANEL [facility] APTT 2020-05-13 03:12:00 Yoel [place] [facility] CALCIUM, IONIZED 2020-05-13 03:12:00 Wisam [facility] LACTIC ACID, VENOUS 2020-05-13 03:12:00 Wisam [facility] PROCALCITONIN 2020-05-13 03:12[facility] W[facility] & AUTO 2020-05-13 03:12[facility] APTT 2020-05-12 20:05:00 Dre Lopez [facility] BASIC METABOLIC PANEL 2020-05-12 12:43:00 Wisam [facility] (7) [facility] MAGNESIUM 2020-05-12 12:43:00 Wisam [facility] PLATELET COUNT 2020-05-12 12:43:00 AndrewTimothy hinds [facility] APTT 2020-05-12 12:43:00 AndrewTimothy [facility] ECG 12-LEAD 2020-05-12 07:43:19 Unknown, 7 [facility] ECG 12-LEAD 2020-05-12 07:40:41 Unknown, 7 [facility] ECG 12-LEAD 2020-05-12 04:48:44 Unknown, 7 [facility] ECG 12-LEAD 2020-05-12 04:47:31 Unknown, 7 [facility] ECG 12-LEAD 2020-05-12 04:46:36 Unknown, 7 [facility] ECG 12-LEAD 2020-05-12 04:45:30 Unknown, [address] ECG 12-LEAD 2020-05-12 04:43:07 Unknown, 7 [facility] MAGNESIUM 2020-05-12 03:45:00 [facility] PHOSPHORUS 2020-05-12 03:45:00 [facility] COMPREHENSIVE METABOLIC 2020-05-12 03:45:[facility] APTT 2020-05-12 03:45:00 [facility] CBC W/PLT COUNT & AUTO 2020-05-12 03:45:[address] [facility] S t [facility] - DIFFERENTIAL [facility] XR CHEST 1 VIEW 2020-05-12 00:47:00 Badjaerin, [facility] PORTABLE/BEDSIDE Medical [place] ECG 12-LEAD 2020-05-11 20:52:46 Unknown, Hl7 Doctor [facility] ECG 12-LEAD 2020-05-11 05:41:13 [facility] MAGNESIUM 2020-05-11 05:25:00 [facility] PHOSPHORUS 2020-05-11 05:25:00 [facility] COMPREHENSIVE METABOLIC 2020-05-11 05:25:00 PacoBenson [facility] APTT 2020-05-11 05:25:00 [facility] TROPONIN I 2020-05-11 05:25:[address] [facility] LACTIC ACID, VENOUS 2020-05-11 05:25:00 Badjatimagdiel [facility] CBC W/PLT COUNT & AUTO 2020-05-11 05:25:[address] [facility] S [facility] DIFFERENTIAL [facility] XR CHEST 1 VIEW 2020-05-11 03:15:00 Badjatimagdiel, [facility] PORTABLE/BEDSIDE [facility] TROPONIN I 2020-05-11 00:00:[address] [facility] APTT 2020-05-11 00:00:00 Dre Lopez [facility] MAGNESIUM 2020-05-11 00:00:00 [facility] POTASSIUM 2020-05-11 00:00:00 [facility] TROPONIN I 2020-05-10 18:17:00 Gigi Dimitri Jules [facility] POTASSIUM 2020-05-10 18:17:00 [facility] MAGNESIUM 2020-05-10 18:17:00 [facility] SARS-COV2/RT-PCR ([facility] & 2020-05-10 11:29:00 [facility] TROP[facility] 2020-05-10 11:29:00 [facility] APTT 2020-05-10 09:25:00 [facility] TROPONIN I 2020-05-10 07:19:00 [facility] ECG 12-LEAD 2020-05-10 06:01:23 Unknown, Hl7 Doctor [facility] MAGNESIUM 2020-05-10 04:19:00 [facility] PHOSPHORUS 2020-05-10 04:19:00 [facility] B-TYPE NATRIURETIC 2020-05-10 04:19:00 Paco, [facility] - FACTOR (BNP) [facility] LACTIC ACID, VENOUS 2020-05-10 04:19:00 Paco [facility] VITAMIN B12 AND FOLATE 2020-05-10 04:19:00 Paco Benson [facility] IRON, TIBC, % SAT. 2020-05-10 04:19:[address] [facility] St kes - (WITHOUT FERRITIN) [facility] FERR[facility]IN 2020-05-10 04:19:00 PacoBenson [facility] BASIC METABOLIC PANEL 2020-05-10 04:19:00 Mikey Goins [facility] (7) [facility] CBC W/PLT COUNT & AUTO 2020-05-10 04:19:[address] [facility] S [facility] - DIFFERENTIAL [facility] XR CHEST 1 VIEW 2020-05-10 02:48:00 Benson Antonio [facility] - PORTABLE/BEDSIDE [facility] TROPONIN I 2020-05-10 01:31:00 Dre Lopez [facility] POCT-ACT 2020-05-09 21:30:00 Mikey Goins [facility] 2D ECHO W/ DOPPLER 2020-05-09 20:36:59 Dre Lopez [facility] (CW/PW/COLOR) [facility] COMPREHENSIVE METABOLIC 2020-05-09 18:32:00 [facility] POCT-ACT 2020-05-09 18:07:00 [facility] 2020-05-09 17:53:00 Dre Lopez [facility] ECG 12-LEAD 2020-05-09 16:53:28 Unknown, Hl7 [facility] POCT-ACT 2020-05-09 15:08:00 Mikey Goins [facility] POCT-ACT 2020-05-09 14:48:00 Mikey Goins [facility] POCT-ACT 2020-05-09 14:25:[address] [facility] L CATH & PCI 2020-05-09 13:03:[address] [facility] TROPONIN I 2020-05-09 11:32:00 Dre Lopez [facility] APTT 2020-05-09 11:32:00 Dre Lopez [facility] APTT 2020-05-09 05:38:00 Dre Lopez [facility] BASIC METABOLIC PANEL 2020-05-09 04:41:00 Dre Lopez [facility] () [facility] HEMOGLOBIN A1C 2020-05-09 04:41:00 Adria Catalan [facility] CBC (HEMOGRAM ONLY) 2020-05-09 04:41:00 Dre Lopez [facility] TROPONIN I 2020-05-09 04:41:00 Dre Lopez [facility] APTT 2020-05-08 23:43:00 Dre Lopez [facility] TROPONIN I 2020-05-08 23:43:00 Dre Lopez [facility] ECG 12-LEAD 2020-05-08 16:31:06 Unknown, Hl7 [facility] PT/APTT 2020-05-08 16:27:00 Gigi Monroe [facility] TROPONIN I 2020-05-08 16:19:00 Dimitri Yu [facility] BASIC METABOLIC PANEL 2020-05-08 16:19:00 Dimitri Yu [facility] () [facility] CBC (HEMOGRAM ONLY) 2020-05-08 16:19:[address] [facility] HEPATIC FUNCTION PANEL 2020-05-08 16:19:[address] [facility] LIPID PANEL 2020-05-08 16:19:00 Dimitri Yu [facility] HEMOGLOBIN A1C 2020-05-08 16:19:[address] [facility] XR CHEST 1 VIEW 2020-05-08 15:59:00 Dimitri Yu [facility]/BEDSIDE [facility] CV STRESS TEST NUCLEAR 2019-08-15 11:33:12 [facility] CARDIO NM MYOCARDIAL PERFUSION 2019-08-15 11:33:12 Charlie Vazquezu [facility] REST STRESS 1 DAY US CAROTID DUPLEX 2019-08-02 15:25:10 Charlie Vazquez [facility] BILATERAL TTE COMPLETE, WO 2019-08-02 14:56:08 Charlie Vazquez [facility] CONTRAST, W DOPPLER ([id number]) Plan of Care Planned Activity Planned Date Details Comments Source Future Scheduled 2020-02-24 INFLUENZA VACCINE [facility] Test 00:00:00 [code = INFLUENZA VACCINE] Future Scheduled 2016 MEDICARE ANNUAL [facility] - Test 00:00:00 WELLNESS (YEAR 2 or Medical Center FIRST YEAR if no IPPE) [code = MEDICARE ANNUAL WELLNESS (YEAR 2 or FIRST YEAR if no IPPE)] Future Scheduled 2015 65+ PNEUMOCOCCAL [facility] Test 00:00:00 VACCINE (1 of 1 - PPSV23) [code = 65+ PNEUMOCOCCAL VACCINE (1 of 1 - PPSV23)] Future Scheduled 2015 PNEUMOCOCCAL 65+ YRS [facility] - Test 00:00:00 (1 of 1 - Medical Center [id number] PCV13) [code = PNEUMOCOCCAL 65+ YRS (1 of 1 - [id number] PCV13)] Future Scheduled 2000-02-26 COLONOSCOPY SCREENING [facility] Test 00:00:00 [code = COLONOSCOPY SCREENING] Future Scheduled 2000-02-26 SHINGLES VACCINES [place] [facility] Test 00:00:00 (#1) [code = SHINGLES VACCINES (#1)] Future Scheduled [address] [facility] Test 00:00:00 malignant neoplasm of [facility] colon (procedure) [code = 792966614] Medication 2020-05-20 clopidogreL (PLAVIX) [facility] - 00:00:00 75 mg tablet [code = [facility] 881672] Medication 2020-05-20 folic acid (FOLVITE) [facility] - 00:00:00 1 MG tablet [code = [facility] 457127] Medication 2020-05-20 torsemide (DEMADEX) [facility] - 00:[facility]00 10 MG tablet [code = [facility] 416558] Medication 2020-05-[address] aspirin [address] [facility] - 00:00:00 chewable tablet [code [facility] = 797241] Encounters Start End Encounter Admission Attending Care Care Encounter Source Date/Time Date/Time Type Type Clinicians Facility Department ID 2019-04-16 Inpatient U [facility] MED [id number] [facility] W 20:17:00 2019-04-16 2019-04-19 Outpatient Mikey Veliz [facility] [id number] 20:17:00 15:15:00 65 Results Test Description Test Time Test Comments Results Result Comments Source Basic Metabolic Panel 2020-05-19 05:31:00 Test Item Value Reference Range Interpretation Comme nts Sodium (test code = 137 meq/L 323-933 8998-2) Potassium (test code = 3.6 meq/L 3.5-5.1 2823-3) Chloride (test code = 99 meq/L 98-107 2075-0) CO2 (test code = 8-9) 26 meq/L 22-29 BUN (test code = 3094-0) 34 mg/dL 7-21 H Creatinine (test code = 1.23 mg/dL 0.57-1.25 2160-0) Glucose (test code = 118 mg/dL 70-105 H 2345-7) Calcium (test code = 9.0 mg/dL 8.4-10.2 49864-8) EGFR (test code = 03172-0) 58 mL/min/1.73 sq m ESTIMATED GFR IS NOT ACCURATE CREATININE DEE KALEY IN PREDICTING GLOMERULAR FILT RATION RATE. ESTIMATED GFR IS NOT APPLICAB LE FOR DIALYSIS PATIEN TS. SOREN (test code = SOREN) Sheep Farmer ID - MARYSOL L Lab Interpretation (test Abnormal code = 56179-4) [facility] [id number] 05:31:00 Test Item Value Reference Range Interpretation Comments SODIUM (BEAKER) 137 meq/L 136-145 (test code = 381) POTASSIUM (BEAKER) 3.6 meq/L 3.5-5.1 (test code = 379) CHLORIDE (BEAKER) 99 meq/L 98-107 (test code = 382) CO2 (BEAKER) (test 26 meq/L 22-29 code = 355) BLOOD UREA NITROGEN 34 mg/dL 7-21 H (BEAKER) (test code = 354) CREATININE (BEAKER) 1.23 mg/dL 0.57-1.25 (test code = 358) GLUCOSE RANDOM 118 mg/dL 70-105 H (BEAKER) (test code = 652) CALCIUM (BEAKER) 9.0 mg/dL 8.4-10.2 (test code = 697) EGFR (BEAKER) (test 58 mL/min/1.73 ESTIMA AARON GFR IS code = 1092) sq m NOT ACCURATE CREATININE CLEARANCE IN PREDICTING GLOMERULAR FILTRATION RATE . ESTIMATED GFR I S NOT APPLICABLE FOR DIALYSIS PATIEN TS. Sheep Farmer ID - MARYSOL LCBC with platelet count + automated [id number] 09:11:00 Test Item Value Reference Range Interpretation Comments WBC (test code = 6690-2) 9.2 3.5- 10.5 K/L RBC (test code = 789-8) 3.69 4.63- 6.08 M/L L MCHC (test code = 786-4) 33.7 32.3- 36.5 GM/DL L Hematocrit (test code = 4544-3) 35.9 % 40.1-51 L MCV (test code = 787-2) 97.3 fL 79-92.2 H MCH (test code = 785-6) 32.8 pg 25.7-32.2 H RDW (test code = 788-0) 15.0 % 11.6-14.4 H Platelets (test code = 777-3) 458 150- 450 K/CU MM H MPV (test code = 48510-2) 9.8 fL 9.4-12.4 nRBC (test code = 413) 0 0- 0 /100 WBC % Neutros (test code = 429) 76 % % Lymphs (test code = 430) 6 % % Monos (test code = 431) 7 % % Eos (test code = 432) 9 % % Baso (test code = 437) 1 % # Neutros (test code = 670) 7.00 1.78- 5.38 K/L H # Lymphs (test code = 414) 0.52 1.32- 3.57 K/L L # Monos (test code = 415) 0.67 0.30- 0.82 K/L # Eos (test code = 416) 0.80 0.04- 0.54 K/L H # Baso (test code = 417) 0.11 0.01- 0.08 K/L H Immature Granulocytes-Relative 1 % 0-1 (test code = 2801) Lab Interpretation (test code = Abnormal 01734-3) [facility] W/PLT COUNT & AUTO [id number] 09:11:00 Test Item Value Reference Range Interpretation Comments WHITE BLOOD CELL COUNT (BEAKER) 9.2 K/ L 3.5-10.5 (test code = 775) RED BLOOD CELL COUNT (BEAKER) 3.69 M/ L 4.63-6.08 L (test code = 761) HEMOGLOBIN (BEAKER) (test code = 12.1 GM/DL 13.7-17.5 L 410) HEMATOCRIT (BEAKER) (test code = 35.9 % 40.1-51.0 L 411) MEAN CORPUSCULAR VOLUME (BEAKER) 97.3 fL 79.0-92.2 H (test code = 753) MEAN CORPUSCULAR HEMOGLOBIN 32.8 pg 25.7-32.2 H (BEAKER) (test code = 751) MEAN CORPUSCULAR HEMOGLOBIN CONC 33.7 GM/DL 32.3-36.5 (BEAKER) (test code = 752) RED CELL DISTRIBUTION WIDTH 15.0 % 11.6-14.4 H (BEAKER) (test code = 412) PLATELET COUNT (BEAKER) (test 458 K/CU MM 150-450 H code = 756) MEAN PLATELET VOLUME (BEAKER) 9.8 fL 9.4-12.4 (test code = 754) NUCLEATED RED BLOOD CELLS 0 /100 WBC 0-0 (BEAKER) (test code = 413) NEUTROPHILS RELATIVE PERCENT 76 % (BEAKER) (test code = 429) LYMPHOCYTES RELATIVE PERCENT 6 % (BEAKER) (test code = 430) MONOCYTES RELATIVE PERCENT 7 % (BEAKER) (test code = 431) EOSINOPHILS RELATIVE PERCENT 9 % (BEAKER) (test code = 432) BASOPHILS RELATIVE PERCENT 1 % (BEAKER) (test code = 437) NEUTROPHILS ABSOLUTE COUNT 7.00 K/ L 1.78-5.38 H (BEAKER) (test code = 670) LYMPHOCYTES ABSOLUTE COUNT 0.52 K/ L 1.32-3.57 L (BEAKER) (test code = 414) MONOCYTES ABSOLUTE COUNT (BEAKER) 0.67 K/ L 0.30-0.82 (test code = 415) EOSINOPHILS ABSOLUTE COUNT 0.80 K/ L 0.04-0.54 H (BEAKER) (test code = 416) BASOPHILS ABSOLUTE COUNT (BEAKER) 0.11 K/ L 0.01-0.08 H (test code = 417) IMMATURE GRANULOCYTES-RELATIVE 1 % 0-1 PERCENT (BEAKER) (test code = 2801) SARS-CoV2/RT-PCR (Asymptomatic ONLY)2020-05-18 03:02:00 Test Item Value Reference Range Interpretation Comments SARS-COV2/RT-PCR Negative Not Detected, (test code = Negative, See 89955-0) external report for linked test SARS-COV-2 [facility] PERFORMING [facility] (test code = 94853-2) SOREN (test code = Negative result for this SOREN) test determines that SARS-CoV-2 RNA was not present in the [...] of the Act. Fact Sheet for Healthcare Providers:https://www.Ingeny idel.[employer]/sites/default/f cara/product/documents/F act_Sheet_HC_Providers_L ssz_MHDZ-JiD-1.pdf Fact Sheet for Healthcare Patients:https://www.[employer]com/sites/default/fi les/product/documents/Fa ct_Sheet_Patients_Lyra_S ARS-CoV-2.pdf Performing Laboratory:[facility] [place] [address] [facility] ([facility])2020-05-18 03:02:00 Test Item Value Reference Range Interpretation Comments SARS-COV2/RT-PCR (test Negative Not Detected, Negative, code = 0261917) See external report for linked test SARS-COV-2 PERFORMING LAB [facility] (test code = 3277467) Negative result for this test determines that SARS-CoV-2 RNA was not present in the specimen above the Limit of Detection (LOD). However, Negative results do not preclude SARS-CoV-2 infection and should not be used as the sole basis for treatment or patient management decisions. Negative results mustbe combined with clinical observations, patient history, and epidemiological information. A false negative result may occur if a specimen is improperly collected, transported or handled. A false negative result should be considered if patient's recent exposures or clinical presentation indicate that COVID-19 (SARS-CoV-2) is likely and diagnostic tests for other causes of illness are negative. Re-testing should be considered in cases of suspected false negatives.The limit of detection for this assay is 800 copies/mL.This SARS CoV-2 test is a real-time RT-PCR test intended for the qualitative detection of nucleic acid from SARS-CoV-2 in a nasopharyngeal swab specimen collected from individuals susp ected of COVID-19 by their healthcare provider.This test has not been Food and Drug [...] is revoked under Section 564(g) of the Act.Fact Sheet for Healthcare Providers:https://www.Knip[employer]/sites/default/files/product/documents/Fact_Shee f_QP_Ingiprjri_Wsfa_JLIC-PuB-7.pdfFact Sheet for Healthcare Patients:https://www.[employer]/sites/default/files/product/ documents/Aysi_Ozqis_Qdzedjih_Roim_HRUI-TeA-1.pdfPerforming Laboratory:[facility], [place] [address]JDHRP METABOLIC PANEL 2020-05-17 12:37:00 Test Item Value Reference Range Interpretation Comments SODIUM (BEAKER) 135 meq/L 136-145 L (test code = 381) POTASSIUM (BEAKER) 4.0 meq/L 3.5-5.1 (test code = 379) CHLORIDE (BEAKER) 97 meq/L 98-107 L (test code = 382) CO2 (BEAKER) (test 26 meq/L 22-29 code = 355) BLOOD UREA NITROGEN 31 mg/dL 7-21 H (BEAKER) (test code = 354) CREATININE (BEAKER) 1.37 mg/dL 0.57-1.25 H (test code = 358) GLUCOSE RANDOM 107 mg/dL 70-105 H (BEAKER) (test code = 652) CALCIUM (BEAKER) 9.0 mg/dL 8.4-10.2 (test code = 697) EGFR (BEAKER) (test 51 mL/min/1.73 ESTIMA AARON GFR IS code = 1092) sq m NOT ACCURATE CREATININE CLEARANCE IN PREDICTING GLOMERULAR FILTRATION RATE . ESTIMATED GFR I S NOT APPLICABLE FOR DIALYSIS PATIEN TS. Sheep Farmer ID - [id number] 12 [id number] 06:59:09Interface, External Ris In - 05/17/2020 6:59 AM CDTVentricular Rate 66 BPMAtrial Rate 66 BPMP-R Interval 160 msQRS Duration 94 msQ-T Interval 504 msQTC Calculation(Bazett) 528 msP [place] -14 degreesR [place] -43 degreesT [place] 141 degreesSinus rhythm with Premature supraventricular complexesLeft axis deviationT wave abnormality, consider anterolateral ischemiaProlonged QTAbnormal ECGNo previous ECGs availa bleConfirmed by MD CANDICE, ANDRZEJ Castillo ([id number]) on 05/17/2020 6:59:05 [facility] 07:36[facility]00 Test Item Value Reference Range Interpretation Comments Magnesium (test code = 2.2 mg/dL 1.6-2.6 52219-1) SOREN (test code = SOREN) Sheep Farmer ID - AAHAMID Lab Interpretation (test Normal code = 19274-7) [facility] 07:36[facility]00 Test Item Value Reference Range Interpretation Comments Phosphorus (test code = 3.2 mg/dL 2.3-4.7 2777-1) SOREN (test code = SOREN) Sheep Farmer ID - AAREECEID Lab Interpretation (test Normal code = 81178-0) [facility] [id number] 07:36:00 Test Item Value Reference Range Interpretation Comments SODIUM (BEAKER) 134 meq/L 136-145 L (test code = 381) POTASSIUM (BEAKER) 4.2 meq/L 3.5-5.1 (test code = 379) CHLORIDE (BEAKER) 96 meq/L 98-107 L (test code = 382) CO2 (BEAKER) (test 28 meq/L 22-29 code = 355) BLOOD UREA NITROGEN 29 mg/dL 7-21 H (BEAKER) (test code = 354) CREATININE (BEAKER) 1.26 mg/dL 0.57-1.25 H (test code = 358) GLUCOSE RANDOM 112 mg/dL 70-105 H (BEAKER) (test code = 652) CALCIUM (BEAKER) 9.3 mg/dL 8.4-10.2 (test code = 697) EGFR (BEAKER) (test 57 mL/min/1.73 ESTIMA AARON GFR IS code = 1092) sq m NOT ACCURATE CREATININE CLEARANCE IN PREDICTING GLOMERULAR FILTRATION RATE . ESTIMATED GFR I S NOT APPLICABLE FOR DIALYSIS PATIEN TS. Sheep Farmer ID - [id number] 07:36:00 Test Item Value Reference Range Interpretation Comments MAGNESIUM (BEAKER) (test code = 2.2 mg/dL 1.6-2.6 627) Sheep Farmer ID - [id number] 07:36:00 Test Item Value Reference Range Interpretation Comments PHOSPHORUS (BEAKER) (test code = 3.2 mg/dL 2.3-4.7 604) Sheep Farmer ID - AAHAMIDCBC W/PLT COUNT & AUTO [id number] 07:09:00 Test Item Value Reference Range Interpretation Comments WHITE BLOOD CELL COUNT (BEAKER) 11.5 K/ L 3.5-10.5 H (test code = 775) RED BLOOD CELL COUNT (BEAKER) 3.89 M/ L 4.63-6.08 L (test code = 761) HEMOGLOBIN (BEAKER) (test code = 12.7 GM/DL 13.7-17.5 L 410) HEMATOCRIT (BEAKER) (test code = 38.7 % 40.1-51.0 L 411) MEAN CORPUSCULAR VOLUME (BEAKER) 99.5 fL 79.0-92.2 H (test code = 753) MEAN CORPUSCULAR HEMOGLOBIN 32.6 pg 25.7-32.2 H (BEAKER) (test code = 751) MEAN CORPUSCULAR HEMOGLOBIN CONC 32.8 GM/DL 32.3-36.5 (BEAKER) (test code = 752) RED CELL DISTRIBUTION WIDTH 14.8 % 11.6-14.4 H (BEAKER) (test code = 412) PLATELET COUNT (BEAKER) (test 412 K/CU MM 150-450 code = 756) MEAN PLATELET VOLUME (BEAKER) 9.9 fL 9.4-12.4 (test code = 754) NUCLEATED RED BLOOD CELLS 0 /100 WBC 0-0 (BEAKER) (test code = 413) NEUTROPHILS RELATIVE PERCENT 76 % (BEAKER) (test code = 429) LYMPHOCYTES RELATIVE PERCENT 5 % (BEAKER) (test code = 430) MONOCYTES RELATIVE PERCENT 8 % (BEAKER) (test code = 431) EOSINOPHILS RELATIVE PERCENT 8 % (BEAKER) (test code = 432) BASOPHILS RELATIVE PERCENT 1 % (BEAKER) (test code = 437) NEUTROPHILS ABSOLUTE COUNT 8.75 K/ L 1.78-5.38 H (BEAKER) (test code = 670) LYMPHOCYTES ABSOLUTE COUNT 0.56 K/ L 1.32-3.57 L (BEAKER) (test code = 414) MONOCYTES ABSOLUTE COUNT (BEAKER) 0.96 K/ L 0.30-0.82 H (test code = 415) EOSINOPHILS ABSOLUTE COUNT 0.92 K/ L 0.04-0.54 H (BEAKER) (test code = 416) BASOPHILS ABSOLUTE COUNT (BEAKER) 0.11 K/ L 0.01-0.08 H (test code = 417) IMMATURE GRANULOCYTES-RELATIVE 1 % 0-1 PERCENT (BEAKER) (test code = 2809) BASIC METABOLIC [id number] 06:39:00 Test Item Value Reference Range Interpretation Comments SODIUM (BEAKER) 136 meq/L 136-145 (test code = 381) POTASSIUM (BEAKER) 3.5 meq/L 3.5-5.1 (test code = 379) CHLORIDE (BEAKER) 97 meq/L 98-107 L (test code = 382) CO2 (BEAKER) (test 26 meq/L 22-29 code = 355) BLOOD UREA NITROGEN 30 mg/dL 7-21 H (BEAKER) (test code = 354) CREATININE (BEAKER) 1.23 mg/dL 0.57-1.25 (test code = 358) GLUCOSE RANDOM 104 mg/dL 70-105 (BEAKER) (test code = 652) CALCIUM (BEAKER) 8.7 mg/dL 8.4-10.2 (test code = 697) EGFR (BEAKER) (test 58 mL/min/1.73 ESTIMA AARON GFR IS code = 1092) sq m NOT ACCURATE CREATININE CLEARANCE IN PREDICTING GLOMERULAR FILTRATION RATE . ESTIMATED GFR I S NOT APPLICABLE FOR DIALYSIS PATIEN TS. Sheep Farmer ID - [id number] 06:39:00 Test Item Value Reference Range Interpretation Comments MAGNESIUM (BEAKER) (test code = 2.2 mg/dL 1.6-2.6 627) Sheep Farmer ID - [id number] 06:39:00 Test Item Value Reference Range Interpretation Comments PHOSPHORUS (BEAKER) (test code = 3.5 mg/dL 2.3-4.7 604) Sheep Farmer ID - EDASICBC W/PLT COUNT & AUTO [id number] 06:19:00 Test Item Value Reference Range Interpretation Comments WHITE BLOOD CELL COUNT (BEAKER) 11.8 K/ L 3.5-10.5 H (test code = 775) RED BLOOD CELL COUNT (BEAKER) 3.97 M/ L 4.63-6.08 L (test code = 761) HEMOGLOBIN (BEAKER) (test code = 12.8 GM/DL 13.7-17.5 L 410) HEMATOCRIT (BEAKER) (test code = 39.7 % 40.1-51.0 L 411) MEAN CORPUSCULAR VOLUME (BEAKER) 100.0 fL 79.0-92.2 H (test code = 753) MEAN CORPUSCULAR HEMOGLOBIN 32.2 pg 25.7-32.2 (BEAKER) (test code = 751) MEAN CORPUSCULAR HEMOGLOBIN CONC 32.2 GM/DL 32.3-36.5 L (BEAKER) (test code = 752) RED CELL DISTRIBUTION WIDTH 14.9 % 11.6-14.4 H (BEAKER) (test code = 412) PLATELET COUNT (BEAKER) (test 338 K/CU MM 150-450 code = 756) MEAN PLATELET VOLUME (BEAKER) 9.7 fL 9.4-12.4 (test code = 754) NUCLEATED RED BLOOD CELLS 0 /100 WBC 0-0 (BEAKER) (test code = 413) NEUTROPHILS RELATIVE PERCENT 78 % (BEAKER) (test code = 429) LYMPHOCYTES RELATIVE PERCENT 4 % (BEAKER) (test code = 430) MONOCYTES RELATIVE PERCENT 8 % (BEAKER) (test code = 431) EOSINOPHILS RELATIVE PERCENT 8 % (BEAKER) (test code = 432) BASOPHILS RELATIVE PERCENT 1 % (BEAKER) (test code = 437) NEUTROPHILS ABSOLUTE COUNT 9.16 K/ L 1.78-5.38 H (BEAKER) (test code = 670) LYMPHOCYTES ABSOLUTE COUNT 0.49 K/ L 1.32-3.57 L (BEAKER) (test code = 414) MONOCYTES ABSOLUTE COUNT (BEAKER) 0.94 K/ L 0.30-0.82 H (test code = 415) EOSINOPHILS ABSOLUTE COUNT 0.91 K/ L 0.04-0.54 H (BEAKER) (test code = 416) BASOPHILS ABSOLUTE COUNT (BEAKER) 0.13 K/ L 0.01-0.08 H (test code = 417) IMMATURE GRANULOCYTES-RELATIVE 2 % 0-1 H PERCENT (BEAKER) (test code = 2801) CBC W/PLT COUNT & AUTO [id number] 05:55:00 Test Item Value Reference Range Interpretation Comments WHITE BLOOD CELL COUNT (BEAKER) 11.4 K/ L 3.5-10.5 H (test code = 775) RED BLOOD CELL COUNT (BEAKER) 3.71 M/ L 4.63-6.08 L (test code = 761) HEMOGLOBIN (BEAKER) (test code = 12.0 GM/DL 13.7-17.5 L 410) HEMATOCRIT (BEAKER) (test code = 36.3 % 40.1-51.0 L 411) MEAN CORPUSCULAR VOLUME (BEAKER) 97.8 fL 79.0-92.2 H (test code = 753) MEAN CORPUSCULAR HEMOGLOBIN 32.3 pg 25.7-32.2 H (BEAKER) (test code = 751) MEAN CORPUSCULAR HEMOGLOBIN CONC 33.1 GM/DL 32.3-36.5 (BEAKER) (test code = 752) RED CELL DISTRIBUTION WIDTH 15.0 % 11.6-14.4 H (BEAKER) (test code = 412) PLATELET COUNT (BEAKER) (test 323 K/CU MM 150-450 code = 756) MEAN PLATELET VOLUME (BEAKER) 9.5 fL 9.4-12.4 (test code = 754) NUCLEATED RED BLOOD CELLS 0 /100 WBC 0-0 (BEAKER) (test code = 413) NEUTROPHILS RELATIVE PERCENT 79 % (BEAKER) (test code = 429) LYMPHOCYTES RELATIVE PERCENT 3 % (BEAKER) (test code = 430) MONOCYTES RELATIVE PERCENT 8 % (BEAKER) (test code = 431) EOSINOPHILS RELATIVE PERCENT 8 % (BEAKER) (test code = 432) BASOPHILS RELATIVE PERCENT 1 % (BEAKER) (test code = 437) NEUTROPHILS ABSOLUTE COUNT 9.07 K/ L 1.78-5.38 H (BEAKER) (test code = 670) LYMPHOCYTES ABSOLUTE COUNT 0.31 K/ L 1.32-3.57 L (BEAKER) (test code = 414) MONOCYTES ABSOLUTE COUNT (BEAKER) 0.90 K/ L 0.30-0.82 H (test code = 415) EOSINOPHILS ABSOLUTE COUNT 0.94 K/ L 0.04-0.54 H (BEAKER) (test code = 416) BASOPHILS ABSOLUTE COUNT (BEAKER) 0.06 K/ L 0.01-0.08 (test code = 417) IMMATURE GRANULOCYTES-RELATIVE 1 % 0-1 PERCENT (BEAKER) (test code = 2801) BASIC METABOLIC [id number] 05:46:00 Test Item Value Reference Range Interpretation Comments SODIUM (BEAKER) 136 meq/L 136-145 (test code = 381) POTASSIUM (BEAKER) 3.8 meq/L 3.5-5.1 (test code = 379) CHLORIDE (BEAKER) 95 meq/L 98-107 L (test code = 382) CO2 (BEAKER) (test 27 meq/L 22-29 code = 355) BLOOD UREA NITROGEN 26 mg/dL 7-21 H (BEAKER) (test code = 354) CREATININE (BEAKER) 1.18 mg/dL 0.57-1.25 (test code = 358) GLUCOSE RANDOM 123 mg/dL 70-105 H (BEAKER) (test code = 652) CALCIUM (BEAKER) 8.7 mg/dL 8.4-10.2 (test code = 697) EGFR (BEAKER) (test 61 mL/min/1.73 ESTIMA AARON GFR IS code = 1092) sq m NOT ACCURATE CREATININE CLEARANCE IN PREDICTING GLOMERULAR FILTRATION RATE . ESTIMATED GFR I S NOT APPLICABLE FOR DIALYSIS PATIEN TS. Sheep Farmer ID - [id number] 05:46:00 Test Item Value Reference Range Interpretation Comments MAGNESIUM (BEAKER) (test code = 2.2 mg/dL 1.6-2.6 627) Sheep Farmer ID - [id number] 05:46:00 Test Item Value Reference Range Interpretation Comments PHOSPHORUS (BEAKER) (test code = 3.8 mg/dL 2.3-4.7 604) Sheep Farmer ID - [id number] 05:17:00 Test Item Value Reference Range Interpretation Comments PTT (test code = 36303-1) 42.0 22.5- 36.0 seconds H Lab Interpretation (test code = Abnormal 08986-7) [facility] Test Item Value Reference Range Interpretation Comments PARTIAL THROMBOPLASTIN TIME 42.0 seconds 22.5-36.0 H (BEAKER) (test code = 760) RAD, CHEST, 1 VIEW, NON [id number] 04:33:00Reason for exam:->RESPIRATORY INSUFFICIENCYShould this be performed at the bedside?->Yes [facility] : 1950 Sex: MFINAL REPORT CLINICAL INDICATION: Respiratory insufficiency Comparison: 05/12/2020 The cardiomediastinal contours are stable. The lung volumes remain low. There is worsening central vascular prominence and perihilar interstitial and patchy airspace opacity, suggesting worsening pulmonary edema. Pneumonitis should be excluded clinically. There is no pneumothorax or large pleural effusion. Signed: Julio Joyceeport Verified Date/Time: 05/13/2020 04:33:54 XR chest 1 view portable / [id number] 04:33:00Interface, External Ris In - 05/13/2020 4:36 AM CDTFINAL REPORT CLINICAL INDICATION: Respiratory insufficiency Comparison: 05/12/2020 The cardiomediastinal contours are stable.The lung volumes remain low. There is worsening central vascular prominence and perihilar interstitial and patchy airspace opacity, suggesting worsening pulmonary edema. Pneumonitis should be excluded clinically. There is no pneumothorax or large pleural effusion. Signed: Julio Joyce MDReport Verified Date/Time: 05/13/2020 04:33:54 04:33 [facility] Test Item Value Reference Range Interpretation Comments Procalcitonin (test code = 0.09 ng/mL <0.05 H 09639-5) SOREN (test code = SOREN) SEPSIS RISK (ng/mL)Low: 0.05-0.50Intermedi ate: 0.51-2.00High: >=2.01 Lab Interpretation (test Abnormal code = 55025-3) [facility] 04:13[facility]00 Test Item Value Reference Range Interpretation Comments PROCALCITONIN (BEAKER) (test code 0.09 ng/mL <0.05 H = 3036) SEPSIS RISK (ng/mL)Low: 0.05-0.50Intermediate: 0.51-2.00High: >=[id number] 04:07:00 Test Item Value Reference Range Interpretation Comments PARTIAL THROMBOPLASTIN TIME 45.0 seconds 22.5-36.0 H (DARBY) (test code = 760) Comprehensive metabolic [id number] 03:57:00 Test Item Value Reference Range Interpretation Comments Protein, Total (test 7.5 6.0- 8.3 gm/dL Speci men slightly code = 2885-2) hemolyzed Albumin (test code = 3.9 g/dL 3.5-5 Specime n slightly 81550-6) hemolyzed Alkaline Phosphatase 130 U/L 40-150 (test code = 6768-6) Total Bilirubin (test 1.0 mg/dL 0.2-1.2 Specim en slightly code = 1975-2) hemolyzed Sodium (test code = 134 meq/L 136-145 L 2951-2) Potassium (test code = 4.0 meq/L 3.5-5.1 Speci men slightly 2823-3) hemolyzed Chloride (test code = 95 meq/L 98-107 L 2075-0) CO2 (test code = 25 meq/L 22-29 8-9) BUN (test code = 26 mg/dL 7-21 H 3094-0) Creatinine (test code 1.23 mg/dL 0.57-1.25 Specim en slightly = 2160-0) hemolyzed Glucose (test code = 126 mg/dL 70-105 H 2345-7) Calcium (test code = 9.4 mg/dL 8.4-10.2 74402-1) AST (test code = 26 U/L 5-34 Specimen sl ightly 1920-8) hemolyzed ALT (test code = 31 U/L 6-55 Specimen sl ightly 1742-6) hemolyzed EGFR (test code = 58 mL/min/1.73 [place] [address]-6) NOT ACCURATE CREATININE CLEARANCE IN PREDICTING GLOMERULAR FILTRATION RATE . ESTIMATED GFR I S NOT APPLICABLE FOR DIALYSIS PATIENTS. SOREN (test code = SOREN) Sheep Farmer ID - DB Lab Interpretation Abnormal (test code = 45330-5) [facility] Test Item Value Reference Range Interpretation Comments MAGNESIUM (BEAKER) 2.3 mg/dL 1.6-2.6 Specimen slightly (test code = 627) hemolyzed Sheep Farmer ID - [id number] 03:57:00 Test Item Value Reference Range Interpretation Comments PHOSPHORUS (BEAKER) 4.3 mg/dL 2.3-4.7 Specimen slightly (test code = 604) hemolyzed Sheep Farmer ID - DBCOMPREHENSIVE METABOLIC [id number] 03:57:00 Test Item Value Reference Range Interpretation Comments TOTAL PROTEIN 7.5 gm/dL 6.0-8.3 Specimen sligh tly (BEAKER) (test code = hemoly zed 770) ALBUMIN (BEAKER) 3.9 g/dL 3.5-5.0 Specimen sl ightly (test code = 1145) hemolyzed ALKALINE PHOSPHATASE 130 U/L 40-150 (BEAKER) (test code = 346) BILIRUBIN TOTAL 1.0 mg/dL 0.2-1.2 Specimen sli ghtly (BEAKER) (test code = hemoly zed 377) SODIUM (BEAKER) (test 134 meq/L 136-145 L code = 381) POTASSIUM (BEAKER) 4.0 meq/L 3.5-5.1 Specimen slightly (test code = 379) hemolyzed CHLORIDE (BEAKER) 95 meq/L 98-107 L (test code = 382) CO2 (BEAKER) (test 25 meq/L 22-29 code = 355) BLOOD UREA NITROGEN 26 mg/dL 7-21 H (BEAKER) (test code = 354) CREATININE (BEAKER) 1.23 mg/dL 0.57-1.25 Specimen slightly (test code = 358) hemolyzed GLUCOSE RANDOM 126 mg/dL 70-105 H (BEAKER) (test code = 652) CALCIUM (BEAKER) 9.4 mg/dL 8.4-10.2 (test code = 697) AST (SGOT) (BEAKER) 26 U/L 5-34 Specimen slightly (test code = 353) hemolyzed ALT (SGPT) (BEAKER) 31 U/L 6-55 Specimen slightly (test code = 347) hemolyzed EGFR (BEAKER) (test 58 mL/min/1.73 ESTIMA AARON GFR IS code = 1092) sq m NOT ACCURATE CREATININE CLEARANCE IN PREDICTING GLOMERULAR FILTRATION RATE . ESTIMATED GFR I S NOT APPLICABLE FOR DIALYSIS PATIEN TS. Sheep Farmer ID - DBCalcium, [id number] 03:54:00 Test Item Value Reference Range Interpretation Comments Calcium, Ion (test code = 1993-3) 1.11 mmol/L 1.12-1.27 L pH, Blood (test code = 72146-8) 7.39 Lab Interpretation (test code = Abnormal 19299-8) [facility], [id number] 03:54:00 Test Item Value Reference Range Interpretation Comments CALCIUM IONIZED (BEAKER) (test 1.11 mmol/L 1.12-1.27 L code = 698) PH, BLOOD (BEAKER) (test code = 7.39 1810) Lactic acid, [id number] 03:44:00 Test Item Value Reference Range Interpretation Comments Lactate, Venous (test 1.53 mmol/L 0.5-2.2 Specim en code = 2872) slightly hemolyzed SOREN (test code = SOREN) Sheep Farmer ID - DB Lab Interpretation Normal (test code = 24477-7) [facility], [id number] 03:44:00 Test Item Value Reference Range Interpretation Comments LACTATE BLOOD VENOUS 1.53 mmol/L 0.50-2.20 Specime n slightly (2) (BEAKER) (test hemolyzed code = 2872) Sheep Farmer ID - DBCBC W/PLT COUNT & AUTO [id number] 03:31:00 Test Item Value Reference Range Interpretation Comments WHITE BLOOD CELL COUNT (BEAKER) 12.7 K/ L 3.5-10.5 H (test code = 775) RED BLOOD CELL COUNT (BEAKER) 4.37 M/ L 4.63-6.08 L (test code = 761) HEMOGLOBIN (BEAKER) (test code = 14.1 GM/DL 13.7-17.5 410) HEMATOCRIT (BEAKER) (test code = 42.8 % 40.1-51.0 411) MEAN CORPUSCULAR VOLUME (BEAKER) 97.9 fL 79.0-92.2 H (test code = 753) MEAN CORPUSCULAR HEMOGLOBIN 32.3 pg 25.7-32.2 H (BEAKER) (test code = 751) MEAN CORPUSCULAR HEMOGLOBIN CONC 32.9 GM/DL 32.3-36.5 (BEAKER) (test code = 752) RED CELL DISTRIBUTION WIDTH 15.2 % 11.6-14.4 H (BEAKER) (test code = 412) PLATELET COUNT (BEAKER) (test 310 K/CU MM 150-450 code = 756) MEAN PLATELET VOLUME (BEAKER) 9.7 fL 9.4-12.4 (test code = 754) NUCLEATED RED BLOOD CELLS 0 /100 WBC 0-0 (BEAKER) (test code = 413) NEUTROPHILS RELATIVE PERCENT 83 % (BEAKER) (test code = 429) LYMPHOCYTES RELATIVE PERCENT 3 % (BEAKER) (test code = 430) MONOCYTES RELATIVE PERCENT 7 % (BEAKER) (test code = 431) EOSINOPHILS RELATIVE PERCENT 5 % (BEAKER) (test code = 432) BASOPHILS RELATIVE PERCENT 1 % (BEAKER) (test code = 437) NEUTROPHILS ABSOLUTE COUNT 10.57 K/ L 1.78-5.38 H (BEAKER) (test code = 670) LYMPHOCYTES ABSOLUTE COUNT 0.33 K/ L 1.32-3.57 L (BEAKER) (test code = 414) MONOCYTES ABSOLUTE COUNT (BEAKER) 0.89 K/ L 0.30-0.82 H (test code = 415) EOSINOPHILS ABSOLUTE COUNT 0.68 K/ L 0.04-0.54 H (BEAKER) (test code = 416) BASOPHILS ABSOLUTE COUNT (BEAKER) 0.06 K/ L 0.01-0.08 (test code = 417) IMMATURE GRANULOCYTES-RELATIVE 2 % 0-1 H PERCENT (BEAKER) (test code = 2801) [id number] 20:29:00 Test Item Value Reference Range Interpretation Comments PARTIAL THROMBOPLASTIN TIME 45.9 seconds 22.5-36.0 H (BEAKER) (test code = 760) [id number] 13:21:00 Test Item Value Reference Range Interpretation Comments PARTIAL THROMBOPLASTIN TIME 41.6 seconds 22.5-36.0 H (BEAKER) (test code = 760) Prior to initiating heparinBASIC METABOLIC [id number] 13:21:00 Test Item Value Reference Range Interpretation Comments SODIUM (BEAKER) 134 meq/L 136-145 L (test code = 381) POTASSIUM (BEAKER) 3.9 meq/L 3.5-5.1 (test code = 379) CHLORIDE (BEAKER) 95 meq/L 98-107 L (test code = 382) CO2 (BEAKER) (test 25 meq/L 22-29 code = 355) BLOOD UREA NITROGEN 24 mg/dL 7-21 H (BEAKER) (test code = 354) CREATININE (BEAKER) 1.20 mg/dL 0.57-1.25 (test code = 358) GLUCOSE RANDOM 152 mg/dL 70-105 H (BEAKER) (test code = 652) CALCIUM (BEAKER) 9.1 mg/dL 8.4-10.2 (test code = 697) EGFR (BEAKER) (test 60 mL/min/1.73 ESTIMA AARON GFR IS code = 1092) sq m NOT ACCURATE CREATININE CLEARANCE IN PREDICTING GLOMERULAR FILTRATION RATE . ESTIMATED GFR I S NOT APPLICABLE FOR DIALYSIS PATIEN TS. Sheep Farmer ID - [id number] 13:21:00 Test Item Value Reference Range Interpretation Comments MAGNESIUM (BEAKER) (test code = 2.4 mg/dL 1.6-2.6 627) Sheep Farmer ID - DBPlatelet [id number] 13:02:00 Test Item Value Reference Range Interpretation Comments Platelets (test code = 273 150- 450 K/CU MM 777-3) SOREN (test code = SOREN) Sheep Farmer ID - [id number] Lab Interpretation (test Normal code = 50870-7) [facility] [id number] 13:02:00 Test Item Value Reference Range Interpretation Comments PLATELET COUNT (BEAKER) (test 273 K/CU MM 150-450 code = 756) Sheep Farmer ID - [id number] 04:16:00 Test Item Value Reference Range Interpretation Comments MAGNESIUM (BEAKER) 2.2 mg/dL 1.6-2.6 Specimen slightly (test code = 627) hemolyzed Sheep Farmer ID - [id number] 04:16:00 Test Item Value Reference Range Interpretation Comments PHOSPHORUS (BEAKER) 4.1 mg/dL 2.3-4.7 Specimen slightly (test code = 604) hemolyzed Sheep Farmer ID - EDASICOMPREHENSIVE METABOLIC [id number] 04:16:00 Test Item Value Reference Range Interpretation Comments TOTAL PROTEIN 7.2 gm/dL 6.0-8.3 Specimen sligh tly (BEAKER) (test code = hemoly zed 770) ALBUMIN (BEAKER) 3.7 g/dL 3.5-5.0 Specimen sl ightly (test code = 1145) hemolyzed ALKALINE PHOSPHATASE 111 U/L 40-150 (BEAKER) (test code = 346) BILIRUBIN TOTAL 1.0 mg/dL 0.2-1.2 Specimen sli ghtly (BEAKER) (test code = hemoly zed 377) SODIUM (BEAKER) (test 135 meq/L 136-145 L code = 381) POTASSIUM (BEAKER) 3.9 meq/L 3.5-5.1 Specimen slightly (test code = 379) hemolyzed CHLORIDE (BEAKER) 97 meq/L 98-107 L (test code = 382) CO2 (BEAKER) (test 24 meq/L 22-29 code = 355) BLOOD UREA NITROGEN 21 mg/dL 7-21 (BEAKER) (test code = 354) CREATININE (BEAKER) 1.00 mg/dL 0.57-1.25 Specimen slightly (test code = 358) hemolyzed GLUCOSE RANDOM 116 mg/dL 70-105 H (BEAKER) (test code = 652) CALCIUM (BEAKER) 8.7 mg/dL 8.4-10.2 (test code = 697) AST (SGOT) (BEAKER) 21 U/L 5-34 Specimen slightly (test code = 353) hemolyzed ALT (SGPT) (BEAKER) 28 U/L 6-55 Specimen slightly (test code = 347) hemolyzed EGFR (BEAKER) (test 74 mL/min/1.73 ESTIMA AARON GFR IS code = 1092) sq m NOT ACCURATE CREATININE CLEARANCE IN PREDICTING GLOMERULAR FILTRATION RATE . ESTIMATED GFR I S NOT APPLICABLE FOR DIALYSIS PATIEN TS. Sheep Farmer ID - [id number] 04:09:00 Test Item Value Reference Range Interpretation Comments PARTIAL THROMBOPLASTIN TIME 43.2 seconds 22.5-36.0 H (BEAKER) (test code = 760) CBC W/PLT COUNT & AUTO [id number] 04:06:00 Test Item Value Reference Range Interpretation Comments WHITE BLOOD CELL COUNT (BEAKER) 11.8 K/ L 3.5-10.5 H (test code = 775) RED BLOOD CELL COUNT (BEAKER) 4.02 M/ L 4.63-6.08 L (test code = 761) HEMOGLOBIN (BEAKER) (test code = 13.1 GM/DL 13.7-17.5 L 410) HEMATOCRIT (BEAKER) (test code = 39.0 % 40.1-51.0 L 411) MEAN CORPUSCULAR VOLUME (BEAKER) 97.0 fL 79.0-92.2 H (test code = 753) MEAN CORPUSCULAR HEMOGLOBIN 32.6 pg 25.7-32.2 H (BEAKER) (test code = 751) MEAN CORPUSCULAR HEMOGLOBIN CONC 33.6 GM/DL 32.3-36.5 (BEAKER) (test code = 752) RED CELL DISTRIBUTION WIDTH 15.3 % 11.6-14.4 H (BEAKER) (test code = 412) PLATELET COUNT (BEAKER) (test 262 K/CU MM 150-450 code = 756) MEAN PLATELET VOLUME (BEAKER) 9.8 fL 9.4-12.4 (test code = 754) NUCLEATED RED BLOOD CELLS 0 /100 WBC 0-0 (BEAKER) (test code = 413) NEUTROPHILS RELATIVE PERCENT 83 % (BEAKER) (test code = 429) LYMPHOCYTES RELATIVE PERCENT 3 % (BEAKER) (test code = 430) MONOCYTES RELATIVE PERCENT 8 % (BEAKER) (test code = 431) EOSINOPHILS RELATIVE PERCENT 5 % (BEAKER) (test code = 432) BASOPHILS RELATIVE PERCENT 0 % (BEAKER) (test code = 437) NEUTROPHILS ABSOLUTE COUNT 9.77 K/ L 1.78-5.38 H (BEAKER) (test code = 670) LYMPHOCYTES ABSOLUTE COUNT 0.32 K/ L 1.32-3.57 L (BEAKER) (test code = 414) MONOCYTES ABSOLUTE COUNT (BEAKER) 0.89 K/ L 0.30-0.82 H (test code = 415) EOSINOPHILS ABSOLUTE COUNT 0.60 K/ L 0.04-0.54 H (BEAKER) (test code = 416) BASOPHILS ABSOLUTE COUNT (BEAKER) 0.04 K/ L 0.01-0.08 (test code = 417) IMMATURE GRANULOCYTES-RELATIVE 2 % 0-1 H PERCENT (BEAKER) (test code = 2801) RAD, CHEST, 1 VIEW, NON [id number] 04:06:00Reason for exam:->iabp positionShould this be performed at the bedside?->Yes [facility] : 1950 Sex: MFINAL REPORT CLINICAL INDICATION: IABP position Comparison: 05/11/2020 The radiopaque tip of an IABP is no longer evident, possibly secondary to interval removal. Please correlate. Repeat imaging can be obtained, as indicated. The cardiomediastinal contours are stable. The lung volumes are low. Retrocardiac opacity may reflect atelectasis but pneumonitis should be excluded clinically. There is no pneumothorax. Signed: Julio Joyce [facility] Verified Date/Time: 05/12/2020 04:06:22 Troponin [id number] 06:39:00 Test Item Value Reference Range Interpretation Comments Troponin I (test code = 16.19 ng/mL 0-0.03 27014-6) SOREN (test code = SOREN) Troponin I (TnI) levels must be interpreted in the context of the presenting symptoms and the clinical findings. Elevated TnI levels indicate myocardial damage, but are not specific for ischemic heart disease. Elevated TnI levels are seen in patients with other cardiac conditions (including myocarditis and congestive heart failure), and slight TnI elevations occur in patients with other conditions, including sepsis, renal failure, acidosis, acute neurological disease, and persistent tachyarrhythmia.Opera tor ID - EDASI Lab Interpretation (test Abnormal code = 36233-7) [facility]KAL[facility] [id number] 06:39:00 Test Item Value Reference Range Interpretation Comments TROPONIN I (BEAKER) (test code = 16.19 ng/mL 0.00-0.03 397) Troponin I (TnI) levels must be interpreted in the context of the presenting symptoms and the clinical findings. Elevated TnI levels indicate myocardial damage, but are not specific for ischemic heart disease. Elevated TnI levels are seen in patients with other cardiac conditions (including myocarditis and congestive heart failure), and slight TnI elevations occur in patients with other conditions, including sepsis, renal failure, acidosis, acute neurological disease, and persistent tachyarrhythmia.Sheep Farmer ID - [id number] 06:36:00 Test Item Value Reference Range Interpretation Comments MAGNESIUM (BEAKER) 2.4 mg/dL 1.6-2.6 Specimen slightly (test code = 627) hemolyzed Sheep Farmer ID - [id number] 06:36:00 Test Item Value Reference Range Interpretation Comments PHOSPHORUS (BEAKER) 4.1 mg/dL 2.3-4.7 Specimen slightly (test code = 604) hemolyzed Sheep Farmer ID - EDASICOMPREHENSIVE METABOLIC [id number] 06:36:00 Test Item Value Reference Range Interpretation Comments TOTAL PROTEIN 6.7 gm/dL 6.0-8.3 Specimen sligh tly (BEAKER) (test code = hemoly zed 770) ALBUMIN (BEAKER) 3.6 g/dL 3.5-5.0 Specimen sl ightly (test code = 1145) hemolyzed ALKALINE PHOSPHATASE 95 U/L 40-150 (BEAKER) (test code = 346) BILIRUBIN TOTAL 1.0 mg/dL 0.2-1.2 Specimen sli ghtly (BEAKER) (test code = hemoly zed 377) SODIUM (BEAKER) (test 133 meq/L 136-145 L code = 381) POTASSIUM (BEAKER) 4.1 meq/L 3.5-5.1 Specimen slightly (test code = 379) hemolyzed CHLORIDE (BEAKER) 97 meq/L 98-107 L (test code = 382) CO2 (BEAKER) (test 25 meq/L 22-29 code = 355) BLOOD UREA NITROGEN 17 mg/dL 7-21 (BEAKER) (test code = 354) CREATININE (BEAKER) 0.90 mg/dL 0.57-1.25 Specimen slightly (test code = 358) hemolyzed GLUCOSE RANDOM 121 mg/dL 70-105 H (BEAKER) (test code = 652) CALCIUM (BEAKER) 8.3 mg/dL 8.4-10.2 L (test code = 697) AST (SGOT) (BEAKER) 22 U/L 5-34 Specimen slightly (test code = 353) hemolyzed ALT (SGPT) (BEAKER) 28 U/L 6-55 Specimen slightly (test code = 347) hemolyzed EGFR (BEAKER) (test 83 mL/min/1.73 ESTIMA AARON GFR IS code = 1092) sq m NOT ACCURATE CREATININE CLEARANCE IN PREDICTING GLOMERULAR FILTRATION RATE . ESTIMATED GFR I S NOT APPLICABLE FOR DIALYSIS PATIEN TS. Sheep Farmer ID - [id number] 05:53:00 Test Item Value Reference Range Interpretation Comments PARTIAL THROMBOPLASTIN TIME 51.9 seconds 22.5-36.0 H (BEAKER) (test code = 760) LACTIC ACID, [id number] 05:52:00 Test Item Value Reference Range Interpretation Comments LACTATE BLOOD VENOUS 0.89 mmol/L 0.50-2.20 Specime n slightly (2) (BEAKER) (test hemolyzed code = 2872) Sheep Farmer ID - LACBC W/PLT COUNT & AUTO [id number] 05:44:00 Test Item Value Reference Range Interpretation Comments WHITE BLOOD CELL COUNT (BEAKER) 10.8 K/ L 3.5-10.5 H (test code = 775) RED BLOOD CELL COUNT (BEAKER) 3.67 M/ L 4.63-6.08 L (test code = 761) HEMOGLOBIN (BEAKER) (test code = 12.3 GM/DL 13.7-17.5 L 410) HEMATOCRIT (BEAKER) (test code = 35.6 % 40.1-51.0 L 411) MEAN CORPUSCULAR VOLUME (BEAKER) 97.0 fL 79.0-92.2 H (test code = 753) MEAN CORPUSCULAR HEMOGLOBIN 33.5 pg 25.7-32.2 H (BEAKER) (test code = 751) MEAN CORPUSCULAR HEMOGLOBIN CONC 34.6 GM/DL 32.3-36.5 (BEAKER) (test code = 752) RED CELL DISTRIBUTION WIDTH 15.7 % 11.6-14.4 H (BEAKER) (test code = 412) PLATELET COUNT (BEAKER) (test 236 K/CU MM 150-450 code = 756) MEAN PLATELET VOLUME (BEAKER) 9.8 fL 9.4-12.4 (test code = 754) NUCLEATED RED BLOOD CELLS 0 /100 WBC 0-0 (BEAKER) (test code = 413) NEUTROPHILS RELATIVE PERCENT 83 % (BEAKER) (test code = 429) LYMPHOCYTES RELATIVE PERCENT 3 % (BEAKER) (test code = 430) MONOCYTES RELATIVE PERCENT 9 % (BEAKER) (test code = 431) EOSINOPHILS RELATIVE PERCENT 3 % (BEAKER) (test code = 432) BASOPHILS RELATIVE PERCENT 0 % (BEAKER) (test code = 437) NEUTROPHILS ABSOLUTE COUNT 8.99 K/ L 1.78-5.38 H (BEAKER) (test code = 670) LYMPHOCYTES ABSOLUTE COUNT 0.36 K/ L 1.32-3.57 L (BEAKER) (test code = 414) MONOCYTES ABSOLUTE COUNT (BEAKER) 0.93 K/ L 0.30-0.82 H (test code = 415) EOSINOPHILS ABSOLUTE COUNT 0.36 K/ L 0.04-0.54 (BEAKER) (test code = 416) BASOPHILS ABSOLUTE COUNT (BEAKER) 0.04 K/ L 0.01-0.08 (test code = 417) IMMATURE GRANULOCYTES-RELATIVE 1 % 0-1 PERCENT (BEAKER) (test code = 2801) RAD, CHEST, 1 VIEW, NON [id number] 04:29:00Reason for exam:->iabp positionShould this be performed at the bedside?->Yes [facility] : 1950 Sex: MFINAL REPORT CLINICAL INDICATION: IABP position Comparison: 05/10/2020 The radiopaque tip of an IABP is at the superior margin of the aortic arch. The cardiomediastinal contours are stable. Retrocardiac opacity in the lower lungs may reflect atelectasis but pneumonitis should be excluded clinically. There is no pneumothorax. Signed: [facility]io [facility]fre[facility] Verified Date/Time: 05/11/2020 04:29:19 TROPONIN [id number] 01:12:00 Test Item Value Reference Range Interpretation Comments TROPONIN I (BEAKER) (test code = 16.73 ng/mL 0.00-0.03 397) Troponin I (TnI) levels must be interpreted in the context of the presenting symptoms and the clinical findings. Elevated TnI levels indicate myocardial damage, but are not specific for ischemic heart disease. Elevated TnI levels are seen in patients with other cardiac conditions (including myocarditis and congestive heart failure), and slight TnI elevations occur in patients with other conditions, including sepsis, renal failure, acidosis, acute neurological disease, and persistent tachyarrhythmia.Sheep Farmer ID - [id number] 00:49:00 Test Item Value Reference Range Interpretation Comments Potassium (test code = 3.8 meq/L 3.5-5.1 2823-3) SOREN (test code = SOREN) Sheep Farmer ID - LA Lab Interpretation (test Normal code = 52051-6) [facility]:49[facility]00 Test Item Value Reference Range Interpretation Comments MAGNESIUM (BEAKER) (test code = 2.5 mg/dL 1.6-2.6 627) Sheep Farmer ID - [id number] 00:49:00 Test Item Value Reference Range Interpretation Comments POTASSIUM (BEAKER) (test code = 3.8 meq/L 3.5-5.1 379) Sheep Farmer ID - [id number] 00:24:00 Test Item Value Reference Range Interpretation Comments PARTIAL THROMBOPLASTIN TIME 67.7 seconds 22.5-36.0 H (BEAKER) (test code = 760) TROPONIN [id number] 19:02:00 Test Item Value Reference Range Interpretation Comments TROPONIN I (BEAKER) (test code = 17.69 ng/mL 0.00-0.03 HH 397) Troponin I (TnI) levels must be interpreted in the context of the presenting symptoms and the clinical findings. Elevated TnI levels indicate myocardial damage, but are not specific for ischemic heart disease. Elevated TnI levels are seen in patients with other cardiac conditions (including myocarditis and congestive heart failure), and slight TnI elevations occur in patients with other conditions, including sepsis, renal failure, acidosis, acute neurological disease, and persistent tachyarrhythmia.Sheep Farmer ID - [id number] 18:50:00 Test Item Value Reference Range Interpretation Comments MAGNESIUM (BEAKER) (test code = 1.8 mg/dL 1.6-2.6 627) Sheep Farmer ID - [id number] 18:50:00 Test Item Value Reference Range Interpretation Comments POTASSIUM (BEAKER) (test code = 3.8 meq/L 3.5-5.1 379) Sheep Farmer ID - BSSARS-COV2/RT-PCR ([facility])2020-05-10 18:26:00 Test Item Value Reference Range Interpretation Comments SARS-COV2/RT-PCR (test Negative Not Detected, Negative, code = 6939929) See external report for linked test SARS-COV-2 PERFORMING LAB [facility] (test code = 1887697) Negative result for this test determines that SARS-CoV-2 RNA was not present in the specimen above the Limit of Detection (LOD). However, Negative results do not preclude SARS-CoV-2 infection and should not be used as the sole basis for treatment or patient management decisions. Negative results mustbe combined with clinical observations, patient history, and epidemiological information. A false negative result may occur if a specimen is improperly collected, transported or handled. A false negative result should be considered if patient's recent exposures or clinical presentation indicate that COVID-19 (SARS-CoV-2) is likely and diagnostic tests for other causes of illness are negative. Re-testing should be considered in cases of suspected false negatives.The limit of detection for this assay is 800 copies/mL.This SARS CoV-2 test is a real-time RT-PCR test intended for the qualitative detection of nucleic acid from SARS-CoV-2 in a nasopharyngeal swab specimen collected from individuals susp ected of COVID-19 by their healthcare provider.This test has not been Food and Drug [...] is revoked under Section 564(g) of the Act.Fact Sheet for Healthcare Providers:https://www.[employer]/sites/default/files/product/documents/Fact_Shee a_VF_Vqmknsdgh_Edcf_AQRP-SsQ-7.pdfFact Sheet for Healthcare Patients:https://www.[employer]/sites/default/files/product/ documents/Shwh_Zfjcn_Ekqbdjit_Kutq_JIRY-ZyK-0.pdfPerforming Laboratory:[facility] [place], [place] [address]HDJMLXRK [id number] 12:29:00 Test Item Value Reference Range Interpretation Comments TROPONIN I (BEAKER) (test code = 17.29 ng/mL 0.00-0.03 [facility]) Troponin I (TnI) levels must be interpreted in the context of the presenting symptoms and the clinical findings. Elevated TnI levels indicate myocardial damage, but are not specific for ischemic heart disease. Elevated TnI levels are seen in patients with other cardiac conditions (including myocarditis and congestive heart failure), and slight TnI elevations occur in patients with other conditions, including sepsis, renal failure, acidosis, acute neurological disease, and persistent tachyarrhythmia.Sheep Farmer ID - [id number] 09:42:00 Test Item Value Reference Range Interpretation Comments PARTIAL THROMBOPLASTIN TIME 40.5 seconds 22.5-36.0 H (BEAKER) (test code = 760) BASIC METABOLIC [id number] 09:24:00 Test Item Value Reference Range Interpretation Comments SODIUM (BEAKER) 135 meq/L 136-145 L (test code = 381) POTASSIUM (BEAKER) 4.1 meq/L 3.5-5.1 Specimen slightly (test code = 379) hemolyzed CHLORIDE (BEAKER) 99 meq/L 98-107 (test code = 382) CO2 (BEAKER) (test 23 meq/L 22-29 code = 355) BLOOD UREA NITROGEN 15 mg/dL 7-21 (BEAKER) (test code = 354) CREATININE (BEAKER) 1.00 mg/dL 0.57-1.25 Specimen slightly (test code = 358) hemolyzed GLUCOSE RANDOM 131 mg/dL 70-105 H (BEAKER) (test code = 652) CALCIUM (BEAKER) 8.9 mg/dL 8.4-10.2 (test code = 697) EGFR (BEAKER) (test 74 mL/min/1.73 ESTIMA AARON GFR IS code = 1092) sq m NOT ACCURATE CREATININE CLEARANCE IN PREDICTING GLOMERULAR FILTRATION RATE . ESTIMATED GFR I S NOT APPLICABLE FOR DIALYSIS PATIEN TS. 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 Amount - 3 mlHeight: 74 inches Weight: 117.48 kg (259 lbs) BSA: 2.43 m^2 BMI: 33.25kg/m^2HR: 93 bpm BP: 140/92 mmHgSummary 1. Normal LV size. LV function is moderately reduced. LVEF is 35-39%. Wall motion abnormaliti es noted in the territory of the LAD 2. Diastology: Indeterminate 3. Normal RV size and function 4. No significant valvular heart disease 5. Unable to estimate PASP 6. No pericardial effusion PreviousStudy No prior studies available for comparison. Signature Findings Rhythm/BP Sinus tachycardia during the exam. Left Ventricle LV endocardium is adequately visualized with IV ultrasound enhancing agent. The left ventricle is chamber size (by vol index) is normal (male - LVED vol - 34-74 ml/m2). LV septal thickness is normal (0.6-1.1cm). LV posterior wall thickness is normal (0.6-1.1cm) . The following segment(s) appear akinetic: mid apical infero-septum, apical anterolateral, mid and apical anterior, apical inferior, mid and apical anteroseptum LVEF by Goins's method of disk assessment is moderatelyreduced (35-39%) . Diastology: Indeterminate Left Atrium LA size is normal (16-34 ml/m2) . Right Ventricle The right ventricular chamber size and systolic function are within normal limits. Right Atrium RA size is normal. Atrial Septum Normal interatrial septum by available views. Aortic Valve Normal AoVstructure. AoV area at rest by continuity equation is in the range of 4.9 cm2. Mitral Valve Mild mitral annular calcification. Normal MV function. Tricuspid Valve TV structure is normal. Unable to estimate peak systolic PA pressure; inadequate TR velocity signal. Pulmonic Valve Normal PV structure and function by limited views and Doppler. Pericardium Prominent epicardial fat pad noted. IVC/SVC/PA/PV/Pleural The estimatedRA pressure by IVC dynamics 5-10 mmHg . [facility] Left Atrium LA Area: [...] Peak A-Wave: 0.61 m/s E/A Ratio: 1.46 PeakGradient: 3.22 mmHg Deceleration Time: 150.5 msec MV Laurent. Peak: Aortic Valve Peak Velocity: 1.29 m/s Mean Velocity: 0.88 m/s Peak Gradient: 6.7 mmHg Mean Gradient: 3.57 mmHg AV Area (continuity): 4.89 cm^2 AV VTI: 19.65 cm AV DVI:0.73 LVOT Peak Velocity: 0.92 m/s Peak Gradient: 3.37 mmHg Mean Velocity: 0.61 m/s Mean Gradient: 1.74 mmHg LVOT Diameter: 2.93 cm LVOT VTI: 14.26 cm LVOT Area: 6.74 cm^2 LVOT SV:96.1 ml LVOT CO: 8.94 l/min LVOT CI: 3.68 l/min/m^2CSonoma Developmental CenterOPOSUNNY [id number] 08:21:00 Test Item Value Reference Range Interpretation Comments TROPONIN I (BEAKER) (test code = 21.32 ng/mL 0.00-0.03 HH 397) Troponin I (TnI) levels must be interpreted in the context of the presenting symptoms and the clinical findings. Elevated TnI levels indicate myocardial damage, but are not specific for ischemic heart disease. Elevated TnI levels are seen in patients with other cardiac conditions (including myocarditis and congestive heart failure), and slight TnI elevations occur in patients with other conditions, including sepsis, renal failure, acidosis, acute neurological disease, and persistent tachyarrhythmia.Sheep Farmer ID - [id number] 08:19:00 Test Item Value Reference Range Interpretation Comments Ferritin (test code = 286.82 ng/mL 5-275 H 2276-4) SOREN (test code = SOREN) Sheep Farmer ID - EDASI Lab Interpretation (test Abnormal code = 44927-8) [facility] and [id number] 08:19:00 Test Item Value Reference Range Interpretation Comments Vitamin B12 (test code = 373 pg/mL 167-677 2111-9) Folate (test code = 4.10 ng/mL >=7.00 L 2284-8) SOREN (test code = SOREN) Sheep Farmer ID - EDASI Lab Interpretation (test Abnormal code = 61063-9) [facility]IN2020-10-16 08:19:00 Test Item Value Reference Range Interpretation Comments FERRITIN (BEAKER) (test code = 286.82 ng/mL 5.00-275.00 H 361) Sheep Farmer ID - EDASIVITAMIN B12 AND [id number] 08:19:00 Test Item Value Reference Range Interpretation Comments VITAMIN B12 (BEAKER) (test code = 373 pg/mL 213-816 774) FOLATE (BEAKER) (test code = 362) 4.10 ng/mL >=7.00 L Sheep Farmer ID - EDASIIron, TIBC, % sat. (without ferritin)2020-05-10 06:46:00 Test Item Value Reference Range Interpretation Comments Iron (test code = 2498-4) 34.0 ug/dL 40-160 L TIBC (test code = 2500-7) 331 ug/dL 250-450 Iron % Saturation (test 10 % 20-55 L code = 2502-3) SOREN (test code = SOREN) Sheep Farmer ID - MARYSOL L Lab Interpretation (test Abnormal code = 95952-0) [facility], TIBC, % SAT. (WITHOUT FERRITIN)2020-05-10 06:46:00 Test Item Value Reference Range Interpretation Comments IRON (BEAKER) (test code = 547) 34.0 ug/dL 40.0-160.0 L TOTAL IRON BINDING CAPACITY 331 ug/dL 250-450 (BEAKER) (test code = 769) IRON % SATURATION (2) (BEAKER) 10 % 20-55 L (test code = 2590) Sheep Farmer ID - MARYSOL LRAD, CHEST, 1 VIEW, NON [id number] 05:37:00Reason for exam:->hypoxemia, IABP positionShould this be performed at the bedside?->Yes[facility] : 1950 Sex: MFINAL REPORT CLINICAL INDICATION: IABP position Comparison: 05/08/2020 The radiopaque tip of an IABP is located at the level of the aortic arch. The cardiomediastinal contours are stable. Central pulmonary vascular prominence and bilateral parenchymal opacities are suggestive of pulmonary edema. Pneumonitis should be excluded clinically. There is no pneumothorax. Signed: [facility] Verified Date/Time: 05/10/2020 05:37:42 B-type Natriuretic Factor (BNP)2020-05-10 05:11:00 Test Item Value Reference Range Interpretation Comments BNP (test code = 37941-3) 637 pg/mL 0-100 H SOREN (test code = SOREN) Sheep Farmer ID - MARYSOL L Lab Interpretation (test Abnormal code = 90824-9) [facility] NATRIURETIC FACTOR (BNP)2020-05-10 05:11:00 Test Item Value Reference Range Interpretation Comments B-TYPE NATRIURETIC PEPTIDE (BEAKER) 637 pg/mL 0-100 H (test code = 700) Sheep Farmer ID - MARYSOL [id number] 04:57:00 Test Item Value Reference Range Interpretation Comments PHOSPHORUS (BEAKER) 4.0 mg/dL 2.3-4.7 Specimen slightly (test code = 604) hemolyzed Sheep Farmer ID - MARYSOL [id number] 04:56:00 Test Item Value Reference Range Interpretation Comments MAGNESIUM (BEAKER) 2.1 mg/dL 1.6-2.6 Specimen slightly (test code = 627) hemolyzed Sheep Farmer ID - MARYSOL LLACTIC ACID, [id number] 04:45:00 Test Item Value Reference Range Interpretation Comments LACTATE BLOOD VENOUS 1.05 mmol/L 0.50-2.20 Specime n slightly (2) (BEAKER) (test hemolyzed code = 2872) Sheep Farmer ID - MARYSOL LCBC W/PLT COUNT & AUTO [id number] 04:40:00 Test Item Value Reference Range Interpretation Comments WHITE BLOOD CELL COUNT (BEAKER) 10.1 K/ L 3.5-10.5 (test code = 775) RED BLOOD CELL COUNT (BEAKER) 3.94 M/ L 4.63-6.08 L (test code = 761) HEMOGLOBIN (BEAKER) (test code = 12.5 GM/DL 13.7-17.5 L 410) HEMATOCRIT (BEAKER) (test code = 38.5 % 40.1-51.0 L 411) MEAN CORPUSCULAR VOLUME (BEAKER) 97.7 fL 79.0-92.2 H (test code = 753) MEAN CORPUSCULAR HEMOGLOBIN 31.7 pg 25.7-32.2 (BEAKER) (test code = 751) MEAN CORPUSCULAR HEMOGLOBIN CONC 32.5 GM/DL 32.3-36.5 (BEAKER) (test code = 752) RED CELL DISTRIBUTION WIDTH 15.4 % 11.6-14.4 H (BEAKER) (test code = 412) PLATELET COUNT (BEAKER) (test 263 K/CU MM 150-450 code = 756) MEAN PLATELET VOLUME (BEAKER) 9.7 fL 9.4-12.4 (test code = 754) NUCLEATED RED BLOOD CELLS 0 /100 WBC 0-0 (BEAKER) (test code = 413) NEUTROPHILS RELATIVE PERCENT 85 % (BEAKER) (test code = 429) LYMPHOCYTES RELATIVE PERCENT 3 % (BEAKER) (test code = 430) MONOCYTES RELATIVE PERCENT 8 % (BEAKER) (test code = 431) EOSINOPHILS RELATIVE PERCENT 3 % (BEAKER) (test code = 432) BASOPHILS RELATIVE PERCENT 1 % (BEAKER) (test code = 437) NEUTROPHILS ABSOLUTE COUNT 8.56 K/ L 1.78-5.38 H (BEAKER) (test code = 670) LYMPHOCYTES ABSOLUTE COUNT 0.33 K/ L 1.32-3.57 L (BEAKER) (test code = 414) MONOCYTES ABSOLUTE COUNT (BEAKER) 0.76 K/ L 0.30-0.82 (test code = 415) EOSINOPHILS ABSOLUTE COUNT 0.28 K/ L 0.04-0.54 (BEAKER) (test code = 416) BASOPHILS ABSOLUTE COUNT (BEAKER) 0.05 K/ L 0.01-0.08 (test code = 417) IMMATURE GRANULOCYTES-RELATIVE 1 % 0-1 PERCENT (BEAKER) (test code = 2801) TROPONIN [id number] 02:56:00 Test Item Value Reference Range Interpretation Comments TROPONIN I (BEAKER) (test code = 26.65 ng/mL 0.00-0.03 [facility]) Troponin I (TnI) levels must be interpreted in the context of the presenting symptoms and the clinical findings. Elevated TnI levels indicate myocardial damage, but are not specific for ischemic heart disease. Elevated TnI levels are seen in patients with other cardiac conditions (including myocarditis and congestive heart failure), and slight TnI elevations occur in patients with other conditions, including sepsis, renal failure, acidosis, acute neurological disease, and persistent tachyarrhythmia.Sheep Farmer ID - EDASIPOC ACTIVATED CLOTTING [id number] 21:45:00 Test Item Value Reference Range Interpretation Comments Activated Clotting Time 98 sec : 74 -137 seconds, (test code = 441) Baseline: TESTED AT [place] [address] [facility], [address]: Sheep Farmer/Techni moris ID = [id number] for CA RIAS, GUERO [id number] 21:45:00 Test Item Value Reference Range Interpretation Comments ACTIVATED CLOTTING TIME 98 sec : 74 -137 seconds, (BEAKER) (test code = Baseli ne: TESTED AT 441) [facility] [address] [facility], [address]: Sheep Farmer/Techni moris ID = [id number] for CA RIAS, GUERO COMPREHENSIVE METABOLIC [id number] 19:19:00 Test Item Value Reference Range Interpretation Comments TOTAL PROTEIN 6.5 gm/dL 6.0-8.3 Specimen sligh tly (BEAKER) (test code = hemoly zed 770) ALBUMIN (BEAKER) 3.6 g/dL 3.5-5.0 Specimen sl ightly (test code = 1145) hemolyzed ALKALINE PHOSPHATASE 98 U/L 40-150 (BEAKER) (test code = 346) BILIRUBIN TOTAL 1.5 mg/dL 0.2-1.2 H Specimen sli ghtly (BEAKER) (test code = hemoly zed 377) SODIUM (BEAKER) (test 135 meq/L 136-145 L code = 381) POTASSIUM (BEAKER) 4.3 meq/L 3.5-5.1 Specimen slightly (test code = 379) hemolyzed CHLORIDE (BEAKER) 99 meq/L 98-107 (test code = 382) CO2 (BEAKER) (test 24 meq/L 22-29 code = 355) BLOOD UREA NITROGEN 14 mg/dL 7-21 (BEAKER) (test code = 354) CREATININE (BEAKER) 1.01 mg/dL 0.57-1.25 Specimen slightly (test code = 358) hemolyzed GLUCOSE RANDOM 153 mg/dL 70-105 H (BEAKER) (test code = 652) CALCIUM (BEAKER) 8.3 mg/dL 8.4-10.2 L (test code = 697) AST (SGOT) (BEAKER) 53 U/L 5-34 H Specimen slightly (test code = 353) hemolyzed ALT (SGPT) (BEAKER) 44 U/L 6-55 Specimen slightly (test code = 347) hemolyzed EGFR (BEAKER) (test 73 mL/min/1.73 ESTIMShashank WALKER GFR IS code = 1092) sq m NOT ACCURATE CREATININE CLEARANCE IN PREDICTING GLOMERULAR FILTRATION RATE . ESTIMATED GFR I S NOT APPLICABLE FOR DIALYSIS PATIEN TS. Sheep Farmer ID - DBTROPONIN [id number] 18:41:00 Test Item Value Reference Range Interpretation Comments TROPONIN I (BEAKER) (test code = 37.37 ng/mL 0.00-0.03 397) Troponin I (TnI) levels must be interpreted in the context of the presenting symptoms and the clinical findings. Elevated TnI levels indicate myocardial damage, but are not specific for ischemic heart disease. Elevated TnI levels are seen in patients with other cardiac conditions (including myocarditis and congestive heart failure), and slight TnI elevations occur in patients with other conditions, including sepsis, renal failure, acidosis, acute neurological disease, and persistent tachyarrhythmia.Sheep Farmer ID - [id number] 18:37:00 Test Item Value Reference Range Interpretation Comments ACTIVATED CLOTTING TIME 164 sec : 74 -137 seconds, (BEAKER) (test code = Baseli ne: TESTED AT 441) [address], [facility] 30: Sheep Farmer/Techni moris ID = [id number] for CO LEANN BUCK [id number] 15:24:00 Test Item Value Reference Range Interpretation Comments ACTIVATED CLOTTING TIME 296 sec : 74 -137 seconds, (BEAKER) (test code = Baseli ne: TESTED AT 441) [address], [facility] 30: Sheep Farmer/Techni moris ID = [id number] for FE RRJEREMI JOHNSONA, ERICK [id number] 15:10:00 Test Item Value Reference Range Interpretation Comments ACTIVATED CLOTTING TIME 274 sec : 74 -137 seconds, (BEAKER) (test code = Baseli ne: TESTED AT 441) [address], [facility] 30: Sheep Farmer/Techni moris ID = [id number] for FE RRARI TOREY, ERICK [id number] 14:43:00 Test Item Value Reference Range Interpretation Comments ACTIVATED CLOTTING TIME 268 sec : 74 -137 seconds, (BEAKER) (test code = Baseli ne: TESTED AT 441) [address], [facility] 30: Sheep Farmer/Techni moris ID = [id number] for ERICK SANCHEZ TROPONIN [id number] 12:08:00 Test Item Value Reference Range Interpretation Comments TROPONIN I (BEAKER) (test code = 19.19 ng/mL 0.00-0.03 397) Troponin I (TnI) levels must be interpreted in the context of the presenting symptoms and the clinical findings. Elevated TnI levels indicate myocardial damage, but are not specific for ischemic heart disease. Elevated TnI levels are seen in patients with other cardiac conditions (including myocarditis and congestive heart failure), and slight TnI elevations occur in patients with other conditions, including sepsis, renal failure, acidosis, acute neurological disease, and persistent tachyarrhythmia.Sheep Farmer ID - ZACK [id number] 11:50:00 Test Item Value Reference Range Interpretation Comments PARTIAL THROMBOPLASTIN TIME 45.6 seconds 22.5-36.0 H (BEAKER) (test code = 760) HEMOGLOBIN [id number] 09:58:00 Test Item Value Reference Range Interpretation Comments HEMOGLOBIN A1C (BEAKER) (test code = 5.5 % 4.3-6.1 368) Sheep Farmer ID - [id number] ID - ADMINHemoglobin [id number] 09:55:00 Test Item Value Reference Range Interpretation Comments Hemoglobin A1C (test code 5.5 % 4.3-6.1 = 4548-4) SOREN (test code = SOREN) Sheep Farmer ID - ADMIN Lab Interpretation (test Normal code = 95261-1) [facility] [id number] 09:55:00 Test Item Value Reference Range Interpretation Comments HEMOGLOBIN A1C (BEAKER) (test code = 5.5 % 4.3-6.1 368) Sheep Farmer ID - [id number] 05:58:00 Test Item Value Reference Range Interpretation Comments PARTIAL THROMBOPLASTIN TIME 44.0 seconds 22.5-36.0 H (BEAKER) (test code = 760) TROPONIN [id number] 05:41:00 Test Item Value Reference Range Interpretation Comments TROPONIN I (BEAKER) (test code = 17.54 ng/mL 0.00-0.03 397) Troponin I (TnI) levels must be interpreted in the context of the presenting symptoms and the clinical findings. Elevated TnI levels indicate myocardial damage, but are not specific for ischemic heart disease. Elevated TnI levels are seen in patients with other cardiac conditions (including myocarditis and congestive heart failure), and slight TnI elevations occur in patients with other conditions, including sepsis, renal failure, acidosis, acute neurological disease, and persistent tachyarrhythmia.Sheep Farmer ID - ZACK MBASIC METABOLIC [id number] 05:29:00 Test Item Value Reference Range Interpretation Comments SODIUM (BEAKER) 133 meq/L 136-145 L (test code = 381) POTASSIUM (BEAKER) 4.0 meq/L 3.5-5.1 (test code = 379) CHLORIDE (BEAKER) 100 meq/L 98-107 (test code = 382) CO2 (BEAKER) (test 22 meq/L 22-29 code = 355) BLOOD UREA NITROGEN 16 mg/dL 7-21 (BEAKER) (test code = 354) CREATININE (BEAKER) 0.92 mg/dL 0.57-1.25 (test code = 358) GLUCOSE RANDOM 131 mg/dL 70-105 H (BEAKER) (test code = 652) CALCIUM (BEAKER) 8.7 mg/dL 8.4-10.2 (test code = 697) EGFR (BEAKER) (test 81 mL/min/1.73 ESTIMA AARON GFR IS code = 1092) sq m NOT ACCURATE CREATININE CLEARANCE IN PREDICTING GLOMERULAR FILTRATION RATE . ESTIMATED GFR I S NOT APPLICABLE FOR DIALYSIS PATIEN TS. Sheep Farmer ID - ZACK [facility] (hemogram only)2020-05-09 05:26:00 Test Item Value Reference Range Interpretation Comments WBC (test code = 6690-2) 12.1 3.5- 10.5 K/L H RBC (test code = 789-8) 3.95 4.63- 6.08 M/L L MCHC (test code = 786-4) 32.6 32.3- 36.5 GM/DL L Hematocrit (test code = 4544-3) 38.9 % 40.1-51 L MCV (test code = 787-2) 98.5 fL 79-92.2 H MCH (test code = 785-6) 32.2 pg 25.7-32.2 RDW (test code = 788-0) 15.7 % 11.6-14.4 H Platelets (test code = 777-3) 255 150- 450 K/CU MM MPV (test code = 56081-6) 10.4 fL 9.4-12.4 nRBC (test code = 413) 0 0- 0 /100 WBC Lab Interpretation (test code = Abnormal 79075-5) [facility] (HEMOGRAM ONLY)2020-05-09 05:26:00 Test Item Value Reference Range Interpretation Comments WHITE BLOOD CELL COUNT (BEAKER) 12.1 K/ L 3.5-10.5 H (test code = 775) RED BLOOD CELL COUNT (BEAKER) 3.95 M/ L 4.63-6.08 L (test code = 761) HEMOGLOBIN (BEAKER) (test code = 12.7 GM/DL 13.7-17.5 L 410) HEMATOCRIT (BEAKER) (test code = 38.9 % 40.1-51.0 L 411) MEAN CORPUSCULAR VOLUME (BEAKER) 98.5 fL 79.0-92.2 H (test code = 753) MEAN CORPUSCULAR HEMOGLOBIN 32.2 pg 25.7-32.2 (BEAKER) (test code = 751) MEAN CORPUSCULAR HEMOGLOBIN CONC 32.6 GM/DL 32.3-36.5 (BEAKER) (test code = 752) RED CELL DISTRIBUTION WIDTH 15.7 % 11.6-14.4 H (BEAKER) (test code = 412) PLATELET COUNT (BEAKER) (test 255 K/CU MM 150-450 code = 756) MEAN PLATELET VOLUME (BEAKER) 10.4 fL 9.4-12.4 (test code = 754) NUCLEATED RED BLOOD CELLS 0 /100 WBC 0-0 (BEAKER) (test code = 413) TROPONIN [id number] 00:25:00 Test Item Value Reference Range Interpretation Comments TROPONIN I (BEAKER) (test code = 13.98 ng/mL 0.00-0.03 HH 397) Troponin I (TnI) levels must be interpreted in the context of the presenting symptoms and the clinical findings. Elevated TnI levels indicate myocardial damage, but are not specific for ischemic heart disease. Elevated TnI levels are seen in patients with other cardiac conditions (including myocarditis and congestive heart failure), and slight TnI elevations occur in patients with other conditions, including sepsis, renal failure, acidosis, acute neurological disease, and persistent tachyarrhythmia.Sheep Farmer ID - ZACK [id number] 00:13:00 Test Item Value Reference Range Interpretation Comments PARTIAL THROMBOPLASTIN TIME 37.4 seconds 22.5-36.0 H (DARBY) (test code = 760) RAD, CHEST, 1 VIEW, NON [id number] 21:25:00Reason for exam:->NSTEMI, heart failure exacerbationShould this be performed at the bedside?->Yes [facility] : 1950 Sex: MFINAL REPORT RAD, CHEST, 1 VIEW, NON DEPT INDICATION: NSTEMI, heart failure exacerbation COMPARISON: None available FINDINGS: Portable frontal view of the chest. IMPRESSION: Support Lines: None. Lungs and pleura: Coarse interstitial airspace opacities are favored to represent pulmonary vascular congestion and interstitial pulmonary edema. No lobar consolidation. Minimal le ft basilar atelectasis. No pleural effusion. No pneumothorax.Heart and mediastinum: Enlarged cardiacmediastinal silhouette likely exaggerated by technique. Atherosclerotic calcifications of the thoracic aorta.Additional findings: Postsurgical changes of the right shoulder. Osteopenia. Signed: Sada Emery Verified Date/Time: 05/08/2020 21:25:52 ONIN [id number] 16:57:00 Test Item Value Reference Range Interpretation Comments TROPONIN I (BEAKER) (test code = 14.20 ng/mL 0.00-0.03 HH 397) Troponin I (TnI) levels must be interpreted in the context of the presenting symptoms and the clinical findings. Elevated TnI levels indicate myocardial damage, but are not specific for ischemic heart disease. Elevated TnI levels are seen in patients with other cardiac conditions (including myocarditis and congestive heart failure), and slight TnI elevations occur in patients with other conditions, including sepsis, renal failure, acidosis, acute neurological disease, and persistent tachyarrhythmia.Sheep Farmer ID - BSTROPONIN [id number] 16:57:00 Test Item Value Reference Range Interpretation Comments TROPONIN I (BEAKER) (test code = 14.06 ng/mL 0.00-0.03 397) Troponin I (TnI) levels must be interpreted in the context of the presenting symptoms and the clinical findings. Elevated TnI levels indicate myocardial damage, but are not specific for ischemic heart disease. Elevated TnI levels are seen in patients with other cardiac conditions (including myocarditis and congestive heart failure), and slight TnI elevations occur in patients with other conditions, including sepsis, renal failure, acidosis, acute neurological disease, and persistent tachyarrhythmia.Sheep Farmer ID - [id number] 16:51:00 Test Item Value Reference Range Interpretation Comments Protime (test code = 14.4 11.9- 14.2 H 5902-2) seconds INR (test code = 1.15 <=5.90 6301-6) PTT (test code = 44.5 22.5- 36.0 H 94644-3) seconds SOREN (test code = SOREN) Effective 12/21/2018: PT Reference Range ChangeNew: 11.9-14.2 Previous: 11.7-14.7 RECOMMENDED COUMADIN/WARFARIN INR THERAPY RANGESSTANDARD DOSE: 2.0-3.0 Includes: PROPHYLAXIS for venous thrombosis, systemic embolization; TREATMENT for venous thrombosis and/or pulmonary embolus.HIGH RISK: Target INR is 2.5-3.5 for patients wiht mechanical heart valves. Lab Interpretation Abnormal (test code = 92184-5) [facility]/[id number] 16:51:00 Test Item Value Reference Range Interpretation Comments PROTIME (BEAKER) (test code = 14.4 seconds 11.9-14.2 H 759) INR (BEAKER) (test code = 370) 1.15 <=5.90 PARTIAL THROMBOPLASTIN TIME 44.5 seconds 22.5-36.0 H (DARBY) (test code = 760) Effective 12/21/2018: PT Reference Range ChangeNew: 11.9-14.2 Previous: 11.7- 14.7RECOMMENDED COUMADIN/WARFARIN INR THERAPY RANGESSTANDARD DOSE: 2.0-3.0 Includes: PROPHYLAXIS for venous thrombosis, systemic embolization; TREATMENT for venous thrombosis and/or pulmonary embolus.HIGH RISK: Target INR is2.5-3.5 for patients wiht mechanical heart valves.Lipid [id number] 16:43:00 Test Item Value Reference Range Interpretation Comments Triglycerides (test 166 mg/dL Specimen code = 2571-8) slightly hemolyzed Cholesterol (test 189 mg/dL Specimen code = 3-3) slightly hemolyzed HDL (test code = 41 mg/dL 2084-) LDL Calculated (test 115 mg/dL code = 77471-1) SOREN (test code = Triglyceride SOREN) Reference Range: Low Risk <150 Borderline 150-199 High Risk 200-499 Very High Risk >=500 Cholesterol Reference Range: Low Risk <200 Borderline 200-239 High Risk >240 HDL Cholesterol Reference Range: Low Risk >=60 High Risk <40 LDL Cholesterol Reference Range: Optimal <100 Near Optimal 100-129 Borderline 130-159 High 160-189 Very High >=190 Sheep Farmer ID - BS [facility] HospitalHepatic function [id number] 16:43:00 Test Item Value Reference Range Interpretation Comments Protein, Total (test 6.6 6.0- 8.3 gm/dL Speci men code = 2885-2) slightly hemolyzed Albumin (test code = 3.6 g/dL 3.5-5 Specime n 95938-3) slightly hemolyzed Total Bilirubin (test 1.3 mg/dL 0.2-1.2 H Specim en code = 1974-2) slightly hemolyzed Bilirubin, Direct 0.5 mg/dL 0.1-0.5 Specimen (test code = 1967-7) slightl y hemolyzed Alkaline Phosphatase 94 U/L 40-150 (test code = 6768-6) AST (test code = 46 U/L 5-34 H Specimen 1919-) slightly hemolyzed ALT (test code = 54 U/L 6-55 Specimen 1742-6) slightly hemolyzed SOREN (test code = SOREN) Sheep Farmer ID - BS Lab Interpretation Abnormal (test code = 21714-1) [facility] [id number] 16:43:00 Test Item Value Reference Range Interpretation Comments SODIUM (BEAKER) 133 meq/L 136-145 L (test code = 381) POTASSIUM (BEAKER) 4.8 meq/L 3.5-5.1 Specimen slightly (test code = 379) hemolyzed CHLORIDE (BEAKER) 102 meq/L 98-107 (test code = 382) CO2 (BEAKER) (test 21 meq/L 22-29 L code = 355) BLOOD UREA NITROGEN 16 mg/dL 7-21 (BEAKER) (test code = 354) CREATININE (BEAKER) 0.86 mg/dL 0.57-1.25 Specimen slightly (test code = 358) hemolyzed GLUCOSE RANDOM 128 mg/dL 70-105 H (BEAKER) (test code = 652) CALCIUM (BEAKER) 8.0 mg/dL 8.4-10.2 L (test code = 697) EGFR (BEAKER) (test 88 mL/min/1.73 ESTIMA AARON GFR IS code = 1092) sq m NOT ACCURATE CREATININE CLEARANCE IN PREDICTING GLOMERULAR FILTRATION RATE . ESTIMATED GFR I S NOT APPLICABLE FOR DIALYSIS PATIEN TS. Sheep Farmer ID - BSLIPID [id number] 16:43:00 Test Item Value Reference Range Interpretation Comments TRIGLYCERIDES (BEAKER) 166 mg/dL Speci men slightly (test code = 540) hemolyzed CHOLESTEROL (BEAKER) 189 mg/dL Specime n slightly (test code = 631) hemolyzed HDL CHOLESTEROL (BEAKER) 41 mg/dL (test code = 976) LDL CHOLESTEROL 115 mg/dL CALCULATED (BEAKER) (test code = 633) Triglyceride Reference Range: Low Risk <150 Borderline 150-199 High Risk 200-499 Very High Risk >=500Cholesterol Reference Range: Low Risk <200 Borderline 200-239 High Risk >240HDL Cholesterol Reference Range: Low Risk >=60 High Risk <40LDL Cholesterol Reference Range: Optimal <100 Near Optimal 100-129 Borderline 130-159 High 160-189 Very High >=190 Sheep Farmer ID - BSHEPATIC FUNCTION [id number] 16:43:00 Test Item Value Reference Range Interpretation Comments TOTAL PROTEIN (BEAKER) 6.6 gm/dL 6.0-8.3 Speci men slightly (test code = 770) hemolyzed ALBUMIN (BEAKER) (test 3.6 g/dL 3.5-5.0 Speci men slightly code = 1145) hemolyzed BILIRUBIN TOTAL 1.3 mg/dL 0.2-1.2 H Specimen sli ghtly (BEAKER) (test code = hemoly zed 377) BILIRUBIN DIRECT 0.5 mg/dL 0.1-0.5 Specimen sl ightly (BEAKER) (test code = hemoly zed 706) ALKALINE PHOSPHATASE 94 U/L 40-150 (BEAKER) (test code = 346) AST (SGOT) (BEAKER) 46 U/L 5-34 H Specimen slightly (test code = 353) hemolyzed ALT (SGPT) (BEAKER) 54 U/L 6-55 Specimen slightly (test code = 347) hemolyzed Sheep Farmer ID - BSCBC (HEMOGRAM ONLY)2020-05-08 16:31:00 Test Item Value Reference Range Interpretation Comments WHITE BLOOD CELL COUNT (BEAKER) 11.4 K/ L 3.5-10.5 H (test code = 775) RED BLOOD CELL COUNT (BEAKER) 3.93 M/ L 4.63-6.08 L (test code = 761) HEMOGLOBIN (BEAKER) (test code = 12.8 GM/DL 13.7-17.5 L 410) HEMATOCRIT (BEAKER) (test code = 38.3 % 40.1-51.0 L 411) MEAN CORPUSCULAR VOLUME (BEAKER) 97.5 fL 79.0-92.2 H (test code = 753) MEAN CORPUSCULAR HEMOGLOBIN 32.6 pg 25.7-32.2 H (BEAKER) (test code = 751) MEAN CORPUSCULAR HEMOGLOBIN CONC 33.4 GM/DL 32.3-36.5 (BEAKER) (test code = 752) RED CELL DISTRIBUTION WIDTH 15.6 % 11.6-14.4 H (BEAKER) (test code = 412) PLATELET COUNT (BEAKER) (test 259 K/CU MM 150-450 code = 756) MEAN PLATELET VOLUME (BEAKER) 10.0 fL 9.4-12.4 (test code = 754) NUCLEATED RED BLOOD CELLS 0 /100 WBC 0-0 (BEAKER) (test code = 413) COVID 19 Asymptomatic IH [id number] 10:00:00 Test Item Value Reference Range Interpretation Comments COVID 19 Asymptomatic IH AG (test NEGATIVE code = COVNONPUIAG) Novel Coronavirus 2019 [id number] 23:12:00 Test Item Value Reference Range Interpretation Comments Novel Coronavirus 2019 Inhouse (test Negative Negative code = COVNONPUI) Novel Coronavirus 2019 [id number] 23:11:00 Test Item Value Reference Range Interpretation Comments Novel Coronavirus 2019 Inhouse (test Negative Negative code = COVNONPUI) PROTHROMBIN [id number] 20:29:00 Test Item Value Reference Range Interpretation Comments PROTHROMBIN TIME 12.1 secs 10.1-12.5 N PATIENT (test code = PTP) INTERNATIONAL NORMAL 1.08 <2.0 RECOMME NDED THERAPEUTIC RATIO (test code = RANGE FOR ORAL INR) ANTICOAGULANTTR EATMENT: CONDI TION INRProphylaxis of venous thrombos is in 2.0 - 3.0 high-risk medic al or surgical patientsTreatme nt of venous thrombos is 2.0 - 3.0Prevention o f embolism 2.0 - 3.0Prevention o f recurrent embol ism, or 3.0 - 4. 5 patients with mechanical pros thetic intravascular v orellana IS PATIENT ON ANTICOAGULANTS ? NHas Lab been notified if Patient is on Heparin Drip? NOTHROMBOPLASTIN TIME [id number] 20:29:00 Test Item Value Reference Range Interpretation Comments PTT ACTIVATED (test 52.2 secs 24.9-37.0 HH VERIFIED BY REPEAT code = APTT) ANALYSIS.CRITIC AL VALUE CALLED TO [facility] BACK & CONFIRMED? YESB Chad ChanLAB.CD 2027RESULTS FAX ED [facility] IS PATIENT ON ANTICOAGULANTS ? NHas Lab been notified if Patient is on Heparin Drip? NOCOMPREHENSIVE METABOLIC [id number] 20:24:00 Test Item Value Reference Range Interpretation Comments SODIUM (test code = 140 mmol/L 136-145 N NA) POTASSIUM (test code = 4.6 mmol/L 3.5-5.1 N K) CHLORIDE (test code = 101.0 mmol/L 98-107 N CL) CARBON DIOXIDE (test 28.7 mmol/L 21-32 N code = CO2) GLUCOSE (test code = 102 mg/dL 70-110 N GLU) BLOOD UREA NITROGEN 16 mg/dL 7-18 N (test code = BUN) GLOMERULAR FILTRATION 75.8 >60 Unit o f measure: RATE (test code = GFR) mL/mi n/1.73 [id number] Range:Healthy Adults >90 mL/min/1.73 m2 For Chronic Kidney Disease: St age II Mild Decrease in GFR 60-90 St age III Moderate Decrease in GFR 30-59 Stage IV Severe Decre ase in GFR 15- 29 Stage V Kidney Failure <15 CREATININE (test code 0.98 mg/dL 0.55-1.30 N = CREAT) TOTAL PROTEIN (test 7.2 g/dL 6.4-8.2 N code = PROT) ALBUMIN (test code = 3.7 g/dL 3.4-5.0 N ALB) GLOBULIN (test code = 3.5 g/dL 2.2-4.2 N GLOB) ALBUMIN/GLOBULIN RATIO 1.1 0.7-2.0 N (test code = A/G) CALCIUM (test code = 8.8 mg/dL 8.2-10.1 N CA) BILIRUBIN TOTAL (test 0.70 mg/dL 0.2-1.00 N code = BILT) SGOT/AST (test code = 42.0 U/L 15-37 H AST) SGPT/ALT (test code = 66.0 U/L 12-78 N Please note new ALT) normal range. ALKALINE PHOSPHATASE 115 U/L 46-116 N TOTAL (test code = ALKP) CBC W/AUTO [id number] 19:11:00 Test Item Value Reference Range Interpretation Comments WHITE BLOOD CELL (test code = WBC) 9.6 K/mm3 5.7-10.5 N RED BLOOD CELL (test code = RBC) 4.45 M/mm3 4.2-5.4 N HEMOGLOBIN (test code = HGB) 13.4 g/dL 12-16 N HEMATOCRIT (test code = HCT) 41.2 % 37-47 N MEAN CELL VOLUME (test code = MCV) 93 fL 80-98 N MEAN CELL HGB (test code = MCH) 30.1 pg 27-34 N MEAN CELL HGB CONCENTRATION (test 32.5 g/dL 30.8-34.1 N code = MCHC) RED CELL DISTRIBUTION WIDTH (test 16.4 % 11-16 H code = RDW) PLT (test code = PLT) 291 K/mm3 130-400 N MEAN PLATELET VOLUME (test code = 9.3 fL 8.9-12.1 N MPV) NEUTROPHIL % (test code = NT%) 74.7 % 45-70 H LYMPHOCYTE % (test code = LY%) 7.4 % 20-40 L MONOCYTE % (test code = MO%) 9.2 % 3-10 N EOSINOPHIL % (test code = EO%) 7.1 % 1-5 H BASOPHIL % (test code = BA%) 0.7 % 0.0-1.1 N NEUTROPHIL # (test code = NT#) 7.20 K/mm3 2.00-7.50 N LYMPHOCYTE # (test code = LY#) 0.71 K/mm3 1.50-4.00 L MONOCYTE # (test code = MO#) 0.89 K/mm3 0.2-0.8 H EOSINOPHIL # (test code = EO#) 0.68 K/mm3 0.04-0.4 H BASOPHIL # (test code = BA#) 0.07 K/mm3 0.02-0.10 N MANUAL DIFF REQUIRED (test code = NO MANUAL DIFF MDIFF) NUCLEATED RED BLOOD CELL (test 0 % 0-0 N code = NRBC) [id number] 09:30:0010.7[facility] IotnlejIEDBKXWCEF2603-71-81 09:30:00 31.5[facility] OroxppwOVAPSMRMED0919-00-32 17:23:0018.2[facility] HermannTOXICOLOGY 2019-04-18 17:23:00 Test Item Value Reference Range Interpretation Comments William Shrestha TND (test code = William Shrestha 1230 1 TND) [facility] MehnwmtSNDJMHQSOCAV3772-08-53 09:49:0014.9[facility]annELECTROLYTES 2019-04-18 09:49:0095[facility] JajlcyoEDKBSIFQJDGP8562-95-47 09:49:0015[facility] JcdioarIIYHBHKLNIQV3580-28-75 09:49:000.80[facility] TralwcwIRKABILBERQW7157-74-64 09:49:55423Nwmkodpj XtjnjdaTZXVAREYQCUK1497-81-48 09:49:003.9[facility] ANVEEULVQVQX0450-86-95 09:49:67196Vcxefagp OylvgnbLXSYWMDAVUWK4584-84-22 09:49:0022[facility] KbkkcgwVXMLVFEQORDA5934-54-68 09:49:008.7[facility] YWDCKRKQAIRK6453-53-95 09:49:0091[facility] CjnplpcFYRCYKWBQL8557-60-05 09:49:00 Normal (04/18/19 4:49 AM)[facility] RrqzfqgPRBTLPOILX4443-76-02 09:49:00Normal (04/18/19 4:49 AM)[facility] CjnzdxpFGXEANHRTC9457-98-92 09:49:0084.5[facility] NxuqsaqTKKFRJWOZY5615-40-70 09:49:004.7[facility] DaygrddMCPLMKESLW0547-69-38 09:49:008.0[facility] RkcbgojOZZBFMWXEB6109-48-67 09:49:002.6[facility] PCNTRVUENB0443-26-06 09:49:000.2[facility] BxkqlcgBKQBRARZXO2781-45-91 09:49:008.4 [facility] YbdjqrgLWZHFYNCXX3123-08-18 09:49:000.5[facility] HermannHEMATOLOGY 2019-04-18 09:49:000.8[facility] RacgvngAHJGKRBVYG9649-04-68 09:49:000.3[facility] DulnakxVRGWZNDUXU5661-60-03 09:49:000.0[facility] QunttfnOQHGBYJUVB0775-79-38 09:49:0010.0[facility] TidblrgOPAXHQDHAW1103-65-28 09:49:003.52[facility] VHRPDCRECU4500-10-42 09:49:0011.3[facility] VbmpfzzHFJEAOHLDK9786-54-75 09:49:00 34.3[facility] KuxhdiyLWRNNRDVXK8049-54-13 09:49:0097.5[facility] HermannHEMATOLOGY 2019-04-18 09:49:00 Test Item Value Reference Range Interpretation Comments MCH (test code = MCH) 32.0 pg 27.0-31.0 [facility] HoylrvhYISOAFYYWW7130-46-71 09:49:0032.8[facility] HermannHEMATOLOGY 2019-04-18 09:49:0014.5[facility] ZihxkhpLVFBKSAARR9396-26-44 09:49:61344Sdwcmxzy QijwjpjXRGLHSFWYI4484-50-32 09:49:008.3[facility] HermannBACTERIAL - SEROLOGY 2019-04-17 18:24:00Positive 1*ABN*(04/17/19 1:24 PM)[facility] HermannHEMATOLOGY 2019-04-17 17:43:0046[facility] AtxqdxiOMRVLWASAOZA4163-81-79 08:43:0013.6[facility] NsgdfmiBQWQUMLSPABY5102-58-57 08:43:0091[facility] KwgpfqeAJATNQAVAMXQ3627-74-88 08:43:0024[facility] RvtzfueRVJVLCDOLSKF9119-93-15 08:43:001.00[facility] FXHMOPVDKUGP1691-03-35 08:43:29980Wmiuesmx QeifipfSSDUOHNRGWWZ9327-02-00 08:43:003.6[facility] LuiqxkpNZOASDXMGLTO6096-56-74 08:43:51532Gbapuosf Ducor BPOJLVZMEINJ6716-56-83 08:43:0023[facility] PntvyngVADRILAWOEWX6800-61-84 08:43:00 8.3[facility] ZupiegmAFZSWTXCGRGL6564-32-08 08:43:0076[facility] HermannHEMATOLOGY 2019-04-17 08:43:0010.1[facility] SyiinqzMBRMWNGDHN8055-99-89 08:43:003.09[facility] ImeyfimTWHHKEILBZ4121-68-37 08:43:0010.2[facility] TvotrymJAQDFYNPSW8686-03-14 08:43:0030.3[facility] XawplmjBIVQDBPGWE3994-24-04 08:43:0098.1[facility] MBCNICLLNB3607-94-87 08:43:00 Test Item Value Reference Range Interpretation Comments MCH (test code = MCH) 32.9 pg 27.0-31.0 [facility] DistrictUpvmrmzZCPGORTRYX8028-10-14 08:43:0033.6[facility] HermannHEMATOLOGY 2019-04-17 08:43:0014.1[facility] VlpqbvaVEUZWIJNXR3638-27-90 08:43:17958Hbyayvwi TgazyotJFWAMOARVO7013-60-75 08:43:008.4[facility] DkqcbowETKMENYACF6014-88-22 08:43:0028.2[facility] HermannCHEM DNONY2603-02-10 04:37:00<0.05MeksriCHRISTUS Saint Michael HospitalCOMPREHENSIVE METABOLIC [id number] 19:11:00 Test Item Value Reference Range Interpretation Comments SODIUM (test code = NA) 137 mmol/L 136-145 N POTASSIUM (test code = 4.2 mmol/L 3.5-5.1 N K) CHLORIDE (test code = 97.0 mmol/L 98-107 L CL) CARBON DIOXIDE (test 23.9 mmol/L 21-32 N code = CO2) GLUCOSE (test code = 114 mg/dL 70-110 H GLU) BLOOD UREA NITROGEN 14 mg/dL 7-18 N (test code = BUN) GLOMERULAR FILTRATION 61.4 >60 Unit o f measure: RATE (test code = GFR) mL/mi n/1.73 d4Tjlnkecvz Range:Healthy Adults >90 mL/min/1.73 m2 For Chronic Kidney Disease: St age II Mild Decrease in GFR 60-90 St age III Moderate Decrease in GFR 30-59 Stage IV Severe Decre ase in GFR 15- 29 Stage V Kidney Failure <15 CREATININE (test code = 1.18 mg/dL 0.55-1.30 N CREAT) TOTAL PROTEIN (test 6.9 g/dL 6.4-8.2 N code = PROT) ALBUMIN (test code = 4.2 g/dL 3.4-5.0 N ALB) GLOBULIN (test code = 2.7 g/dL 2.2-4.2 N GLOB) ALBUMIN/GLOBULIN RATIO 1.6 0.7-2.0 N (test code = A/G) CALCIUM (test code = 9.4 mg/dL 8.2-10.1 N CA) BILIRUBIN TOTAL (test 0.68 mg/dL 0.2-1.00 N code = BILT) SGOT/AST (test code = 30.0 U/L 15-37 N AST) SGPT/ALT (test code = 56.0 U/L 12-78 N Please note new ALT) normal range. ALKALINE PHOSPHATASE 104 U/L 46-116 N TOTAL (test code = ALKP) PROTHROMBIN [id number] 18:30:00 Test Item Value Reference Range Interpretation Comments PROTHROMBIN TIME 12.5 secs 10.1-12.5 N PATIENT (test code = PTP) INTERNATIONAL NORMAL 1.11 <2.0 RECOMME NDED THERAPEUTIC RATIO (test code = RANGE FOR ORAL INR) ANTICOAGULANTTR EATMENT: CONDI TION INRProphylaxis of venous thrombos is in 2.0 - 3.0 high-risk medic al or surgical patientsTreatme nt of venous thrombos is 2.0 - 3.0Prevention o f embolism 2.0 - 3.0Prevention o f recurrent embol ism, or 3.0 - 4. 5 patients with mechanical pros thetic intravascular v orellana IS PATIENT ON ANTICOAGULANTS ? ILas Lab been notified if Patient is on Heparin Drip? NOTHROMBOPLASTIN TIME [id number] 18:30:00 Test Item Value Reference Range Interpretation Comments PTT ACTIVATED (test code = APTT) 39.4 secs 24.9-37.0 H IS PATIENT ON ANTICOAGULANTS ? ILas Lab been notified if Patient is on Heparin Drip? NOCBC W/AUTO [id number] 18:30:00 Test Item Value Reference Range Interpretation Comments WHITE BLOOD CELL (test code = WBC) 10.5 K/mm3 5.7-10.5 N RED BLOOD CELL (test code = RBC) 4.67 M/mm3 4.2-5.4 N HEMOGLOBIN (test code = HGB) 15.4 g/dL 12-16 N HEMATOCRIT (test code = HCT) 45.7 % 37-47 N MEAN CELL VOLUME (test code = MCV) 98 fL 80-98 N MEAN CELL HGB (test code = MCH) 33.0 pg 27-34 N MEAN CELL HGB CONCENTRATION (test 33.7 g/dL 30.8-34.1 N code = MCHC) RED CELL DISTRIBUTION WIDTH (test 14.4 % 11-16 N code = RDW) PLT (test code = PLT) 331 K/mm3 130-400 N MEAN PLATELET VOLUME (test code = 9.8 fL 8.9-12.1 N MPV) NEUTROPHIL % (test code = NT%) 81.1 % 45-70 H LYMPHOCYTE % (test code = LY%) 4.7 % 20-40 L MONOCYTE % (test code = MO%) 7.9 % 3-10 N EOSINOPHIL % (test code = EO%) 4.6 % 1-5 N BASOPHIL % (test code = BA%) 0.9 % 0.0-1.1 N NEUTROPHIL # (test code = NT#) 8.55 K/mm3 2.00-7.50 H LYMPHOCYTE # (test code = LY#) 0.50 K/mm3 1.50-4.00 L MONOCYTE # (test code = MO#) 0.83 K/mm3 0.2-0.8 H EOSINOPHIL # (test code = EO#) 0.48 K/mm3 0.04-0.4 H BASOPHIL # (test code = BA#) 0.09 K/mm3 0.02-0.10 N MANUAL DIFF REQUIRED (test code = NO MANUAL DIFF MDIFF) NUCLEATED RED BLOOD CELL (test 0 % 0-0 N code = NRBC) URINALYSIS [id number] 18:24:00 Test Item Value Reference Range Interpretation Comments UA COLOR (test code = COLU) YELLOW YELLOW UA APPEARANCE (test code = CLEAR CLEAR APPU) UA GLUCOSE DIPSTICK (test code NEGATIVE NEGATIVE = DGLUU) UA BILIRUBIN DIPSTICK (test NEGATIVE NEGATIVE code = BILU) UA KETONE DIPSTICK (test code NEGATIVE mg/dL NEGATIVE = KETU) UA SPECIFIC GRAVITY (test code 1.010 1.003-1.035 = SGU) UA BLOOD DIPSTICK (test code = NEGATIVE NEGATIVE TASHI) UA PH DIPSTICK (test code = 7.0 >6.5 SONALI) UA PROTEIN DIPSTICK (test code NEGATIVE mg/dL NEG = PROU) UA UROBILINIOGEN DIPSTICK 0.2 mg/dL NORM (test code = URO) UA NITRITE DIPSTICK (test code NEGATIVE NEG = CORNELIA) UA LEUKOCYTE ESTERASE DIPSTICK NEGATIVE NEGATIVE (test code = LEUU) UA WBC (test code = WBCU) <5.0 /HPF 0-2 UA RBC (test code = RBCU) 1-2 /HPF 0-2 A UA EPITHELIAL CELLS (test code RARE /HPF 0-2 = EPIU) UA BACTERIA (test code = BACU) FEW /HPF NONE UA HYALINE CAST (test code = 0-2 /LPF NONE SEEN HYALU) UA MUCUS (test code = MUCU) TRACE /LPF NONE SEEN
[2020-05-19] MEDS: AMIODARONE HCL 200 MG TAB PO SCH (19:42)
[2020-05-19] MEDS: APIXABAN 2.5 MG TABLET PO SCH (19:42)
[2020-05-19] MEDS: ATORVASTATIN 80 MG TAB PO SCH (20:13)
[2020-05-19 20:32] LABS: Urine Appearance CLOUDY; Urine Bilirubin NEGATIVE (NEG); Urine Blood NEGATIVE (NEG); Urine Color YELLOW; Urine Glucose NEGATIVE (NEG); Urine Protein NEGATIVE (NEG); Urine pH 5.5 (5.0-7.0)
[2020-05-19 21:48] LABS: Urine Culture Reflex Order NOT NEEDED
[2020-05-19 21:49] LABS: Urine Bacteria >50 /HPF (NONE SEEN); Urine RBC <5 /HPF (NONE SEEN); Urine Urothelial Cells <5 /HPF (NONE SEEN)
[2020-05-20] MEDS: METOPROLOL XL 25 MG TAB PO SCH ×2 (05:00→16:52)
[2020-05-20 06:32] LABS: Absolute Lymphocytes (CBC) 0.5 K/uL (0.7-4.9); Basophils % 0.4 % (0-1.3); Hematocrit 36.9 % (39.6-49.0); Lymphocytes % 4.8 % (15.3-44.8); MPV 8.2 fL (7.6-11.3); RBC Red Blood Cell Count 3.89 M/uL (4.33-5.43)
[2020-05-20 06:53] LABS: Albumin 3.2 g/dL (3.4-5.0); Magnesium 2.5 mg/dL (1.8-2.4); Potassium 3.6 mmol/L (3.5-5.1); Prealbumin 18.2 mg/dL (20-40)
[2020-05-20] MEDS ORDERED: PNEUMOCOCCAL VACCINE 0.5 ML IMVAC ONE (08:00)
[2020-05-20] MEDS: APIXABAN 2.5 MG TABLET PO SCH ×2 (08:01→19:21)
[2020-05-20] MEDS: BUPROPION HCL XL 150 MG TAB PO SCH (08:01)
[2020-05-20] MEDS: TORSEMIDE 20 MG TAB PO SCH (08:01)
[2020-05-20] MEDS: FOLIC ACID 1 MG TABLET PO SCH (08:02)
[2020-05-20] MEDS: AMIODARONE HCL 200 MG TAB PO SCH ×2 (08:02→19:20)
[2020-05-20] MEDS: ASPIRIN 81 MG CHEWABLE TABLET PO SCH (08:02)
[2020-05-20] MEDS: CLOPIDOGREL 75 MG TABLET PO SCH (08:02)
[2020-05-20] MEDS: ACETAMINOPHEN 500 MG TAB PO PRN (08:02)
[2020-05-20] MEDS ORDERED: [UNRECOGNIZED DRUG - OTHER] IH PRN (09:14)
--- NOTE | 2020-05-20 13:46 | R.HP ---
HISTORY AND PHYSICAL FACILITY: [facility] ENCOUNTER DATE AND TIME: 05/20/2020 13:40 (CDT) MR#: [id number] NAME Mason Pride ADDRESS: [place] [address] CITY: [place] [address] PHONE: ( DATE OF : 1950 AGE: 70 SSN# [id number] GENDER: Male DEXTERITY Right-handed MARITAL STATUS RACE White PRE-HOSPITAL LIVING SETTING 01 - Home (private home/apt. board/care, assisted living, residential, transitional living) PRE-HOSPITAL LIVING WITH Alone ENCOUNTER PHYSICIAN: Dr. Alexi Loza M.D. REFERRING DOCTOR: Dr Prudence Almonte DATE OF ADMISSION: 05/19/2020 16:10 (CDT) REFERRING FACILITY [facility] HOME TYPE AND DETAILS: Type of home: single family house # of levels in the residence: 1 # of steps to enter the residence: no steps but 2 rails to enter residence # of steps within the residence: 0 ONSET DATE: 05/08/2020 PRIMARY DIAGNOSIS-RELATED SURGERIES: L Catheter and PCI Pump HISTORY OF PRESENT ILLNESS (HPI): Pt. is a 70 yo Right-handed white male. He has past medical history significant for DX on MEDIC. On 05/08/2020 he was admitted to [facility] with diagnosis NSTEMI. His impairment category is Cardiac 09 - Cardiac Disorders (09). Pre-morbidly, Pt. was independent/mod-I in Communication and Self-Care; and he had good Transfers Con trol, Social Cognition, and Balance. Currently, he has deficits of Balance, Transfers Control, Endurance, and Sphincter Control. Pt. is now referred to [facility] for acute in-patient rehabilitation in order to maximize patient's functional independence in activities of daily living, strength, ROM, and mobi lity. Patient has realistic goal of being discharged at assistance level 7-Ind to reside at Home with Pt s elf. 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) SOB HTN HLD SOCIAL HISTORY: - Home Living Alone REVIEW OF SYSTEMS: - Gen No Chills Fatigue No Fever - Eyes No Double Vision No itchiness - ENMT No Difficulty Swallowing - CVS No Chest Discomfort No Chest Pain Fatigue No Weight Gain - Resp No Cough No Shortness of Breath - GI Continent No Abdominal Pain No Constipation No Diarrhea - Continent No Kidney Pain No Painful Urination No Urinary Urgency - MSK No Joint Pain No Muscle Cramps No Stiffness - Skin No Itching No Rash No Suspicious Lesions - Neuro Coordination Difficulty No Difficulty with Concentration No Memory Loss No Seizures Weakness - Psych No Anxiety No Depression No HIV Exposure No Persistent Infections No Seasonal Allergies - Endo No Cold/Heat Intolerance No Excessive Hunger No Excessive Thirst No Excessive Urination PHYSICAL EXAM - Gen Alert and awake Lying in bed No apparent distress Oriented to: person, time, and place - Skin Cellulitis in the legs with multiple vertical areas of bruising and bleeding in the legs. No abnormalities - Eyes No abnormalities - ENMT No abnormalities - Neck No abnormalities No cervical adenopathy - CVS RRR - Chest Mildly decreased breath sounds bilaterally. - Resp No wheezing - Abd Obese, soft, nontender - GI + bowel sounds No abnormalities - No abnormalities - Ext Moderate edema in both lower extremities.Cellulitis in the legs with multiple vertical areas of bruis ing and bleeding in the legs. - MSK 4+/5 weakness in both lower extremities. - Neuro No focal deficits - Psych No abnormalities VITAL SIGNS Temperature: 97.4 F SBP/DBP: 135/69 Pulse: 67 Resp: 18 NURSING: - Shower allowing shower ACTIVITIES OOB only with supervision QI SCORES: - Self-Care A. Eating 04-Supervision or touching assistance B. Oral hygiene 04-Supervision or touching assistance C. Toileting hygiene 04-Supervision or touching assistance E. Shower/bathe self 04-Supervision or touching assistance F. Upper body dressing 04-Supervision or touching assistance G. Lower body dressing 04-Supervision or touching assistance H. Putting on/taking off footwear 88-Not attempted due to medical condition or safety concerns - Mobility A. Roll left and right 05-Setup or clean-up assistance B. Sit to lying 04-Supervision or touching assistance C. Lying to sitting on side of bed 04-Supervision or touching assistance D. Sit to stand 04-Supervision or touching assistance E. Chair/qjr-sg-hluet transfer 03-Partial/moderate assistance F. Toilet transfer 03-Partial/moderate assistance G. Car transfer 88-Not attempted due to medical condition or safety concerns I. Walk 10 feet 02-Substantial/maximal assistance J. Walk 50 feet with two turns 88-Not attempted due to medical condition or safety concerns K. Walk 150 feet 88-Not attempted due to medical condition or safety concerns L. Walking 10 feet on uneven surfaces 88-Not attempted due to medical condition or safety concerns M. 1 step (curb) 88-Not attempted due to medical condition or safety concerns N. 4 steps 88-Not attempted due to medical condition or safety concerns O. 12 steps 88-Not attempted due to medical condition or safety concerns P. Picking up object 88-Not attempted due to medical condition or safety concerns R. Wheel 50 feet with two turns 88-Not attempted due to medical condition or safety concerns S. Wheel 150 feet 88-Not attempted due to medical condition or safety concerns - Bladder and Bowel Bladder continence Bowel continence - Endurance Fair - Balance Fair - Safety Awareness Fair CURRENT FUNC. DEFICITS: Self-Care, Mobility, Endurance, Balance, and Safety Awareness MEDICATIONS: - N/A Continue see attached ASSESSMENT: Pt. is a 70 yo Right-handed white male.He has past medical history significant for DX on MEDIC.On he was admitted to [facility] with diagnosis NSTEMI.His impairment category is Card iac 09 - Cardiac Disorders (09).Pre-morbidly, Pt. was independent/mod-I in Communication and Self-Ca re; and he had good Transfers Control, Social Cognition, and Balance.Currently, he has deficits of Ba nadira, Transfers Control, Endurance, and Sphincter Control.Pt. is now referred to [facility] for acute in-patient rehabilitation in order to maximize patient's functional independ ence in activities of daily living, strength, ROM, and mobility.- Rehab Goal Patient has realistic goal of being discharged at assistance level 7-Ind to reside at Home with Pt s elf. - Physical Therapy Gait dysfunction - to improve, our physical therapists will perform initial evaluation of pt's status upon admission and devise an individualized program for Gait Training, and Wheel Chair mobility Inability to transfer - to improve, our physical therapists will perform initial evaluation of pt's s tatus upon admission and devise an individualized program for Bed mobility Need in caregiver upon discharge - to improve, our physical therapists will perform initial evaluatio n of pt's status upon admission and devise an individualized program for Caregiver Training New precaution - to improve, our physical therapists will perform initial evaluation of pt's status u delbert admission and devise an individualized program for Patient precaution education Edema - to improve, our physical therapists will perform initial evaluation of pt's status upon admi ssion and devise an individualized program for Elevation Training, and Lymphedema Therapy Poor balance - to improve, our physical therapists will perform initial evaluation of pt's status upo n admission and devise an individualized program for Balance Training Poor endurance - to improve, our physical therapists will perform initial evaluation of pt's status u delbert admission and devise an individualized program for Endurance Training Weakness - to improve, our physical therapists will perform initial evaluation of pt's status upon ad mission and devise an individualized program for Aquatic Therapy, Neuromuscular Reeducation, and Stre ngthening Achieving independence - to improve, our physical therapists will perform initial evaluation of pt's status upon admission and devise an individualized program for Community Reintegration Activities - Occupational Therapy Need for ambulatory care coordinator - to improve, our occupation therapists will perform initial evaluation of pt's s tatus upon admission and devise an individualized program for Caregiver Training Weakness - to improve, our occupation therapists will perform initial evaluation of pt's status upon admission and devise an individualized program for Aquatic Therapy, Balance, Endurance, UE ROM, and U E strengthening MEDICAL PLAN: - Diet Type Start Regular - Diet - Liquid Texture Start Regular - Tube Feed Start N/A - N/A Continue see attached - Other See attached MAR (Medication Administration Record) - Diet - Solid Texture Regular - Shower shower DISCHARGE PLAN: - Estimated Length of Stay (days) 10. - Consensus on plan Discharge plan has been discussed with primary caregiver. Patient/Family is in agreement with the yamila n. Primary caregiver is in agreement with the plan. - Patient/Family Goals Return home independently. - Planned Living Setting Upon Discharge Home, to live alone. Transitional Living. Primary caregiver: Pt self. SIGNATURE PANEL: (CDT)
--- NOTE | 2020-05-20 13:47 | PAPE ---
POST ADMISSION PHYSICIAN EVALUATION PATIENT: [facility] MR# [id number] REFERRING DOCTOR Dr Prudence Almonte EVALUATION DATE AND TIME 05/20/2020 13:46 (CDT) NAME Mason Pride DATE OF 1950 AGE 70 PHONE ( SSN# [id number] GENDER male EVALUATING PHYSICIAN Dr. Alexi Loza M.D. ADMISSION DIAGNOSIS: NSTEMI ONSET DATE 05/08/2020 POST-ADMISSION FUNCTIONAL/MEDICAL STATUS: - Bladder Same accident frequency: UNK - No information - Bowel Same accident frequency: UNK - No information - Walking Same score based on distance walked: 0(N/A) - Wheelchair Same score based on distance traveled: 0(N/A) STATUS CHANGE EVALUATION: No change in Functional or Medical Status is identified compared with Pre-Admission screening. PATIENT NEEDS CLOSE MEDICAL SUPERVISION BY A REHABILITATION PHYSICIAN FOR: Coordination of Treatment Team Wound Care PATIENT REQUIRES 24X7 REHAB NURSING FOR MEDICAL AND FUNCTIONAL MGT. OF THE FOLLOWING DEFICITS: Disease Management Medication Management Patient/Family Education Providing Safe Environment Skin Integrity PATIENT REQUIRES INTENSIVE, COORDINATED INTERDISCIPLINARY APPROACH TO REHAB: Arranging Home Equipment/Services Discharge Planning Family Intervention/Training Registered Associate/Case Management LIST OF IDENTIFIED AND POTENTIAL PROBLEMS: Alteration in leisure activities Bladder, Incontinence Bowel, Incontinence Infection, Actual or Potential Mobility Impaired Pain, Alteration in Comfort Self Care Deficit Skin Integrity, Actual or Potential Urinary Tract Infection (UTI), Actual or Potential INTERVENTIONS - Atrial Fibrillation Anticoagulation. VS. Medications. - Nicotine Nicotine Dependancy. - Hypertension PATIENT COULD BE AT RISK FOR COMPLICATIONS FROM ADVERSE MEDICAL CONDITIONS DUE TO HIS/HER COMORBIDITI ES AND THE RIGORS OF THE INTENSIVE REHABILLITATION PROGRAM. METHODS OR INTERVENTIONS TO AVOID COMPLIC ATIONS INCLUDE: - Bleeding Assess lab values and manage abnormalities. Nursing to teach precautions for anti-coagulation therapy . Wound to be assessed every shift. - Infection Clinical staff to assess and manage the signs and symptoms of infection including fever, redness, war mth, etc. - Urinary Tract Infection - Falls Patient will be evaluated for Fall Precautions and will be placed on Fall Precautions as indicated pe r protocol. - Skin Breakdown Nursing will assess skin daily using assessment tool and will place on Skin Breakdown Precautions as indicated per protocol. - Pain Clinical staff may employ non-medication methods such as massage, distraction, decrease stimulus, etc . as needed. Clinical staff will assess patient's pain level every shift per protocol to assess and e nsure pain management effectiveness. Medications will be given and the pain level re-assessed. PRELIMINARY PLAN OF CARE: - Physical Therapy Patient needs Physical Therapy for a daily minimum of 1.5 hours at least 5 out of 7 days, to improve: Mobility, Strengthening, Transfers, Stretching, ROM, Endurance, Ability to manage stairs, Gait, and Balance. - Speech Therapy Patient needs Speech Therapy for a daily minimum of 0.5 hours at least 5 out of 7 days, to improve: S wallowing, Cognition, Language Skills, and Compensatory Strategies. - Rehabilitation Nursing Patient requires 24x7 Rehabilitation Nursing for: Pain Issues, Identifying and preventing risk factor s, Monitoring and reporting current medical conditions, Assisting with ambulation and transfer, Karli ting with all ADL-s, Teaching patients about disease process and medications, Family teaching, Provid ing safe environment, Bowel and Bladder Issues, Skin Integrity, and Medication Management. Patient needs Registered Associate and/or Case Management for: Discharge Planning, Arranging Home Equipmen t or Services, and Family Interventions. - Dietary and Nutrition Services Patient needs Dietary and Nutrition Services for: Adequate Nutrition, Nutritional Supplements, and Nu tritional Education. - Occupational Therapy Patient needs Occupational Therapy for a daily minimum of 1.5 hours at least 5 out of 7 days, to impr ove Activities of Daily Living, including: Eating, Grooming, Bathing, Dressing, Toileting, Toilet Tra nsfers, Community Reintegration, Higher functional activities, Adaptive Equipment, Splinting, Househo ld Tasks, and Other activities as determined. QI SCORES: - Self-Care A. Eating 04-Supervision or touching assistance B. Oral hygiene 04-Supervision or touching assistance C. Toileting hygiene 04-Supervision or touching assistance E. Shower/bathe self 04-Supervision or touching assistance F. Upper body dressing 04-Supervision or touching assistance G. Lower body dressing 04-Supervision or touching assistance H. Putting on/taking off footwear 88-Not attempted due to medical condition or safety concerns - Mobility A. Roll left and right 05-Setup or clean-up assistance B. Sit to lying 04-Supervision or touching assistance C. Lying to sitting on side of bed 04-Supervision or touching assistance D. Sit to stand 04-Supervision or touching assistance E. Chair/nsb-pj-tqfsy transfer 03-Partial/moderate assistance F. Toilet transfer 03-Partial/moderate assistance G. Car transfer 88-Not attempted due to medical condition or safety concerns I. Walk 10 feet 02-Substantial/maximal assistance J. Walk 50 feet with two turns 88-Not attempted due to medical condition or safety concerns K. Walk 150 feet 88-Not attempted due to medical condition or safety concerns L. Walking 10 feet on uneven surfaces 88-Not attempted due to medical condition or safety concerns M. 1 step (curb) 88-Not attempted due to medical condition or safety concerns N. 4 steps 88-Not attempted due to medical condition or safety concerns O. 12 steps 88-Not attempted due to medical condition or safety concerns P. Picking up object 88-Not attempted due to medical condition or safety concerns R. Wheel 50 feet with two turns 88-Not attempted due to medical condition or safety concerns S. Wheel 150 feet 88-Not attempted due to medical condition or safety concerns - Bladder and Bowel Bladder continence Bowel continence - Endurance Fair - Balance Fair - Safety Awareness Fair POTENTIAL FUNCTIONAL GOALS FOR PATIENT TO ACHIEVE BY DISCHARGE: - Safety Precaution Patient will remain free from falls or injury at time of discharge. - Bed Mobility Patient will perform bed mobility at 4-[place] level of assistance. - Transfers Patient will complete transfers from bed to chair at 4-[place] level of assistance. - Mobility Patient will ambulate 150 ft with 4-[place] level of assistance with RW. PATIENT REHAB POTENTIAL Joshua Pride is able and expected to receive 3 hours of individualized therapy daily on at least 5 of e very 7 days Joshua Pride's prognosis for significant practical improvement within a reasonable period of time appea rs Good Expected level of measurable improvement will be of a practical value to Joshua Pride's functional capa city or adaptations to impairments Has a viable Discharge Plan Medically appropriate; condition is sufficiently stable to participate in intensive rehab program DISCHARGE PLAN: - Estimated Length of Stay (days) 10. - Consensus on plan Discharge plan has been discussed with primary caregiver. Patient/Family is in agreement with the yamila n. Primary caregiver is in agreement with the plan. - Patient/Family Goals Return home independently. - Planned Living Setting Upon Discharge Home, to live alone. Transitional Living. Primary caregiver: Pt self. CONCLUSION ON REHABILITATION NECESSITY: I have evaluated patient's pre-admission functional status and, comparing it to the patient's post-ad mission functional status now, I conclude that the pre-admission assessment was accurate. Patient's c ondition on admission supports the medical necessity of admission to IRF. It is safe to proceed with patient's therapy program. SIGNATURE PANEL: (CDT)
[2020-05-20] MEDS ORDERED: DUPILUMAB 300 MG SQ SCH (14:00)
[2020-05-20] MEDS: CRANBERRY FRUIT EXTRACT 200 MG CAP PO SCH ×2 (14:05→19:20)
[2020-05-20] MEDS: DULERA 100/5 (MOMETASONE/FORMOTEROL) INHALER IH SCH (19:19)
[2020-05-20] MEDS: CLOBETASOL 0.05 % CREAM 15GM TOP SCH (19:19)
[2020-05-20] MEDS: ATORVASTATIN 80 MG TAB PO SCH (19:20)
[2020-05-20] MEDS: ALPRAZOLAM 0.25 MG TABLET PO PRN (19:20)
[2020-05-20] MEDS ORDERED: FORMOTEROL IH SCH (20:00)
[2020-05-20] MEDS ORDERED: BUDESONIDE IH SCH (20:00)
[2020-05-20] MEDS ORDERED: CLOBETASOL TOP SCH (20:00)
[2020-05-21] MEDS: METOPROLOL XL 25 MG TAB PO SCH ×2 (05:16→17:13)
[2020-05-21] MEDS: DULERA 100/5 (MOMETASONE/FORMOTEROL) INHALER IH SCH ×2 (07:52→20:33)
[2020-05-21] MEDS: CLOBETASOL 0.05 % CREAM 15GM TOP SCH ×2 (07:53→20:00)
[2020-05-21] MEDS: CRANBERRY FRUIT EXTRACT 200 MG CAP PO SCH ×2 (07:57→20:32)
[2020-05-21] MEDS: AMIODARONE HCL 200 MG TAB PO SCH ×2 (07:58→20:33)
[2020-05-21] MEDS: CLOPIDOGREL 75 MG TABLET PO SCH (07:58)
[2020-05-21] MEDS: ASPIRIN 81 MG CHEWABLE TABLET PO SCH (07:58)
[2020-05-21] MEDS: TORSEMIDE 20 MG TAB PO SCH (07:58)
[2020-05-21] MEDS: FOLIC ACID 1 MG TABLET PO SCH (07:58)
[2020-05-21] MEDS: ACETAMINOPHEN 500 MG TAB PO PRN (07:59)
[2020-05-21] MEDS: BUPROPION HCL XL 150 MG TAB PO SCH (08:00)
[2020-05-21] MEDS: APIXABAN 2.5 MG TABLET PO SCH ×2 (08:01→20:33)
[2020-05-21] MEDS: BUPROPRION HCL S.R. 150MG TAB PO SCH (11:04)
[2020-05-21] MEDS: IPRATROPIUM BROM 0.5MG/2.5ML IH PRN ×2 (13:15→20:45)
[2020-05-21] MEDS: ALBUTEROL 2.5 MG/3 ML NEB SOL IH PRN ×2 (13:15→20:45)
--- NOTE | 2020-05-21 18:10 | R.PN ---
PROGRESS NOTES ENCOUNTER DATE AND TIME: 05/21/2020 16:47 (CDT) NAME Mason Pride DATE OF : 1950 DATE OF ADMISSION: 05/19/2020 16:10 (CDT) NSTEMICHIEF COMPLAINT: Debility and NSTEMI SUBJECTIVE: Pt denied any Shortness of Breath. Pt denied any depression. WBC 10.9, Hgb 12.7, PLt 503, Solar Installation Supervisor 1.35, prealbumin 18.2, UA 2+ esterase, WBC 20-50 and bacteria >50. Bed mobility done with independence. Ambulated 400' with standby assistance using a rolling walker. S elf-propelled wheelchair 500' with independence. VITAL SIGNS Temperature: 97.9 F SBP/DBP: 116/63 Pulse: 62 Resp: 16 MEDICATION ALLERGIES: No Known Drug Allergies (NKDA) ENVIRONMENTAL ALLERGIES: None Known - Substance Allergies None Known - Other Allergies None Known NURSING: - Shower allowing shower ACTIVITIES OOB only with supervision THERAPIES: - Dietary and Nutrition Adequate Nutrition. Nutritional Education. Nutritional Supplements. PHYSICAL EXAM - Gen Alert and awake Lying in bed No apparent distress Oriented to: person, time, and place - Skin Cellulitis in the legs with multiple vertical areas of bruising and bleeding in the legs. No abnormalities - Eyes No abnormalities - ENMT No abnormalities - Neck No abnormalities No cervical adenopathy - CVS RRR - Chest Mildly decreased breath sounds bilaterally. - Resp No wheezing - Abd Obese, soft, nontender - GI + bowel sounds No abnormalities - No abnormalities - Ext Moderate edema in both lower extremities.Cellulitis in the legs with multiple vertical areas of bruis ing and bleeding in the legs. - MSK 4+/5 weakness in both lower extremities. - Neuro No focal deficits - Psych No abnormalities ASSESSMENT: Pt. is a 70 yo Right-handed white male.He has past medical history significant for DX on MEDIC.On he was admitted to [facility] with diagnosis NSTEMI.His impairment category is Card iac 09 - Cardiac Disorders (09).Pre-morbidly, Pt. was independent/mod-I in Communication and Self-Ca re; and he had good Transfers Control, Social Cognition, and Balance.Currently, he has deficits of Ba nadira, Transfers Control, Endurance, and Sphincter Control.Pt. is now referred to [facility] for acute in-patient rehabilitation in order to maximize patient's functional independ ence in activities of daily living, strength, ROM, and mobility.- Rehab Goal Patient has realistic goal of being discharged at assistance level 7-Ind to reside at Home with Pt s elf. MDM/PLAN: - Physical Therapy Gait dysfunction - to improve, our physical therapists will perform initial evaluation of pt's statu s upon admission and devise an individualized program for Gait Training, and Wheel Chair mobility Inability to transfer - to improve, our physical therapists will perform initial evaluation of pt's status upon admission and devise an individualized program for Bed mobility Need in caregiver upon discharge - to improve, our physical therapists will perform initial evaluati on of pt's status upon admission and devise an individualized program for Caregiver Training New precaution - to improve, our physical therapists will perform initial evaluation of pt's status upon admission and devise an individualized program for Patient precaution education Edema - to improve, our physical therapists will perform initial evaluation of pt's status upon admis darío and devise an individualized program for Elevation Training, and Lymphedema Therapy Poor balance - to improve, our physical therapists will perform initial evaluation of pt's status up on admission and devise an individualized program for Balance Training Poor endurance - to improve, our physical therapists will perform initial evaluation of pt's status upon admission and devise an individualized program for Endurance Training Weakness - to improve, our physical therapists will perform initial evaluation of pt's status upon a dmission and devise an individualized program for Aquatic Therapy, Neuromuscular Reeducation, and Str engthening Achieving independence - to improve, our physical therapists will perform initial evaluation of pt's status upon admission and devise an individualized program for Community Reintegration Activities - Occupational Therapy Need for healthcare prof - to improve, our occupation therapists will perform initial evaluation of pt's status upon admission and devise an individualized program for Caregiver Training Weakness - to improve, our occupation therapists will perform initial evaluation of pt's status upon admission and devise an individualized program for Aquatic Therapy, Balance, Endurance, UE ROM, and UE strengthening - N/A Continue see attached - Diet Type Continue Regular - Diet - Liquid Texture Continue Regular - Tube Feed Continue N/A - Other See attached MAR (Medication Administration Record) - Diet - Solid Texture Continue Regular - Shower allowing shower FUNCTIONAL STATUS: UPDATED AT WEEKLY TEAM CONFERENCE - Bladder Same accident frequency: 0-UNK - No information - Bowel Same accident frequency: 0-UNK - No information - Walking Same score based on distance walked: 0(N/A) - Wheelchair Same score based on distance traveled: 0(N/A) FUNCTIONAL STATUS: - Self-Care A. Eating Ind B. Grooming Alena C. Bathing [place] D. Dressing - Upper [place] E. Dressing - Lower modA F. Toileting [place] - Sphincter Control G. Bladder control sup H. Bowel control sup - Transfers Control I. Bed/Chair/Wheelchair [place] J. Toilet [place] K. Tub/Shower sup - Locomotion L. Walk/Wheelchair (B) sup M. Stairs ADNO - Communication N. Comprehension (B) Alena O. Expression (B) Alena - Social Cognition P. Social Interaction Ind Q. Problem Solving Ind R. Memory Ind - Endurance Fair - Balance Fair - Safety Awareness Good QI SCORES: - Self-Care A. Eating 04-Supervision or touching assistance B. Oral hygiene 04-Supervision or touching assistance C. Toileting hygiene 04-Supervision or touching assistance E. Shower/bathe self 04-Supervision or touching assistance F. Upper body dressing 04-Supervision or touching assistance G. Lower body dressing 04-Supervision or touching assistance H. Putting on/taking off footwear 88-Not attempted due to medical condition or safety concerns - Mobility A. Roll left and right 05-Setup or clean-up assistance B. Sit to lying 04-Supervision or touching assistance C. Lying to sitting on side of bed 04-Supervision or touching assistance D. Sit to stand 04-Supervision or touching assistance E. Chair/pve-wg-hwaxu transfer 03-Partial/moderate assistance F. Toilet transfer 03-Partial/moderate assistance G. Car transfer 88-Not attempted due to medical condition or safety concerns I. Walk 10 feet 02-Substantial/maximal assistance J. Walk 50 feet with two turns 88-Not attempted due to medical condition or safety concerns K. Walk 150 feet 88-Not attempted due to medical condition or safety concerns L. Walking 10 feet on uneven surfaces 88-Not attempted due to medical condition or safety concerns M. 1 step (curb) 88-Not attempted due to medical condition or safety concerns N. 4 steps 88-Not attempted due to medical condition or safety concerns O. 12 steps 88-Not attempted due to medical condition or safety concerns P. Picking up object 88-Not attempted due to medical condition or safety concerns R. Wheel 50 feet with two turns 88-Not attempted due to medical condition or safety concerns S. Wheel 150 feet 88-Not attempted due to medical condition or safety concerns - Bladder and Bowel Bladder continence Bowel continence - Endurance Fair - Balance Fair - Safety Awareness Fair CURRENT [facility]. DEFICITS: Self-Care, Mobility, Endurance, Balance, and Safety Awareness SIGNATURE PANEL: (CDT)
[2020-05-21] MEDS: ALPRAZOLAM 0.25 MG TABLET PO PRN (20:32)
[2020-05-21] MEDS: ATORVASTATIN 80 MG TAB PO SCH (20:33)
[2020-05-22] MEDS: METOPROLOL XL 25 MG TAB PO SCH ×2 (05:17→17:16)
[2020-05-22] MEDS: CRANBERRY FRUIT EXTRACT 200 MG CAP PO SCH ×2 (08:22→19:16)
[2020-05-22] MEDS: APIXABAN 2.5 MG TABLET PO SCH ×2 (08:22→19:16)
[2020-05-22] MEDS: AMIODARONE HCL 200 MG TAB PO SCH ×2 (08:22→19:17)
[2020-05-22] MEDS: CLOPIDOGREL 75 MG TABLET PO SCH (08:23)
[2020-05-22] MEDS: FOLIC ACID 1 MG TABLET PO SCH (08:23)
[2020-05-22] MEDS: TORSEMIDE 20 MG TAB PO SCH (08:23)
[2020-05-22] MEDS: ASPIRIN 81 MG CHEWABLE TABLET PO SCH (08:24)
[2020-05-22] MEDS: DULERA 100/5 (MOMETASONE/FORMOTEROL) INHALER IH SCH ×2 (08:24→19:16)
[2020-05-22] MEDS: CLOBETASOL 0.05 % CREAM 15GM TOP SCH ×2 (08:24→19:17)
[2020-05-22] MEDS: BUPROPRION HCL S.R. 150MG TAB PO SCH (08:25)
[2020-05-22] MEDS: ALPRAZOLAM 0.25 MG TABLET PO PRN ×2 (10:08→20:46)
--- NOTE | 2020-05-22 12:07 | FAST ---
OT QI REPORT FORM ENCOUNTER DATE AND TIME: 05/22/2020 08:00 (CDT) NAME Mason Pride DATE OF : 1950 DATE OF ADMISSION: 05/19/2020 16:10 (CDT) PHONE: ( AGE: 70 SSN# [id number] GENDER: Male ENCOUNTER PHYSICIAN: Dr. Alexi Loza M.D. ADMISSION DIAGNOSIS: - Cardiac 09 - Cardiac Disorders () NSTEMI. EATING: Not assessed/no information CODE: - ORAL HYGIENE: ORAL HYGIENE - STEP 1: Does the patient complete the activity by him/herself with no assistance (physical, verbal/nonverbal cueing, setup/clean-up)? Yes. 1. [id number] ADMISSION PERFORMANCE: Independent CODE: 06 TOILETING HYGIENE: Not assessed/no information CODE: - BATHING: SHOWER/BATHE SELF - STEP 1: Does the patient complete the activity by him/herself with no assistance (physical, verbal/nonverbal cueing, setup/clean-up)? No. SHOWER/BATHE SELF - STEP 2: Does the patient need only setup/clean-up assistance from one helper? No. SHOWER/BATHE SELF - STEP 3: Does the patient need only verbal/nonverbal cueing or touching/steadying/contact guard assistance fro m one helper? Yes. 1. [id number] ADMISSION PERFORMANCE: Supervision or touching assistance CODE: 04 DRESSING - UPPER BODY: Not assessed/no information CODE: - DRESSING - LOWER BODY: DRESSING - LOWER BODY - STEP 1: Does the patient complete the activity by him/herself with no assistance (physical, verbal/nonverbal cueing, setup/clean-up)? No. DRESSING - LOWER BODY - STEP 2: Does the patient need only setup/clean-up assistance from one helper? No. DRESSING - LOWER BODY - STEP 3: Does the patient need only verbal/nonverbal cueing or touching/steadying/contact guard assistance fro m one helper? Yes. 1. [id number] ADMISSION PERFORMANCE: Supervision or touching assistance CODE: 04 PUTTING ON/TAKING OFF FOOTWEAR: FOOTWEAR - STEP 1: Does the patient complete the activity by him/herself with no assistance (physical, verbal/nonverbal cueing, setup/clean-up)? No. FOOTWEAR - STEP 2: Does the patient need only setup/clean-up assistance from one helper? Yes. 1. [id number] ADMISSION PERFORMANCE: Setup or clean-up assistance CODE: 05 DOES THE PATIENT USE A WHEELCHAIR/SCOOTER? CODE: EXPR INDICATE THE TYPE OF WHEELCHAIR/SCOOTER USED: CODE: EXPR INDICATE THE TYPE OF WHEELCHAIR/SCOOTER USED: CODE: EXPR BLADDER AND BOWEL: CODE: EXPR CODE: EXPR SIGNATURE PANEL: The following modified sections: 1. [id number] Admission Performance, 1. [id number] Admission Performance, 1. [id number] Admission Performance, 1. [id number] Admission Performance were [electronically] signed by VIRI Cho on WedMay 22 2020 12:05:54 GMT-0500 (Central Daylight Time)
--- NOTE | 2020-05-22 12:20 | P.CNS ---
Date of Consult: 05/22/20 Reason for Consult: nail care Requesting Physician: Alexi Loza Chief Complaint: Painful toenails Allergies No Known Allergies Allergy (Verified 05/19/20 19:44) Home Medications: Acetaminophen [Tylenol Extra Strength] 1,000 mg PO Q8H PRN 05/19/20 Alprazolam [Xanax] 0.25 mg PO DAILY PRN 05/19/20 Amiodarone HCl [Pacerone] 100 mg PO BID 05/19/20 Apixaban [Eliquis] 2.5 mg PO BID 05/19/20 Aspirin Chewable [Aspirin Chewable*] 81 mg PO DAILY 05/19/20 Atorvastatin Calcium [Lipitor] 80 mg PO BEDTIME 05/19/20 Bupropion *Xl* [Wellbutrin XL] 450 mg PO DAILY 05/19/20 Clobetasol [Temovate Cream 0.05%*] 1 appl TOP BID 05/19/20 Clopidogrel Bisulfate [Plavix] 75 mg PO DAILY 05/19/20 Dupilumab [Dupixent Syringe] 300 mg SQ SEECOM 05/19/20 Folic Acid 1 mg PO DAILY 05/19/20 Metoprolol Succinate [Toprol Xl] 25 mg PO DAILY 05/19/20 Torsemide 10 mg PO DAILY 05/19/20 - Past Medical/Surgical History Diabetic: No -: COPD -: CAD -: [place] -: Eczema -: cardiac cath 04/2020 - Social History Alcohol use: Yes CD- Drugs: No Caffeine use: Yes Place of Residence: Home Review of Systems 10-point ROS is otherwise unremarkable Physical Examination Temp Pulse Resp BP Pulse Ox 97.2 F 62 18 118/68 93 05/22/20 07:19 05/22/20 08:23 05/22/20 07:19 05/22/20 08:23 05/22/20 07:19 General: Alert, In no apparent distress, Oriented x3 Cardiovascular: No edema, Abnormal pulses (nonpalpable pedal pulses bilateral) Capillary refill: >2 Seconds Musculoskeletal: No clubbing, No swelling, No contractures, No erythema, No tenderness, No warmth Integumentary: Other (thickened hypertrophic toenails with subungual debris x 10. Skin is cool to touch, no hair growth noted) Neurological: Abnormal sensation - Problems (1) Tinea unguium Current Visit: Yes Status: Acute (2) Generalized atherosclerosis Current Visit: Yes Status: Acute Conclusions/Impression: Debridement of nails at bedside. Patient can follow up with Dr. Rossi in [place] upon discharge
[2020-05-22] MEDS: ALBUTEROL 2.5 MG/3 ML NEB SOL IH PRN (17:37)
[2020-05-22] MEDS: IPRATROPIUM BROM 0.5MG/2.5ML IH PRN (17:37)
--- NOTE | 2020-05-22 17:41 | R.PN ---
PROGRESS NOTES ENCOUNTER DATE AND TIME: 05/22/2020 17:36 (CDT) NAME Mason Pride DATE OF : 1950 DATE OF ADMISSION: 05/19/2020 16:10 (CDT) NSTEMICHIEF COMPLAINT: Debility and NSTEMI SUBJECTIVE: Pt denied any Shortness of Breath. Pt denied any depression. WBC 10.9, Hgb 12.7, PLt 503, Dye Machine Operator 1.35, prealbumin 18.2, UA 2+ esterase, WBC 20-50 and bacteria >50, c ultures show 3+ gram negative rods, sensitivity is pending. Bed mobility done with independence. Ambulated 500' with standby assistance using a rolling walker. S elf-propelled wheelchair 500' with independence.She was very impulsive during therapy. VITAL SIGNS Temperature: 97.2 F SBP/DBP: 129/70 Pulse: 70 Resp: 16 MEDICATION ALLERGIES: No Known Drug Allergies (NKDA) ENVIRONMENTAL ALLERGIES: None Known - Substance Allergies None Known - Other Allergies None Known NURSING: - Shower allowing shower ACTIVITIES OOB only with supervision THERAPIES: - Dietary and Nutrition Adequate Nutrition. Nutritional Education. Nutritional Supplements. PHYSICAL EXAM - Gen Alert and awake Lying in bed No apparent distress Oriented to: person, time, and place - Skin Cellulitis in the legs with multiple vertical areas of bruising and bleeding in the legs. No abnormalities - Eyes No abnormalities - ENMT No abnormalities - Neck No abnormalities No cervical adenopathy - CVS RRR - Chest Mildly decreased breath sounds bilaterally. - Resp No wheezing - Abd Obese, soft, nontender - GI + bowel sounds No abnormalities - No abnormalities - Ext Moderate edema in both lower extremities.Cellulitis in the legs with multiple vertical areas of bruis ing and bleeding in the legs. - MSK 4+/5 weakness in both lower extremities. - Neuro No focal deficits - Psych No abnormalities ASSESSMENT: Pt. is a 70 yo Right-handed white male.He has past medical history significant for DX on MEDIC.On he was admitted to [facility] with diagnosis NSTEMI.His impairment category is Card iac 09 - Cardiac Disorders (09).Pre-morbidly, Pt. was independent/mod-I in Communication and Self-Ca re; and he had good Transfers Control, Social Cognition, and Balance.Currently, he has deficits of Ba nadira, Transfers Control, Endurance, and Sphincter Control.Pt. is now referred to [facility] for acute in-patient rehabilitation in order to maximize patient's functional independ ence in activities of daily living, strength, ROM, and mobility.- Rehab Goal Patient has realistic goal of being discharged at assistance level 7-Ind to reside at Home with Pt s elf. MDM/PLAN: - Physical Therapy Gait dysfunction - to improve, our physical therapists will perform initial evaluation of pt's statu s upon admission and devise an individualized program for Gait Training, and Wheel Chair mobility Inability to transfer - to improve, our physical therapists will perform initial evaluation of pt's status upon admission and devise an individualized program for Bed mobility Need in caregiver upon discharge - to improve, our physical therapists will perform initial evaluati on of pt's status upon admission and devise an individualized program for Caregiver Training New precaution - to improve, our physical therapists will perform initial evaluation of pt's status upon admission and devise an individualized program for Patient precaution education Edema - to improve, our physical therapists will perform initial evaluation of pt's status upon admi ssion and devise an individualized program for Elevation Training, and Lymphedema Therapy Poor balance - to improve, our physical therapists will perform initial evaluation of pt's status up on admission and devise an individualized program for Balance Training Poor endurance - to improve, our physical therapists will perform initial evaluation of pt's status upon admission and devise an individualized program for Endurance Training Weakness - to improve, our physical therapists will perform initial evaluation of pt's status upon a dmission and devise an individualized program for Aquatic Therapy, Neuromuscular Reeducation, and Str engthening Achieving independence - to improve, our physical therapists will perform initial evaluation of pt's status upon admission and devise an individualized program for Community Reintegration Activities - Occupational Therapy Need for urgent care nurse practitioner - to improve, our occupation therapists will perform initial evaluation of pt's status upon admission and devise an individualized program for Caregiver Training Weakness - to improve, our occupation therapists will perform initial evaluation of pt's status upon admission and devise an individualized program for Aquatic Therapy, Balance, Endurance, UE ROM, and UE strengthening - N/A Continue see attached - Diet Type Continue Regular - Diet - Liquid Texture Continue Regular - Tube Feed Continue N/A - Other See attached MAR (Medication Administration Record) - Diet - Solid Texture Continue Regular - Shower allowing shower FUNCTIONAL STATUS: UPDATED AT WEEKLY TEAM CONFERENCE - Bladder Same accident frequency: 0-UNK - No information - Bowel Same accident frequency: 0-UNK - No information - Walking Same score based on distance walked: 0(N/A) - Wheelchair Same score based on distance traveled: 0(N/A) FUNCTIONAL STATUS: - Self-Care A. Eating Ind B. Grooming Alena C. Bathing [place] D. Dressing - Upper [place] E. Dressing - Lower modA F. Toileting [place] - Sphincter Control G. Bladder control sup H. Bowel control sup - Transfers Control I. Bed/Chair/Wheelchair [place] J. Toilet [place] K. Tub/Shower sup - Locomotion L. Walk/Wheelchair (B) sup M. Stairs ADNO - Communication N. Comprehension (B) Alena O. Expression (B) Alena - Social Cognition P. Social Interaction Ind Q. Problem Solving Ind R. Memory Ind - Endurance Fair - Balance Fair - Safety Awareness Good QI SCORES: - Self-Care A. Eating 04-Supervision or touching assistance B. Oral hygiene 04-Supervision or touching assistance C. Toileting hygiene 04-Supervision or touching assistance E. Shower/bathe self 04-Supervision or touching assistance F. Upper body dressing 04-Supervision or touching assistance G. Lower body dressing 04-Supervision or touching assistance H. Putting on/taking off footwear 88-Not attempted due to medical condition or safety concerns - Mobility A. Roll left and right 05-Setup or clean-up assistance B. Sit to lying 04-Supervision or touching assistance C. Lying to sitting on side of bed 04-Supervision or touching assistance D. Sit to stand 04-Supervision or touching assistance E. Chair/[id number] transfer 03-Partial/moderate assistance F. Toilet transfer 03-Partial/moderate assistance G. Car transfer 88-Not attempted due to medical condition or safety concerns I. Walk 10 feet 02-Substantial/maximal assistance J. Walk 50 feet with two turns 88-Not attempted due to medical condition or safety concerns K. Walk 150 feet 88-Not attempted due to medical condition or safety concerns L. Walking 10 feet on uneven surfaces 88-Not attempted due to medical condition or safety concerns M. 1 step (curb) 88-Not attempted due to medical condition or safety concerns N. 4 steps 88-Not attempted due to medical condition or safety concerns O. 12 steps 88-Not attempted due to medical condition or safety concerns P. Picking up object 88-Not attempted due to medical condition or safety concerns R. Wheel 50 feet with two turns 88-Not attempted due to medical condition or safety concerns S. Wheel 150 feet 88-Not attempted due to medical condition or safety concerns - Bladder and Bowel Bladder continence Bowel continence - Endurance Fair - Balance Fair - Safety Awareness Fair CURRENT [facility]. DEFICITS: Self-Care, Mobility, Endurance, Balance, and Safety Awareness SIGNATURE PANEL: (CDT)
--- NOTE | 2020-05-22 18:13 | RAD REPORT ---
EXAM DESCRIPTION: Ovidio Single View05/22/2020 5:50 pm CLINICAL HISTORY: Wheezing COMPARISON: none FINDINGS: [id number] bilateral pulmonary opacities. Heart is mildly enlarged IMPRESSION: These findings probably represent CHF
[2020-05-22] MEDS: ATORVASTATIN 80 MG TAB PO SCH (20:03)
[2020-05-23] MEDS: ALPRAZOLAM 0.25 MG TABLET PO PRN ×3 (02:55→18:07)
[2020-05-23] MEDS: IPRATROPIUM BROM 0.5MG/2.5ML IH PRN ×3 (03:00→21:55)
[2020-05-23] MEDS: ALBUTEROL 2.5 MG/3 ML NEB SOL IH PRN ×3 (03:00→21:55)
[2020-05-23] MEDS: METOPROLOL XL 25 MG TAB PO SCH ×2 (04:59→18:00)
[2020-05-23 06:43] LABS: Absolute Lymphocytes (CBC) 0.6 K/uL (0.7-4.9); Hematocrit 37.2 % (39.6-49.0); Lymphocytes % 5.3 % (15.3-44.8); MPV 7.9 fL (7.6-11.3)
[2020-05-23 07:06] LABS: Albumin 3.1 g/dL (3.4-5.0); Magnesium 2.6 mg/dL (1.8-2.4); Prealbumin 21.8 mg/dL (20-40)
[2020-05-23] MEDS: CRANBERRY FRUIT EXTRACT 200 MG CAP PO SCH ×2 (07:40→19:44)
[2020-05-23] MEDS: CLOPIDOGREL 75 MG TABLET PO SCH (07:40)
[2020-05-23] MEDS: BUPROPRION HCL S.R. 150MG TAB PO SCH (07:40)
[2020-05-23] MEDS: APIXABAN 2.5 MG TABLET PO SCH ×2 (07:40→19:44)
[2020-05-23] MEDS: FOLIC ACID 1 MG TABLET PO SCH (07:41)
[2020-05-23] MEDS: ASPIRIN 81 MG CHEWABLE TABLET PO SCH (07:41)
[2020-05-23] MEDS: TORSEMIDE 20 MG TAB PO SCH ×2 (07:41→19:44)
[2020-05-23] MEDS: AMIODARONE HCL 200 MG TAB PO SCH ×2 (07:42→19:44)
[2020-05-23] MEDS: DULERA 100/5 (MOMETASONE/FORMOTEROL) INHALER IH SCH ×2 (07:43→19:43)
[2020-05-23] MEDS: CLOBETASOL 0.05 % CREAM 15GM TOP SCH ×2 (07:44→19:43)
[2020-05-23] MEDS ORDERED: POLYETHYL GLY 3350 17 GM/DOSE PO PRN (15:00)
[2020-05-23] MEDS ORDERED: DOCUSATE NA/SENNA CONC 1 TAB PO PRN (15:01)
--- NOTE | 2020-05-23 17:39 | R.PN ---
PROGRESS NOTES ENCOUNTER DATE AND TIME: 05/23/2020 17:35 (CDT) NAME Mason Pride DATE OF : 1950 DATE OF ADMISSION: 05/19/2020 16:10 (CDT) NSTEMICHIEF COMPLAINT: Debility and NSTEMI SUBJECTIVE: Pt denied any Shortness of Breath. Pt denied any depression. 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 Bed mobility done with independence. Ambulated 500' with standby assistance using a rolling walker. S elf-propelled wheelchair 500' with independence. She was impulsive during therapy. VITAL SIGNS Temperature: 98.0 F SBP/DBP: 127/73 Pulse: 66 Resp: 16 MEDICATION ALLERGIES: No Known Drug Allergies (NKDA) ENVIRONMENTAL ALLERGIES: None Known - Substance Allergies None Known - Other Allergies None Known NURSING: - Shower allowing shower ACTIVITIES OOB only with supervision THERAPIES: - Dietary and Nutrition Adequate Nutrition. Nutritional Education. Nutritional Supplements. PHYSICAL EXAM - Gen Alert and awake Lying in bed No apparent distress Oriented to: person, time, and place - Skin Cellulitis in the legs with multiple vertical areas of bruising and bleeding in the legs. No abnormalities - Eyes No abnormalities - ENMT No abnormalities - Neck No abnormalities No cervical adenopathy - CVS RRR - Chest Mildly decreased breath sounds bilaterally. - Resp No wheezing - Abd Obese, soft, nontender - GI + bowel sounds No abnormalities - No abnormalities - Ext Moderate edema in both lower extremities.Cellulitis in the legs with multiple vertical areas of bruis ing and bleeding in the legs. - MSK 4+/5 weakness in both lower extremities. - Neuro No focal deficits - Psych No abnormalities ASSESSMENT: Pt. is a 70 yo Right-handed white male.He has past medical history significant for DX on MEDIC.On he was admitted to [facility] with diagnosis NSTEMI.His impairment category is Card iac 09 - Cardiac Disorders (09).Pre-morbidly, Pt. was independent/mod-I in Communication and Self-Ca re; and he had good Transfers Control, Social Cognition, and Balance.Currently, he has deficits of Ba nadira, Transfers Control, Endurance, and Sphincter Control.Pt. is now referred to [facility] for acute in-patient rehabilitation in order to maximize patient's functional independ ence in activities of daily living, strength, ROM, and mobility.- Rehab Goal Patient has realistic goal of being discharged at assistance level 7-Ind to reside at Home with Pt s elf. MDM/PLAN: - Physical Therapy Gait dysfunction - to improve, our physical therapists will perform initial evaluation of pt's statu s upon admission and devise an individualized program for Gait Training, and Wheel Chair mobility Inability to transfer - to improve, our physical therapists will perform initial evaluation of pt's status upon admission and devise an individualized program for Bed mobility Need in caregiver upon discharge - to improve, our physical therapists will perform initial evaluati on of pt's status upon admission and devise an individualized program for Caregiver Training New precaution - to improve, our physical therapists will perform initial evaluation of pt's status upon admission and devise an individualized program for Patient precaution education Edema - to improve, our physical therapists will perform initial evaluation of pt's status upon admi ssion and devise an individualized program for Elevation Training, and Lymphedema Therapy Poor balance - to improve, our physical therapists will perform initial evaluation of pt's status up on admission and devise an individualized program for Balance Training Poor endurance - to improve, our physical therapists will perform initial evaluation of pt's status upon admission and devise an individualized program for Endurance Training Weakness - to improve, our physical therapists will perform initial evaluation of pt's status upon a dmission and devise an individualized program for Aquatic Therapy, Neuromuscular Reeducation, and Str engthening Achieving independence - to improve, our physical therapists will perform initial evaluation of pt's status upon admission and devise an individualized program for Community Reintegration Activities - Occupational Therapy Need for ambulatory care - to improve, our occupation therapists will perform initial evaluation of pt's status upon admission and devise an individualized program for Caregiver Training Weakness - to improve, our occupation therapists will perform initial evaluation of pt's status upon admission and devise an individualized program for Aquatic Therapy, Balance, Endurance, UE ROM, and UE strengthening - N/A Continue see attached - Diet Type Continue Regular - Diet - Liquid Texture Continue Regular - Tube Feed Continue N/A - Other See attached MAR (Medication Administration Record) - Diet - Solid Texture Continue Regular - Shower allowing shower FUNCTIONAL STATUS: UPDATED AT WEEKLY TEAM CONFERENCE - Bladder Same accident frequency: 0-UNK - No information - Bowel Same accident frequency: 0-UNK - No information - Walking Same score based on distance walked: 0(N/A) - Wheelchair Same score based on distance traveled: 0(N/A) FUNCTIONAL STATUS: - Self-Care A. Eating Ind B. Grooming Alena C. Bathing [place]w D. Dressing - Upper [place] E. Dressing - Lower modA F. Toileting [place] - Sphincter Control G. Bladder control sup H. Bowel control sup - Transfers Control I. Bed/Chair/Wheelchair [place] J. Toilet [place] K. Tub/Shower sup - Locomotion L. Walk/Wheelchair (B) sup M. Stairs ADNO - Communication N. Comprehension (B) Alena O. Expression (B) Alena - Social Cognition P. Social Interaction Ind Q. Problem Solving Ind R. Memory Ind - Endurance Fair - Balance Fair - Safety Awareness Good QI SCORES: - Self-Care A. Eating 04-Supervision or touching assistance B. Oral hygiene 04-Supervision or touching assistance C. Toileting hygiene 04-Supervision or touching assistance E. Shower/bathe self 04-Supervision or touching assistance F. Upper body dressing 04-Supervision or touching assistance G. Lower body dressing 04-Supervision or touching assistance H. Putting on/taking off footwear 88-Not attempted due to medical condition or safety concerns - Mobility A. Roll left and right 05-Setup or clean-up assistance B. Sit to lying 04-Supervision or touching assistance C. Lying to sitting on side of bed 04-Supervision or touching assistance D. Sit to stand 04-Supervision or touching assistance E. Chair/bid-rm-fjcqg transfer 03-Partial/moderate assistance F. Toilet transfer 03-Partial/moderate assistance G. Car transfer 88-Not attempted due to medical condition or safety concerns I. Walk 10 feet 02-Substantial/maximal assistance J. Walk 50 feet with two turns 88-Not attempted due to medical condition or safety concerns K. Walk 150 feet 88-Not attempted due to medical condition or safety concerns L. Walking 10 feet on uneven surfaces 88-Not attempted due to medical condition or safety concerns M. 1 step (curb) 88-Not attempted due to medical condition or safety concerns N. 4 steps 88-Not attempted due to medical condition or safety concerns O. 12 steps 88-Not attempted due to medical condition or safety concerns P. Picking up object 88-Not attempted due to medical condition or safety concerns R. Wheel 50 feet with two turns 88-Not attempted due to medical condition or safety concerns S. Wheel 150 feet 88-Not attempted due to medical condition or safety concerns - Bladder and Bowel Bladder continence Bowel continence - Endurance Fair - Balance Fair - Safety Awareness Fair CURRENT [facility]. DEFICITS: Self-Care, Mobility, Endurance, Balance, and Safety Awareness SIGNATURE PANEL: (CDT)
[2020-05-23] MEDS: ATORVASTATIN 80 MG TAB PO SCH (20:02)
[2020-05-23] MEDS ORDERED: SENOSIDES 8.6 MG TAB PO SCH (21:00)
[2020-05-24] MEDS: ALPRAZOLAM 0.25 MG TABLET PO PRN ×3 (01:31→19:52)
[2020-05-24] MEDS: METOPROLOL XL 25 MG TAB PO SCH ×2 (04:59→17:29)
[2020-05-24] MEDS: DULERA 100/5 (MOMETASONE/FORMOTEROL) INHALER IH SCH ×2 (07:11→20:00)
[2020-05-24] MEDS: BUPROPRION HCL S.R. 150MG TAB PO SCH (07:47)
[2020-05-24] MEDS: FOLIC ACID 1 MG TABLET PO SCH (07:47)
[2020-05-24] MEDS: AMIODARONE HCL 200 MG TAB PO SCH ×2 (07:48→19:51)
[2020-05-24] MEDS: CRANBERRY FRUIT EXTRACT 200 MG CAP PO SCH ×2 (07:48→19:51)
[2020-05-24] MEDS: ASPIRIN 81 MG CHEWABLE TABLET PO SCH (07:48)
[2020-05-24] MEDS: CLOPIDOGREL 75 MG TABLET PO SCH (07:48)
[2020-05-24] MEDS: TORSEMIDE 20 MG TAB PO SCH ×2 (07:49→19:51)
[2020-05-24] MEDS: APIXABAN 2.5 MG TABLET PO SCH ×2 (07:49→19:52)
[2020-05-24] MEDS: ACETAMINOPHEN 500 MG TAB PO PRN (07:52)
[2020-05-24] MEDS: IPRATROPIUM BROM 0.5MG/2.5ML IH PRN (08:00)
[2020-05-24] MEDS: ALBUTEROL 2.5 MG/3 ML NEB SOL IH PRN (08:00)
--- NOTE | 2020-05-24 08:31 | RAD REPORT ---
EXAM DESCRIPTION: RAD - Chest Single View - 05/24/2020 6:06 am CLINICAL HISTORY: Wheezing, shortness of breath COMPARISON: May 22 TECHNIQUE: AP portable chest image was obtained 05/24/2020 6:06 am . FINDINGS: Interstitial and alveolar opacities are present in the medial portions of each mid and low er lung field. Pattern has worsened slightly from the May 22 imaging. Hazy opacification increase noted in the lateral aspect of the right upper lung field. Cardiomegaly is present slightly less prominent than seen May 22. Upper lobe vasculature is not grossly enlarged. No measurable pleural effusion and no pneumothorax. No acute bony abnormality seen. No acute aortic findings suspected. IMPRESSION: Worsening lung parenchymal opacification in the setting of a slightly diminished heart s ize. While the findings could still represent progressive failure, noncardiogenic edema and bilateral pneu monia findings are now possible as well.
--- NOTE | 2020-05-24 10:02 | P.RH.PN ---
Estimated Length of Stay: 11 Expected Discharge Date: 05/29/20 Discharge Disposition Plan: Home Family Support: Yes Half-Way Goal: Mobility, Transfers, Self Care Vital Signs: Last Vital Signs Temp 97.5 F 05/24/20 08:00 Pulse 70 05/24/20 08:00 Resp 16 05/24/20 08:00 BP 125/72 05/24/20 08:00 Pulse Ox 94 05/24/20 08:00 Laboratory: Laboratory Last Values WBC 10.9 K/uL (4.3-10.9) 05/23/20 06:28 RBC 3.90 M/uL (4.33-5.43) L 05/23/20 06:28 Hgb 12.9 g/dL (13.6-17.9) L 05/23/20 06:28 Hct 37.2 % (39.6-49.0) L 05/23/20 06:28 MCV 95.5 fL (80-100) 05/23/20 06:28 MCH 33.1 pg (27.0-35.0) 05/23/20 06:28 MCHC 34.7 g/dL (32.0-36.0) 05/23/20 06:28 RDW 15.8 % (12.1-15.2) H 05/23/20 06:28 Plt Count 536 K/uL (152-406) H 05/23/20 06:28 MPV 7.9 fL (7.6-11.3) 05/23/20 06:28 Neutrophils % 78.8 % (41.7-73.7) H 05/23/20 06:28 Lymphocytes % 5.3 % (15.3-44.8) L 05/23/20 06:28 Monocytes % 6.8 % (3.3-12.3) 05/23/20 06:28 Eosinophils % 9.1 % (0-4.4) H 05/23/20 06:28 Basophils % 0.0 % (0-1.3) 05/23/20 06:28 Absolute Neutrophils 8.6 K/uL (1.8-8.0) H 05/23/20 06:28 Absolute Lymphocytes 0.6 K/uL (0.7-4.9) L 05/23/20 06:28 Absolute Monocytes 0.7 K/uL (0.1-1.3) 05/23/20 06: Absolute Eosinophils 1.0 K/uL (0-0.5) H 05/23/20 06: Absolute Basophils 0.0 K/uL (0-0.5) 05/23/20 06:28 Sodium 140 mmol/L (136-145) 05/23/20 06:28 Potassium 4.0 mmol/L (3.5-5.1) 05/23/20: Chloride 105 mmol/L (98-107) 05/23/20 06: Carbon Dioxide 29 mmol/L (21-32) 05/23/20: BUN 25 mg/dL (7-18) H 05/23/20 06:28 Creatinine 1.37 mg/dL (0.55-1.3) H 05/23/20 06:28 Estimated GFR 51 mL/min (=/>90) L 05/23/20 06: Glucose 109 mg/dL (74-106) H 05/23/20 06:28 Calcium 9.0 mg/dL (8.5-10.1) 05/23/20: Magnesium 2.6 mg/dL (1.8-2.4) H 05/23/20:28 Albumin 3.1 g/dL (3.4-5.0) L 05/23/20 06: Prealbumin 21.8 mg/dL (20-40) 05/23/20 06:28 Urine Color Yellow 05/19/20 20:00 Urine Appearance Cloudy 05/19/20 20: Urine pH 5.5 (5.0-7.0) 05/19/20 20: Ur Specific [place] 1.020 (1.005-1.030) 05/19/20 20:00 Glucose (UA)(Auto) Negative (NEG) 05/19/20 20:00 Urine Ketones Negative (NEG) 05/19/20 20: Urine Blood Negative (NEG) 05/19/20 20: Urine Nitrite Negative (NEG) 05/19/20 20: Urine Bilirubin Negative (NEG) 05/19/20 20: Urine Urobilinogen 1.0 mg/dL (0.2-1.0) 05/19/20 20:00 Ur Leukocyte Esterase 2+ (NEG) H 05/19/20 20:00 Urine RBC <5 /HPF (NONE SEEN) 05/19/20 20:00 Urine WBC 20-50 /HPF (<5) H 05/19/20 20:00 Ur Squamous Epith Cells MATE FIRST 05/19/20 20:00 Ur Urothelial Cells <5 /HPF (NONE SEEN) 05/19/20 20:00 Urine Bacteria >50 /HPF (NONE SEEN) H 05/19/20 20:00 Urine Culture Reflexed Not needed 05/19/20 20:00 Urine Total Protein Negative (NEG) 05/19/20 20:00 Weight: 253 lb Wound Present: No Closed Surgical Incision Present: Yes Negative Pressure Wound Therapy Present: No Physician Update: Labs reviewed and his WBC is unchanged but his chest x-ray shows slight worsening fluid pattern with the possibility of pneumonia. Will repeat chest x-ray in the AM, increase incentive spirometry, procalcitonin and lactate if he develops a feaver and cough. He is walking 250' standby assistance, up and down 5 stairs. He is impulsive. He has slight worsening shortness of breath and anxiety. He has pain in the left shoulder rotator cuff tear. Supervision for bathing. He is minimum assistance. He is better with benzodiapenes. Functional Improvement: Patient continues to show improvement, however is limited by anxiety. Patient has improved on gait tx., transfers, balance, and pacing. 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 Please see the Rehabilitation Signature page for all necessary signatures.
[2020-05-24] MEDS: CLOBETASOL 0.05 % CREAM 15GM TOP SCH ×2 (12:09→20:00)
[2020-05-24] MEDS ORDERED: DUPIXENT SQ SCH (14:15)
[2020-05-24] MEDS: ATORVASTATIN 80 MG TAB PO SCH (20:50)
[2020-05-25] MEDS: METOPROLOL XL 25 MG TAB PO SCH ×2 (05:24→16:57)
[2020-05-25 05:29] VITALS: BMI 32.8
[2020-05-25] MEDS: ALPRAZOLAM 0.25 MG TABLET PO PRN ×3 (05:31→21:11)
[2020-05-25] MEDS: CLOBETASOL 0.05 % CREAM 15GM TOP SCH ×2 (08:00→21:10)
[2020-05-25] MEDS: DULERA 100/5 (MOMETASONE/FORMOTEROL) INHALER IH SCH ×2 (08:00→21:09)
[2020-05-25] MEDS: CLOPIDOGREL 75 MG TABLET PO SCH (08:45)
[2020-05-25] MEDS: AMIODARONE HCL 200 MG TAB PO SCH ×2 (08:46→21:08)
[2020-05-25] MEDS: predniSONE 10 MG TAB PO SCH (08:46)
[2020-05-25] MEDS: CRANBERRY FRUIT EXTRACT 200 MG CAP PO SCH ×2 (08:46→21:08)
[2020-05-25] MEDS: ASPIRIN 81 MG CHEWABLE TABLET PO SCH (08:46)
[2020-05-25] MEDS: APIXABAN 2.5 MG TABLET PO SCH ×2 (08:47→21:08)
[2020-05-25] MEDS: FOLIC ACID 1 MG TABLET PO SCH (08:47)
[2020-05-25] MEDS: BUPROPRION HCL S.R. 150MG TAB PO SCH (08:47)
[2020-05-25] MEDS: TORSEMIDE 20 MG TAB PO SCH ×2 (08:48→21:09)
[2020-05-25] MEDS: IPRATROPIUM BROM 0.5MG/2.5ML IH PRN (08:55)
[2020-05-25] MEDS: ALBUTEROL 2.5 MG/3 ML NEB SOL IH PRN (08:55)
[2020-05-25] MEDS ORDERED: FUROSEMIDE 20 MG/ 2ML VIAL IV ONE (10:00)
--- NOTE | 2020-05-25 10:37 | RAD REPORT ---
EXAM DESCRIPTION: Ovidio Single View05/25/2020 10:06 am CLINICAL HISTORY: sob COMPARISON: May 24, 2020 FINDINGS: Keo. Mild improvement in the mild to moderate bilateral pulmonary opacities. The heart rem ains enlarged. Small pleural effusions IMPRESSION: Mild improvement in CHF
[2020-05-25] MEDS ORDERED: FUROSEMIDE 40 MG/4 ML VIAL IV ONE (11:00)
[2020-05-25] MEDS ORDERED: TORSEMIDE 20 MG TAB PO SCH (20:00)
[2020-05-25] MEDS: ATORVASTATIN 80 MG TAB PO SCH (21:08)
[2020-05-26] MEDS: ALPRAZOLAM 0.25 MG TABLET PO PRN ×3 (02:35→20:25)
[2020-05-26] MEDS: METOPROLOL XL 25 MG TAB PO SCH ×2 (05:07→17:03)
[2020-05-26 06:29] LABS: Potassium 4.5 mmol/L (3.5-5.1)
[2020-05-26 06:32] LABS: Absolute Lymphocytes (CBC) 0.6 K/uL (0.7-4.9); Basophils % 0.1 % (0-1.3); Hematocrit 35.1 % (39.6-49.0); Lymphocytes % 4.8 % (15.3-44.8); MPV 8.5 fL (7.6-11.3); RBC Red Blood Cell Count 3.67 M/uL (4.33-5.43)
[2020-05-26 07:35] LABS: Blood Morphology Comment NOT SEEN (NOT SEEN); Platelet Estimate INCR; Platelets, Giant NOTED
[2020-05-26] MEDS: APIXABAN 2.5 MG TABLET PO SCH ×2 (08:22→20:25)
[2020-05-26] MEDS: BUPROPRION HCL S.R. 150MG TAB PO SCH (08:22)
[2020-05-26] MEDS: predniSONE 10 MG TAB PO SCH (08:23)
[2020-05-26] MEDS: CLOPIDOGREL 75 MG TABLET PO SCH (08:23)
[2020-05-26] MEDS: CRANBERRY FRUIT EXTRACT 200 MG CAP PO SCH ×2 (08:23→20:25)
[2020-05-26] MEDS: FOLIC ACID 1 MG TABLET PO SCH (08:23)
[2020-05-26] MEDS: TORSEMIDE 20 MG TAB PO SCH ×2 (08:24→17:02)
[2020-05-26] MEDS: AMIODARONE HCL 200 MG TAB PO SCH ×2 (08:24→20:25)
[2020-05-26] MEDS: ASPIRIN 81 MG CHEWABLE TABLET PO SCH (08:24)
[2020-05-26] MEDS: DULERA 100/5 (MOMETASONE/FORMOTEROL) INHALER IH SCH ×2 (08:26→20:25)
[2020-05-26] MEDS: CLOBETASOL 0.05 % CREAM 15GM TOP SCH ×2 (09:28→20:26)
[2020-05-26] MEDS: ATORVASTATIN 80 MG TAB PO SCH (20:25)
[2020-05-27] MEDS: ALPRAZOLAM 0.25 MG TABLET PO PRN ×3 (02:34→23:41)
[2020-05-27] MEDS: IPRATROPIUM BROM 0.5MG/2.5ML IH PRN ×3 (03:38→22:55)
[2020-05-27] MEDS: ALBUTEROL 2.5 MG/3 ML NEB SOL IH PRN ×3 (03:38→22:55)
[2020-05-27] MEDS: METOPROLOL XL 25 MG TAB PO SCH ×2 (05:17→17:15)
[2020-05-27] MEDS: CRANBERRY FRUIT EXTRACT 200 MG CAP PO SCH ×2 (07:23→20:26)
[2020-05-27] MEDS: FOLIC ACID 1 MG TABLET PO SCH (07:23)
[2020-05-27] MEDS: TORSEMIDE 20 MG TAB PO SCH ×2 (07:24→20:26)
[2020-05-27] MEDS: CLOPIDOGREL 75 MG TABLET PO SCH (07:24)
[2020-05-27] MEDS: ASPIRIN 81 MG CHEWABLE TABLET PO SCH (07:24)
[2020-05-27] MEDS: predniSONE 10 MG TAB PO SCH (07:24)
[2020-05-27] MEDS: AMIODARONE HCL 200 MG TAB PO SCH ×2 (07:25→20:27)
[2020-05-27] MEDS: APIXABAN 2.5 MG TABLET PO SCH ×2 (07:25→20:26)
[2020-05-27] MEDS: BUPROPRION HCL S.R. 150MG TAB PO SCH (07:29)
[2020-05-27] MEDS: CLOBETASOL 0.05 % CREAM 15GM TOP SCH ×2 (07:30→20:00)
[2020-05-27] MEDS: DULERA 100/5 (MOMETASONE/FORMOTEROL) INHALER IH SCH ×2 (07:30→20:26)
[2020-05-27 07:52] LABS: Absolute Lymphocytes (CBC) 0.5 K/uL (0.7-4.9); Basophils % 0.9 % (0-1.3); Hematocrit 35.8 % (39.6-49.0); MPV 7.8 fL (7.6-11.3); RBC Red Blood Cell Count 3.72 M/uL (4.33-5.43)
[2020-05-27 07:58] LABS: Potassium 3.7 mmol/L (3.5-5.1)
--- NOTE | 2020-05-27 16:41 | FAST ---
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 Alexi Loza M.D. ADMISSION DIAGNOSIS: - Cardiac 09 - Cardiac Disorders () NSTEMI. EATING: EATING - STEP 1: Does the patient complete the activity by him/herself with no assistance (physical, verbal/nonverbal cueing, setup/clean-up)? No. EATING - STEP 2: Does the patient need only setup/clean-up assistance from one helper? Yes. 1. [id number] ADMISSION PERFORMANCE: Setup or clean-up assistance CODE: 05 ORAL HYGIENE: ORAL HYGIENE - STEP 1: Does the patient complete the activity by him/herself with no assistance (physical, verbal/nonverbal cueing, setup/clean-up)? No. ORAL HYGIENE - STEP 2: Does the patient need only setup/clean-up assistance from one helper? Yes. 1. [id number] ADMISSION PERFORMANCE: Setup or clean-up assistance CODE: 05 TOILETING HYGIENE: TOILETING HYGIENE - STEP 1: Does the patient complete the activity by him/herself with no assistance (physical, verbal/nonverbal cueing, setup/clean-up)? No. TOILETING HYGIENE - STEP 2: Does the patient need only setup/clean-up assistance from one helper? Yes. 1. [id number] ADMISSION PERFORMANCE: Setup or clean-up assistance CODE: 05 BATHING: Not assessed/no information CODE: - DRESSING - UPPER BODY: DRESSING - UPPER BODY - STEP 1: Does the patient complete the activity by him/herself with no assistance (physical, verbal/nonverbal cueing, setup/clean-up)? No. DRESSING - UPPER BODY - STEP 2: Does the patient need only setup/clean-up assistance from one helper? No. DRESSING - UPPER BODY - STEP 3: Does the patient need only verbal/nonverbal cueing or touching/steadying/contact guard assistance fro m one helper? Yes. 1. [id number] ADMISSION PERFORMANCE: Supervision or touching assistance CODE: 04 DRESSING - LOWER BODY: DRESSING - LOWER BODY - STEP 1: Does the patient complete the activity by him/herself with no assistance (physical, verbal/nonverbal cueing, setup/clean-up)? No. DRESSING - LOWER BODY - STEP 2: Does the patient need only setup/clean-up assistance from one helper? No. DRESSING - LOWER BODY - STEP 3: Does the patient need only verbal/nonverbal cueing or touching/steadying/contact guard assistance fro m one helper? Yes. 1. [id number] ADMISSION PERFORMANCE: Supervision or touching assistance CODE: 04 PUTTING ON/TAKING OFF FOOTWEAR: FOOTWEAR - STEP 1: Does the patient complete the activity by him/herself with no assistance (physical, verbal/nonverbal cueing, setup/clean-up)? No. FOOTWEAR - STEP 2: Does the patient need only setup/clean-up assistance from one helper? No. FOOTWEAR - STEP 3: Does the patient need only verbal/nonverbal cueing or touching/steadying/contact guard assistance fro m one helper? Yes. 1. [id number] ADMISSION PERFORMANCE: Supervision or touching assistance CODE: 04 ROLL LEFT AND RIGHT: ROLL LEFT AND RIGHT - STEP 1: Does the patient complete the activity by him/herself with no assistance (physical, verbal/nonverbal cueing, setup/clean-up)? No. ROLL LEFT AND RIGHT - STEP 2: Does the patient need only setup/clean-up assistance from one helper? No. ROLL LEFT AND RIGHT - STEP 3: Does the patient need only verbal/nonverbal cueing or touching/steadying/contact guard assistance fro m one helper? Yes. 1. [id number] ADMISSION PERFORMANCE: Supervision or touching assistance CODE: 04 SIT TO LYING: SIT TO LYING - STEP 1: Does the patient complete the activity by him/herself with no assistance (physical, verbal/nonverbal cueing, setup/clean-up)? No. SIT TO LYING - STEP 2: Does the patient need only setup/clean-up assistance from one helper? No. SIT TO LYING - STEP 3: Does the patient need only verbal/nonverbal cueing or touching/steadying/contact guard assistance fro m one helper? Yes. 1. [id number] ADMISSION PERFORMANCE: Supervision or touching assistance CODE: 04 LYING TO SITTING: LYING TO SITTING ON SIDE OF BED - STEP 1: Does the patient complete the activity by him/herself with no assistance (physical, verbal/nonverbal cueing, setup/clean-up)? No. LYING TO SITTING ON SIDE OF BED - STEP 2: Does the patient need only setup/clean-up assistance from one helper? No. LYING TO SITTING ON SIDE OF BED - STEP 3: Does the patient need only verbal/nonverbal cueing or touching/steadying/contact guard assistance fro m one helper? Yes. 1. [id number] ADMISSION PERFORMANCE: Supervision or touching assistance CODE: 04 SIT TO STAND: SIT TO STAND - STEP 1: Does the patient complete the activity by him/herself with no assistance (physical, verbal/nonverbal cueing, setup/clean-up)? No. SIT TO STAND - STEP 2: Does the patient need only setup/clean-up assistance from one helper? No. SIT TO STAND - STEP 3: Does the patient need only verbal/nonverbal cueing or touching/steadying/contact guard assistance fro m one helper? Yes. 1. [id number] ADMISSION PERFORMANCE: Supervision or touching assistance CODE: 04 TRANSFERS: BED, CHAIR: CHAIR/PSO-HT-YOOYS TRANSFER - STEP 1: Does the patient complete the activity by him/herself with no assistance (physical, verbal/nonverbal cueing, setup/clean-up)? No. CHAIR/[id number] TRANSFER - STEP 2: Does the patient need only setup/clean-up assistance from one helper? No. CHAIR/JIS-NV-FLDAP TRANSFER - STEP 3: Does the patient need only verbal/nonverbal cueing or touching/steadying/contact guard assistance fro m one helper? Yes. 1. [id number] ADMISSION PERFORMANCE: Supervision or touching assistance CODE: 04 TRANSFER TOILET: TOILET TRANSFER - STEP 1: Does the patient complete the activity by him/herself with no assistance (physical, verbal/nonverbal cueing, setup/clean-up)? No. TOILET TRANSFER - STEP 2: Does the patient need only setup/clean-up assistance from one helper? No. TOILET TRANSFER - STEP 3: Does the patient need only verbal/nonverbal cueing or touching/steadying/contact guard assistance fro m one helper? Yes. 1. [id number] ADMISSION PERFORMANCE: Supervision or touching assistance CODE: 04 TRANSFERS: CAR: Not assessed/no information CODE: - WALK 10 FEET: Not assessed/no information CODE: - 1 STEP (CURB): Not assessed/no information CODE: - PICKING UP OBJECT: Not assessed/no information CODE: - DOES THE PATIENT USE A WHEELCHAIR/SCOOTER? Q1. DOES THE PATIENT USE A WHEELCHAIR/SCOOTER?: Yes CODE: 1 WHEEL 50 FEET WITH TWO TURNS: WHEEL 50 FEET WITH TWO TURNS - STEP 1: Does the patient complete the activity by him/herself with no assistance (physical, verbal/nonverbal cueing, setup/clean-up)? No. WHEEL 50 FEET WITH TWO TURNS - STEP 2: Does the patient need only setup/clean-up assistance from one helper? No. WHEEL 50 FEET WITH TWO TURNS - STEP 3: Does the patient need only verbal/nonverbal cueing or touching/steadying/contact guard assistance fro m one helper? Yes. 1. [id number] ADMISSION PERFORMANCE: Supervision or touching assistance CODE: 04 INDICATE THE TYPE OF WHEELCHAIR/SCOOTER USED: RR1. INDICATE THE TYPE OF WHEELCHAIR/SCOOTER USED.: Manual CODE: 1 WHEEL 150 FEET: WHEEL 150 FEET - STEP 1: Does the patient complete the activity by him/herself with no assistance (physical, verbal/nonverbal cueing, setup/clean-up)? No. WHEEL 150 FEET - STEP 2: Does the patient need only setup/clean-up assistance from one helper? No. WHEEL 150 FEET - STEP 3: Does the patient need only verbal/nonverbal cueing or touching/steadying/contact guard assistance fro m one helper? Yes. 1. [id number] ADMISSION PERFORMANCE: Supervision or touching assistance CODE: 04 INDICATE THE TYPE OF WHEELCHAIR/SCOOTER USED: SS1. INDICATE THE TYPE OF WHEELCHAIR/SCOOTER USED.: Manual CODE: 1 BLADDER AND BOWEL: H350. BLADDER CONTINENCE (3-DAY ASSESSMENT PERIOD): Stress incontinence only CODE: 1 H400. BOWEL CONTINENCE (3-DAY ASSESSMENT PERIOD): Always continent CODE: 0 SIGNATURE PANEL: The following modified sections: 1. [id number] Admission Performance, 1. [id number] Admission Performance, 1. [id number] Admission Performance, 1. [id number] Admission Performance, 1. [id number] Admission Performance, 1. BR9440k Admission Performance, 1. [id number] Admission Performance, 1. QC0053B Admission Performance , 1. ON0049I Admission Performance, 1. [id number] Admission Performance, 1. [id number] Admission Performanc e, 1. [id number] Admission Performance, 1. [id number] Admission Performance, 1. [id number] Admission Performan ce, Q1. Does the patient use a wheelchair/scooter?, 1. [id number] Admission Performance, RR1. Indicate t he type of wheelchair/scooter used., 1. [id number] Admission Performance, Code, SS1. Indicate the type o f wheelchair/scooter used., H350. Bladder Continence (3-day assessment period), H400. Bowel Continenc e (3-day assessment period) were [electronically] signed by Brendan [email or web address] on WedMay 27 2020 6:40:11 GMT-0600 (Central Standard Time)
--- NOTE | 2020-05-27 17:56 | R.PN ---
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 Pt denied any depression. WBC 10.9, Hgb 12.7, PLt 503, Information Technology Consultant 1.35, prealbumin 18.2, UA 2+ esterase, WBC 20-50 and bacteria >50, c ultures show 3+ gram negative rods, sensitivity is pending. Bed mobility done with independence. Ambulated 750' with standby assistance using a rolling walker. S elf-propelled wheelchair 500' with independence. She was impulsive during therapy. Up and down 15 frieda ps with standby assistance. VITAL SIGNS Temperature: 98.0 F SBP/DBP: 127/73 Pulse: 66 Resp: 16 MEDICATION ALLERGIES: No Known Drug Allergies (NKDA) ENVIRONMENTAL ALLERGIES: None Known - Substance Allergies None Known - Other Allergies None Known NURSING: - Shower allowing shower ACTIVITIES OOB only with supervision THERAPIES: - Dietary and Nutrition Adequate Nutrition. Nutritional Education. Nutritional Supplements. PHYSICAL EXAM - Gen Alert and awake Lying in bed No apparent distress Oriented to: person, time, and place - Skin Cellulitis in the legs with multiple vertical areas of bruising and bleeding in the legs. No abnormalities - Eyes No abnormalities - ENMT No abnormalities - Neck No abnormalities No cervical adenopathy - CVS RRR - Chest Mildly decreased breath sounds bilaterally. - Resp No wheezing - Abd Obese, soft, nontender - GI + bowel sounds No abnormalities - No abnormalities - Ext Moderate edema in both lower extremities.Cellulitis in the legs with multiple vertical areas of bruis ing and bleeding in the legs. - MSK 4+/5 weakness in both lower extremities. - Neuro No focal deficits - Psych No abnormalities ASSESSMENT: Pt. is a 70 yo Right-handed white male.He has past medical history significant for DX on MEDIC.On he was admitted to [facility] with diagnosis NSTEMI.His impairment category is Card iac 09 - Cardiac Disorders (09).Pre-morbidly, Pt. was independent/mod-I in Communication and Self-Ca re; and he had good Transfers Control, Social Cognition, and Balance.Currently, he has deficits of Ba nadira, Transfers Control, Endurance, and Sphincter Control.Pt. is now referred to [facility] for acute in-patient rehabilitation in order to maximize patient's functional independ ence in activities of daily living, strength, ROM, and mobility.- Rehab Goal Patient has realistic goal of being discharged at assistance level 7-Ind to reside at Home with Pt s elf. MDM/PLAN: - Physical Therapy Gait dysfunction - to improve, our physical therapists will perform initial evaluation of pt's statu s upon admission and devise an individualized program for Gait Training, and Wheel Chair mobility Inability to transfer - to improve, our physical therapists will perform initial evaluation of pt's status upon admission and devise an individualized program for Bed mobility Need in caregiver upon discharge - to improve, our physical therapists will perform initial evaluati on of pt's status upon admission and devise an individualized program for Caregiver Training New precaution - to improve, our physical therapists will perform initial evaluation of pt's status upon admission and devise an individualized program for Patient precaution education Edema - to improve, our physical therapists will perform initial evaluation of pt's status upon admi ssion and devise an individualized program for Elevation Training, and Lymphedema Therapy Poor balance - to improve, our physical therapists will perform initial evaluation of pt's status up on admission and devise an individualized program for Balance Training Poor endurance - to improve, our physical therapists will perform initial evaluation of pt's status upon admission and devise an individualized program for Endurance Training Weakness - to improve, our physical therapists will perform initial evaluation of pt's status upon a dmission and devise an individualized program for Aquatic Therapy, Neuromuscular Reeducation, and Str engthening Achieving independence - to improve, our physical therapists will perform initial evaluation of pt's status upon admission and devise an individualized program for Community Reintegration Activities - Occupational Therapy Need for child care giver - to improve, our occupation therapists will perform initial evaluation of pt's status upon admission and devise an individualized program for Caregiver Training Weakness - to improve, our occupation therapists will perform initial evaluation of pt's status upon admission and devise an individualized program for Aquatic Therapy, Balance, Endurance, UE ROM, and UE strengthening - N/A Continue see attached - Diet Type Continue Regular - Diet - Liquid Texture Continue Regular - Tube Feed Continue N/A - Other See attached MAR (Medication Administration Record) - Diet - Solid Texture Continue Regular - Shower allowing shower FUNCTIONAL STATUS: UPDATED AT WEEKLY TEAM CONFERENCE - Bladder Same accident frequency: 0-UNK - No information - Bowel Same accident frequency: 0-UNK - No information - Walking Same score based on distance walked: 0(N/A) - Wheelchair Same score based on distance traveled: 0(N/A) FUNCTIONAL STATUS: - Self-Care A. Eating Ind B. Grooming Alena C. Bathing [place] D. Dressing - Upper [place] E. Dressing - Lower modA F. Toileting [place] - Sphincter Control G. Bladder control sup H. Bowel control sup - Transfers Control I. Bed/Chair/Wheelchair [place] J. Toilet [place] K. Tub/Shower sup - Locomotion L. Walk/Wheelchair (B) sup M. Stairs ADNO - Communication N. Comprehension (B) Alena O. Expression (B) Alena - Social Cognition P. Social Interaction Ind Q. Problem Solving Ind R. Memory Ind - Endurance Fair - Balance Fair - Safety Awareness Good QI SCORES: - Self-Care A. Eating 04-Supervision or touching assistance B. Oral hygiene 04-Supervision or touching assistance C. Toileting hygiene 04-Supervision or touching assistance E. Shower/bathe self 04-Supervision or touching assistance F. Upper body dressing 04-Supervision or touching assistance G. Lower body dressing 04-Supervision or touching assistance H. Putting on/taking off footwear 88-Not attempted due to medical condition or safety concerns - Mobility A. Roll left and right 05-Setup or clean-up assistance B. Sit to lying 04-Supervision or touching assistance C. Lying to sitting on side of bed 04-Supervision or touching assistance D. Sit to stand 04-Supervision or touching assistance E. Chair/eon-xr-irena transfer 03-Partial/moderate assistance F. Toilet transfer 03-Partial/moderate assistance G. Car transfer 88-Not attempted due to medical condition or safety concerns I. Walk 10 feet 02-Substantial/maximal assistance J. Walk 50 feet with two turns 88-Not attempted due to medical condition or safety concerns K. Walk 150 feet 88-Not attempted due to medical condition or safety concerns L. Walking 10 feet on uneven surfaces 88-Not attempted due to medical condition or safety concerns M. 1 step (curb) 88-Not attempted due to medical condition or safety concerns N. 4 steps 88-Not attempted due to medical condition or safety concerns O. 12 steps 88-Not attempted due to medical condition or safety concerns P. Picking up object 88-Not attempted due to medical condition or safety concerns R. Wheel 50 feet with two turns 88-Not attempted due to medical condition or safety concerns S. Wheel 150 feet 88-Not attempted due to medical condition or safety concerns - Bladder and Bowel Bladder continence Bowel continence - Endurance Fair - Balance Fair - Safety Awareness Fair CURRENT [facility]. 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
[2020-05-27] MEDS: ATORVASTATIN 80 MG TAB PO SCH (20:26)
[2020-05-28] MEDS: IPRATROPIUM BROM 0.5MG/2.5ML IH PRN ×2 (04:10→08:15)
[2020-05-28] MEDS: ALBUTEROL 2.5 MG/3 ML NEB SOL IH PRN ×2 (04:10→08:15)
[2020-05-28] MEDS: METOPROLOL XL 25 MG TAB PO SCH ×2 (05:00→17:16)
[2020-05-28] MEDS: DULERA 100/5 (MOMETASONE/FORMOTEROL) INHALER IH SCH ×2 (07:36→19:27)
[2020-05-28] MEDS: ALPRAZOLAM 0.25 MG TABLET PO PRN ×2 (07:36→19:28)
[2020-05-28] MEDS: CLOBETASOL 0.05 % CREAM 15GM TOP SCH ×2 (07:37→20:00)
[2020-05-28] MEDS: BUPROPRION HCL S.R. 150MG TAB PO SCH (08:04)
[2020-05-28] MEDS: CRANBERRY FRUIT EXTRACT 200 MG CAP PO SCH ×2 (08:04→19:27)
[2020-05-28] MEDS: TORSEMIDE 20 MG TAB PO SCH ×2 (08:05→19:27)
[2020-05-28] MEDS: APIXABAN 2.5 MG TABLET PO SCH ×2 (08:05→19:28)
[2020-05-28] MEDS: FOLIC ACID 1 MG TABLET PO SCH (08:05)
[2020-05-28] MEDS: AMIODARONE HCL 200 MG TAB PO SCH ×2 (08:05→19:27)
[2020-05-28] MEDS: ASPIRIN 81 MG CHEWABLE TABLET PO SCH (08:05)
[2020-05-28] MEDS: predniSONE 10 MG TAB PO SCH (08:06)
[2020-05-28] MEDS: CLOPIDOGREL 75 MG TABLET PO SCH (08:06)
[2020-05-28] MEDS: AYR NASAL SALINE DROPS NAS PRN (15:06)
--- NOTE | 2020-05-28 16:53 | RAD REPORT ---
EXAM DESCRIPTION: Ovidio Single View05/28/2020 3:21 pm CLINICAL HISTORY: Shortness of breath COMPARISON: May 25, 2020 FINDINGS: Mild bilateral pulmonary opacities are present Small to moderate left and small right pleural effusion is suspected. The heart is mildly enlarged IMPRESSION: Mild CHF which is mildly improved from the prior exam
--- NOTE | 2020-05-28 17:45 | R.PN ---
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 Pt denied any depression. WBC 11.9, Hgb 12.1, PLt 444, Hot Strip Finisher 1.32, prealbumin 21.8, Magnesium 2.4. UA 2+ esterase, WBC 20-50 and bacteria >50, cultures show 3+ gram negative rods, sensitivity is pending. Bed mobility done with independence. Ambulated 500' with standby assistance using a rolling walker. H is O2 sat dropped to 84% and improved to 97 with 2L of O2. self-propelled wheelchair 150 with indepe ndence. She was impulsive during therapy. Up and down 15 steps with standby assistance. VITAL SIGNS Temperature: 97.8 F SBP/DBP: 141/85 Pulse: 70 Resp: 16 MEDICATION ALLERGIES: No Known Drug Allergies (NKDA) ENVIRONMENTAL ALLERGIES: None Known - Substance Allergies None Known - Other Allergies None Known NURSING: - Shower allowing shower ACTIVITIES OOB only with supervision THERAPIES: - Dietary and Nutrition Adequate Nutrition. Nutritional Education. Nutritional Supplements. PHYSICAL EXAM - Gen Alert and awake Lying in bed No apparent distress Oriented to: person, time, and place - Skin Cellulitis in the legs with multiple vertical areas of bruising and bleeding in the legs. No abnormalities - Eyes No abnormalities - ENMT No abnormalities - Neck No abnormalities No cervical adenopathy - CVS RRR - Chest Mildly decreased breath sounds bilaterally. - Resp No wheezing - Abd Obese, soft, nontender - GI + bowel sounds No abnormalities - No abnormalities - Ext Moderate edema in both lower extremities.Cellulitis in the legs with multiple vertical areas of bruis ing and bleeding in the legs. - MSK 4+/5 weakness in both lower extremities. - Neuro No focal deficits - Psych No abnormalities ASSESSMENT: Pt. is a 70 yo Right-handed white male.He has past medical history significant for DX on MEDIC.On he was admitted to [facility] with diagnosis NSTEMI.His impairment category is Card iac 09 - Cardiac Disorders (09).Pre-morbidly, Pt. was independent/mod-I in Communication and Self-Ca re; and he had good Transfers Control, Social Cognition, and Balance.Currently, he has deficits of Ba nadira, Transfers Control, Endurance, and Sphincter Control.Pt. is now referred to [facility] for acute in-patient rehabilitation in order to maximize patient's functional independ ence in activities of daily living, strength, ROM, and mobility.- Rehab Goal Patient has realistic goal of being discharged at assistance level 7-Ind to reside at Home with Pt s elf. MDM/PLAN: - Physical Therapy Gait dysfunction - to improve, our physical therapists will perform initial evaluation of pt's statu s upon admission and devise an individualized program for Gait Training, and Wheel Chair mobility Inability to transfer - to improve, our physical therapists will perform initial evaluation of pt's status upon admission and devise an individualized program for Bed mobility Need in caregiver upon discharge - to improve, our physical therapists will perform initial evaluati on of pt's status upon admission and devise an individualized program for Caregiver Training New precaution - to improve, our physical therapists will perform initial evaluation of pt's status upon admission and devise an individualized program for Patient precaution education Edema - to improve, our physical therapists will perform initial evaluation of pt's status upon admi ssion and devise an individualized program for Elevation Training, and Lymphedema Therapy Poor balance - to improve, our physical therapists will perform initial evaluation of pt's status up on admission and devise an individualized program for Balance Training Poor endurance - to improve, our physical therapists will perform initial evaluation of pt's status upon admission and devise an individualized program for Endurance Training Weakness - to improve, our physical therapists will perform initial evaluation of pt's status upon a dmission and devise an individualized program for Aquatic Therapy, Neuromuscular Reeducation, and Str engthening Achieving independence - to improve, our physical therapists will perform initial evaluation of pt's status upon admission and devise an individualized program for Community Reintegration Activities - Occupational Therapy Need for personal care aide - to improve, our occupation therapists will perform initial evaluation of pt's status upon admission and devise an individualized program for Caregiver Training Weakness - to improve, our occupation therapists will perform initial evaluation of pt's status upon admission and devise an individualized program for Aquatic Therapy, Balance, Endurance, UE ROM, and UE strengthening - N/A Continue see attached - Diet Type Continue Regular - Diet - Liquid Texture Continue Regular - Tube Feed Continue N/A - Other See attached MAR (Medication Administration Record) - Diet - Solid Texture Continue Regular - Shower allowing shower FUNCTIONAL STATUS: UPDATED AT WEEKLY TEAM CONFERENCE - Bladder Same accident frequency: 0-UNK - No information - Bowel Same accident frequency: 0-UNK - No information - Walking Same score based on distance walked: 0(N/A) - Wheelchair Same score based on distance traveled: 0(N/A) FUNCTIONAL STATUS: - Self-Care A. Eating Ind B. Grooming Alena C. Bathing [place]w D. Dressing - Upper [place] E. Dressing - Lower modA F. Toileting [place] - Sphincter Control G. Bladder control sup H. Bowel control sup - Transfers Control I. Bed/Chair/Wheelchair [place] J. Toilet [place] K. Tub/Shower sup - Locomotion L. Walk/Wheelchair (B) sup M. Stairs ADNO - Communication N. Comprehension (B) Alena O. Expression (B) Alena - Social Cognition P. Social Interaction Ind Q. Problem Solving Ind R. Memory Ind - Endurance Fair - Balance Fair - Safety Awareness Good QI SCORES: - Self-Care A. Eating 04-Supervision or touching assistance B. Oral hygiene 04-Supervision or touching assistance C. Toileting hygiene 04-Supervision or touching assistance E. Shower/bathe self 04-Supervision or touching assistance F. Upper body dressing 04-Supervision or touching assistance G. Lower body dressing 04-Supervision or touching assistance H. Putting on/taking off footwear 88-Not attempted due to medical condition or safety concerns - Mobility A. Roll left and right 05-Setup or clean-up assistance B. Sit to lying 04-Supervision or touching assistance C. Lying to sitting on side of bed 04-Supervision or touching assistance D. Sit to stand 04-Supervision or touching assistance E. Chair/pnx-kl-[id number] transfer 03-Partial/moderate assistance F. Toilet transfer 03-Partial/moderate assistance G. Car transfer 88-Not attempted due to medical condition or safety concerns I. Walk 10 feet 02-Substantial/maximal assistance J. Walk 50 feet with two turns 88-Not attempted due to medical condition or safety concerns K. Walk 150 feet 88-Not attempted due to medical condition or safety concerns L. Walking 10 feet on uneven surfaces 88-Not attempted due to medical condition or safety concerns M. 1 step (curb) 88-Not attempted due to medical condition or safety concerns N. 4 steps 88-Not attempted due to medical condition or safety concerns O. 12 steps 88-Not attempted due to medical condition or safety concerns P. Picking up object 88-Not attempted due to medical condition or safety concerns R. Wheel 50 feet with two turns 88-Not attempted due to medical condition or safety concerns S. Wheel 150 feet 88-Not attempted due to medical condition or safety concerns - Bladder and Bowel Bladder continence Bowel continence - Endurance Fair - Balance Fair - Safety Awareness Fair CURRENT [facility]. 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
[2020-05-28] MEDS: ATORVASTATIN 80 MG TAB PO SCH (20:22)
[2020-05-28] MEDS: TRAZODONE 50 MG TABLET PO PRN (21:49)
[2020-05-28] MEDS: MELATONIN 3 MG TABLET PO PRN (21:49)
[2020-05-29] MEDS: ALPRAZOLAM 0.25 MG TABLET PO PRN ×3 (05:11→23:22)
[2020-05-29] MEDS: METOPROLOL XL 25 MG TAB PO SCH ×2 (05:11→17:12)
[2020-05-29] MEDS: ALBUTEROL 2.5 MG/3 ML NEB SOL IH PRN ×2 (05:30→15:07)
[2020-05-29] MEDS: IPRATROPIUM BROM 0.5MG/2.5ML IH PRN ×2 (05:30→15:07)
[2020-05-29] MEDS: AYR NASAL SALINE DROPS NAS PRN (07:12)
[2020-05-29] MEDS: DULERA 100/5 (MOMETASONE/FORMOTEROL) INHALER IH SCH ×2 (07:14→20:40)
[2020-05-29] MEDS: TORSEMIDE 20 MG TAB PO SCH ×2 (08:10→20:41)
[2020-05-29] MEDS: CLOPIDOGREL 75 MG TABLET PO SCH (08:11)
[2020-05-29] MEDS: BUPROPRION HCL S.R. 150MG TAB PO SCH (08:11)
[2020-05-29] MEDS: APIXABAN 2.5 MG TABLET PO SCH ×2 (08:11→20:42)
[2020-05-29] MEDS: AMIODARONE HCL 200 MG TAB PO SCH ×2 (08:11→20:40)
[2020-05-29] MEDS: CRANBERRY FRUIT EXTRACT 200 MG CAP PO SCH ×2 (08:11→20:40)
[2020-05-29] MEDS: predniSONE 10 MG TAB PO SCH (08:11)
[2020-05-29] MEDS: ASPIRIN 81 MG CHEWABLE TABLET PO SCH (08:11)
[2020-05-29] MEDS: FOLIC ACID 1 MG TABLET PO SCH (08:12)
[2020-05-29] MEDS ORDERED: DULERA 200/5 (MOMETASONE/FORMOTEROL) INHALER IH SCH (08:19)
--- NOTE | 2020-05-29 08:28 | P.CNS ---
Date of Consult: 05/29/20 Reason for Consult: Hypoxemia and sleep apnea Chief Complaint: Sleep apnea and hypoxemia History of Present Illness: Patient is 70 years of age had a non STEMI patient has some stents put in was transferred from [facility] a he continues to have significant desaturation on home oxygen history of eczema quit smoking a long time ago has symptoms of sleep apnea loud snoring excessive daytime somnolence patient was prescribed a CPAP years ago but did not tolerated denies any cough some interstitial changes on his x-ray bilateral pleural effusions Allergies No Known Allergies Allergy (Verified 05/19/20 19:44) Home Medications: Acetaminophen [Tylenol Extra Strength] 1,000 mg PO Q8H PRN 05/19/20 Alprazolam [Xanax] 0.25 mg PO DAILY PRN 05/19/20 Amiodarone HCl [Pacerone] 100 mg PO BID 05/19/20 Apixaban [Eliquis] 2.5 mg PO BID 05/19/20 Aspirin Chewable [Aspirin Chewable*] 81 mg PO DAILY 05/19/20 Atorvastatin Calcium [Lipitor] 80 mg PO BEDTIME 05/19/20 Bupropion *Xl* [Wellbutrin XL] 450 mg PO DAILY 05/19/20 Clobetasol [Temovate Cream 0.05%*] 1 appl TOP BID 05/19/20 Clopidogrel Bisulfate [Plavix] 75 mg PO DAILY 05/19/20 Dupilumab [Dupixent Syringe] 300 mg SQ SEECOM 05/19/20 Folic Acid 1 mg PO DAILY 05/19/20 Metoprolol Succinate [Toprol Xl] 25 mg PO DAILY 05/19/20 Torsemide 10 mg PO DAILY 05/19/20 - Past Medical/Surgical History Diabetic: No -: COPD -: CAD -: [place] -: Eczema -: Chronic renal failure -: cardiac cath 04/2020 -: Stents - Social History Alcohol use: Yes CD- Drugs: No Caffeine use: Yes Place of Residence: Home Review of Systems 10-point ROS is otherwise unremarkable General: Weakness Respiratory: Shortness of Breath Physical Examination Temp Pulse Resp BP Pulse Ox 97.6 F 67 20 146/81 H 92 05/28/20 20:00 05/29/20 08:10 05/29/20 05:26 05/29/20 08:10 05/29/20 05:26 General: Alert Neck: Supple Respiratory: Clear to auscultation bilaterally Cardiovascular: No edema, Regular rate/rhythm, Normal S1 S2 Gastrointestinal: Normal bowel sounds, Soft and benign - Problems (1) Sleep apnea Current Visit: Yes Status: Acute Plan: Patient is 70 years of age with a history of sleep apnea non compliant he has all the symptoms snoring excessive daytime somnolence I prescribed him a CPAP patient wants to be self pay for now will also do an outpatient sleep study and prescribe him the CPAP through medical insurance (2) Hypoxemia Current Visit: Yes Status: Acute Plan: Differential diagnosis includes COPD heart failure patient has bilateral pleural effusions at spironolactone dictated blood gases continue with Dulera I have added prednisone patient is on torsemide probably underlying heart failure PA lateral chest x-ray
[2020-05-29] MEDS ORDERED: predniSONE 10 MG TAB PO ONE (09:00)
[2020-05-29] MEDS: SPIRONOLACTONE 25 MG TABLET PO SCH (09:07)
[2020-05-29 09:52] LABS: Potassium 3.9 mmol/L (3.5-5.1)
[2020-05-29 11:19] LABS: Arterial Blood Carboxyhemoglob 1.9 % (0-1.5); Blood Gas Oxyhemoglobin 87.1 % (94-97); Blood O2 Saturation 89.7 % (92-98.5)
[2020-05-29] MEDS: CLOBETASOL 0.05 % CREAM 15GM TOP SCH ×2 (13:00→20:42)
--- NOTE | 2020-05-29 15:16 | RAD REPORT ---
EXAM DESCRIPTION: RAD - Chest Pa And Lat (2 Views) - 05/29/2020 3:02 pm CLINICAL HISTORY: Interstitial changes on x-ray Chest pain. COMPARISON: Chest Single View dated 05/28/2020; Chest Single View dated 05/25/2020; Chest Single View dated 05/24/2020; Chest Single View dated 05/22/2020 FINDINGS: Posterior left lung base infiltrate is seen with small pleural effusion most compatible wi th developing pneumonia or aspiration related pneumonia. The heart is moderately enlarged in size. Pr oximal right humeral prosthesis.
--- NOTE | 2020-05-29 18:41 | R.PN ---
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 Pt denied any depression. WBC 11.9, Hgb 12.1, PLt 444, Pulp Bleacher 1.32, prealbumin 21.8, Magnesium 2.4. UA 2+ esterase, WBC 20-50 and bacteria >50, cultures show 3+ gram negative rods, sensitivity is pending. Bed mobility done with independence. Ambulated 750' with standby assistance using a rolling walker. H is O2 sat dropped to 88% and improved to 94 with 2L of O2. self-propelled wheelchair 150 with indepe ndence. ABG: pH 7.45, pO2 54.0, Pulp Bleacher 1.42, glucose 111 to 129. VITAL SIGNS Temperature: 97.0 F SBP/DBP: 141/77 Pulse: 66 Resp: 16 MEDICATION ALLERGIES: No Known Drug Allergies (NKDA) ENVIRONMENTAL ALLERGIES: None Known - Substance Allergies None Known - Other Allergies None Known NURSING: - Shower allowing shower ACTIVITIES OOB only with supervision THERAPIES: - Dietary and Nutrition Adequate Nutrition. Nutritional Education. Nutritional Supplements. PHYSICAL EXAM - Gen Alert and awake Lying in bed No apparent distress Oriented to: person, time, and place - Skin Cellulitis in the legs with multiple vertical areas of bruising and bleeding in the legs. No abnormalities - Eyes No abnormalities - ENMT No abnormalities - Neck No abnormalities No cervical adenopathy - CVS RRR - Chest Mildly decreased breath sounds bilaterally. - Resp No wheezing - Abd Obese, soft, nontender - GI + bowel sounds No abnormalities - No abnormalities - Ext Moderate edema in both lower extremities.Cellulitis in the legs with multiple vertical areas of bruis ing and bleeding in the legs. - MSK 4+/5 weakness in both lower extremities. - Neuro No focal deficits - Psych No abnormalities ASSESSMENT: Pt. is a 70 yo Right-handed white male.He has past medical history significant for DX on MEDIC.On he was admitted to [facility] with diagnosis NSTEMI.His impairment category is Card iac 09 - Cardiac Disorders (09).Pre-morbidly, Pt. was independent/mod-I in Communication and Self-Ca re; and he had good Transfers Control, Social Cognition, and Balance.Currently, he has deficits of Ba nadira, Transfers Control, Endurance, and Sphincter Control.Pt. is now referred to [facility] for acute in-patient rehabilitation in order to maximize patient's functional independ ence in activities of daily living, strength, ROM, and mobility.- Rehab Goal Patient has realistic goal of being discharged at assistance level 7-Ind to reside at Home with Pt s elf. MDM/PLAN: - Physical Therapy Gait dysfunction - to improve, our physical therapists will perform initial evaluation of pt's statu s upon admission and devise an individualized program for Gait Training, and Wheel Chair mobility Inability to transfer - to improve, our physical therapists will perform initial evaluation of pt's status upon admission and devise an individualized program for Bed mobility Need in caregiver upon discharge - to improve, our physical therapists will perform initial evaluati on of pt's status upon admission and devise an individualized program for Caregiver Training New precaution - to improve, our physical therapists will perform initial evaluation of pt's status upon admission and devise an individualized program for Patient precaution education Edema - to improve, our physical therapists will perform initial evaluation of pt's status upon admi ssion and devise an individualized program for Elevation Training, and Lymphedema Therapy Poor balance - to improve, our physical therapists will perform initial evaluation of pt's status up on admission and devise an individualized program for Balance Training Poor endurance - to improve, our physical therapists will perform initial evaluation of pt's status upon admission and devise an individualized program for Endurance Training Weakness - to improve, our physical therapists will perform initial evaluation of pt's status upon a dmission and devise an individualized program for Aquatic Therapy, Neuromuscular Reeducation, and Str engthening Achieving independence - to improve, our physical therapists will perform initial evaluation of pt's status upon admission and devise an individualized program for Community Reintegration Activities - Occupational Therapy Need for inspector health care facilities - to improve, our occupation therapists will perform initial evaluation of pt's status upon admission and devise an individualized program for Caregiver Training Weakness - to improve, our occupation therapists will perform initial evaluation of pt's status upon admission and devise an individualized program for Aquatic Therapy, Balance, Endurance, UE ROM, and UE strengthening - N/A Continue see attached - Diet Type Continue Regular - Diet - Liquid Texture Continue Regular - Tube Feed Continue N/A - Other See attached MAR (Medication Administration Record) - Diet - Solid Texture Continue Regular - Shower allowing shower FUNCTIONAL STATUS: UPDATED AT WEEKLY TEAM CONFERENCE - Bladder Same accident frequency: 0-UNK - No information - Bowel Same accident frequency: 0-UNK - No information - Walking Same score based on distance walked: 0(N/A) - Wheelchair Same score based on distance traveled: 0(N/A) FUNCTIONAL STATUS: - Self-Care A. Eating Ind B. Grooming Alena C. Bathing [place]w D. Dressing - Upper [place]w E. Dressing - Lower modA F. Toileting [place]w - Sphincter Control G. Bladder control sup H. Bowel control sup - Transfers Control I. Bed/Chair/Wheelchair [place]w J. Toilet [place]w K. Tub/Shower sup - Locomotion L. Walk/Wheelchair (B) sup M. Stairs ADNO - Communication N. Comprehension (B) Alena O. Expression (B) Alena - Social Cognition P. Social Interaction Ind Q. Problem Solving Ind R. Memory Ind - Endurance Fair - Balance Fair - Safety Awareness Good QI SCORES: - Self-Care A. Eating 04-Supervision or touching assistance B. Oral hygiene 04-Supervision or touching assistance C. Toileting hygiene 04-Supervision or touching assistance E. Shower/bathe self 04-Supervision or touching assistance F. Upper body dressing 04-Supervision or touching assistance G. Lower body dressing 04-Supervision or touching assistance H. Putting on/taking off footwear 88-Not attempted due to medical condition or safety concerns - Mobility A. Roll left and right 05-Setup or clean-up assistance B. Sit to lying 04-Supervision or touching assistance C. Lying to sitting on side of bed 04-Supervision or touching assistance D. Sit to stand 04-Supervision or touching assistance E. Chair/[id number] transfer 03-Partial/moderate assistance F. Toilet transfer 03-Partial/moderate assistance G. Car transfer 88-Not attempted due to medical condition or safety concerns I. Walk 10 feet 02-Substantial/maximal assistance J. Walk 50 feet with two turns 88-Not attempted due to medical condition or safety concerns K. Walk 150 feet 88-Not attempted due to medical condition or safety concerns L. Walking 10 feet on uneven surfaces 88-Not attempted due to medical condition or safety concerns M. 1 step (curb) 88-Not attempted due to medical condition or safety concerns N. 4 steps 88-Not attempted due to medical condition or safety concerns O. 12 steps 88-Not attempted due to medical condition or safety concerns P. Picking up object 88-Not attempted due to medical condition or safety concerns R. Wheel 50 feet with two turns 88-Not attempted due to medical condition or safety concerns S. Wheel 150 feet 88-Not attempted due to medical condition or safety concerns - Bladder and Bowel Bladder continence Bowel continence - Endurance Fair - Balance Fair - Safety Awareness Fair CURRENT [facility]. 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
[2020-05-29] MEDS: TRAZODONE 50 MG TABLET PO PRN (20:40)
[2020-05-29] MEDS: MELATONIN 3 MG TABLET PO PRN (20:41)
[2020-05-29] MEDS: ATORVASTATIN 80 MG TAB PO SCH (20:41)
[2020-05-29] MEDS: predniSONE 20 MG TAB PO SCH (20:42)
[2020-05-30] MEDS: METOPROLOL XL 25 MG TAB PO SCH ×2 (05:11→17:34)
[2020-05-30] MEDS: ALPRAZOLAM 0.25 MG TABLET PO PRN ×3 (05:11→17:38)
[2020-05-30 06:10] LABS: Absolute Lymphocytes (CBC) 0.4 K/uL (0.7-4.9); Basophils % 0.5 % (0-1.3); Hematocrit 33.8 % (39.6-49.0); Lymphocytes % 3.4 % (15.3-44.8); RBC Red Blood Cell Count 3.54 M/uL (4.33-5.43)
[2020-05-30 06:47] LABS: Albumin 2.9 g/dL (3.4-5.0); Magnesium 2.5 mg/dL (1.8-2.4); Potassium 4.5 mmol/L (3.5-5.1); Prealbumin 16.6 mg/dL (20-40)
[2020-05-30] MEDS: CLOBETASOL 0.05 % CREAM 15GM TOP SCH ×2 (08:00→20:00)
[2020-05-30] MEDS: IPRATROPIUM BROM 0.5MG/2.5ML IH PRN (08:16)
[2020-05-30] MEDS: ALBUTEROL 2.5 MG/3 ML NEB SOL IH PRN (08:16)
[2020-05-30] MEDS: CRANBERRY FRUIT EXTRACT 200 MG CAP PO SCH ×2 (09:28→19:55)
[2020-05-30] MEDS: TORSEMIDE 20 MG TAB PO SCH ×2 (09:28→19:57)
[2020-05-30] MEDS: predniSONE 20 MG TAB PO SCH (09:28)
[2020-05-30] MEDS: ASPIRIN 81 MG CHEWABLE TABLET PO SCH (09:28)
[2020-05-30] MEDS: BUPROPRION HCL S.R. 150MG TAB PO SCH (09:28)
[2020-05-30] MEDS: FOLIC ACID 1 MG TABLET PO SCH (09:29)
[2020-05-30] MEDS: CLOPIDOGREL 75 MG TABLET PO SCH (09:29)
[2020-05-30] MEDS: APIXABAN 2.5 MG TABLET PO SCH ×2 (09:30→19:55)
[2020-05-30] MEDS: AMIODARONE HCL 200 MG TAB PO SCH ×2 (09:30→19:55)
[2020-05-30] MEDS: SPIRONOLACTONE 25 MG TABLET PO SCH (09:31)
[2020-05-30] MEDS: DULERA 100/5 (MOMETASONE/FORMOTEROL) INHALER IH SCH (09:32)
--- NOTE | 2020-05-30 12:56 | P.PN ---
Subjective Date of Service: 05/30/20 Chief Complaint: Sleep apnea and hypoxemia No change still complaining of shortness of breath patient has mild hypoxemia awaiting CPAP Review of Systems General: Weakness Respiratory: Shortness of Breath Physical Examination - Vital Signs Temperature: 97.1 F Blood Pressure: 136/78 Pulse: 66 Respirations: 18 Pulse Ox (%): 96 - Physical Exam General: Alert, In no apparent distress, Oriented x3 Respiratory: Clear to auscultation bilaterally Cardiovascular: No edema, Regular rate/rhythm - Studies Laboratory Data (last 24 hrs) 05/30/20 05:51: Sodium 140, Potassium 4.5, BUN 30 H, Creatinine 1.20, Glucose 133 H, Magnesium 2.5 H 05/30/20 05:51: WBC 11.7 H, Hgb 11.6 L, Hct 33.8 L, Plt Count 355 D Assessment & Plan - Problems (Diagnosis) (1) Sleep apnea Current Visit: Yes Status: Acute Plan: Patient is scheduled to have CPAP (2) Hypoxemia Current Visit: Yes Status: Acute Plan: Doing better differential diagnosis includes COPD and CHF patient's BNP is elevated chest x-ray suggestive of volume overload need outpatient pulmonary function testing continue with bronchodilators also low-dose prednisone at the time of discharge also continue with low-dose spironolactone and low-dose of loop diuretic history of eczema patient was started on cyclosporin is on anti IL 5 inhibitor the right now Discharge Plan: Home
--- NOTE | 2020-05-30 17:57 | R.PN ---
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 Pt denied any depression. WBC 11.7, Hgb 11.6, PLt 355, Pharmacy Stock Clerk 1.32, prealbumin 16.6, Magnesium 2.5. UA 2+ esterase, WBC 20-50 and bacteria >50, cultures show 3+ gram negative rods, sensitivity is pending. Bed mobility done with independence. Ambulated 750' with standby assistance using a rolling walker. H is O2 sat dropped to 82% and improved to 98 with 2L of O2. self-propelled wheelchair 150 with indepe ndence. Up and down 5 steps with minimum assistance. ABG: pH 7.45, pO2 54.0, Pharmacy Stock Clerk 1.42, glucose 111 to 129. VITAL SIGNS Temperature: 97.1 F SBP/DBP: 139/78 Pulse: 68 Resp: 16 MEDICATION ALLERGIES: No Known Drug Allergies (NKDA) ENVIRONMENTAL ALLERGIES: None Known - Substance Allergies None Known - Other Allergies None Known NURSING: - Shower allowing shower ACTIVITIES OOB only with supervision THERAPIES: - Dietary and Nutrition Adequate Nutrition. Nutritional Education. Nutritional Supplements. PHYSICAL EXAM - Gen Alert and awake Lying in bed No apparent distress Oriented to: person, time, and place - Skin Cellulitis in the legs with multiple vertical areas of bruising and bleeding in the legs. No abnormalities - Eyes No abnormalities - ENMT No abnormalities - Neck No abnormalities No cervical adenopathy - CVS RRR - Chest Mildly decreased breath sounds bilaterally. - Resp No wheezing - Abd Obese, soft, nontender - GI + bowel sounds No abnormalities - No abnormalities - Ext Moderate edema in both lower extremities.Cellulitis in the legs with multiple vertical areas of bruis ing and bleeding in the legs. - MSK 4+/5 weakness in both lower extremities. - Neuro No focal deficits - Psych No abnormalities ASSESSMENT: Pt. is a 70 yo Right-handed white male.He has past medical history significant for DX on MEDIC.On he was admitted to [facility] with diagnosis NSTEMI.His impairment category is Card iac 09 - Cardiac Disorders ().Pre-morbidly, Pt. was independent/mod-I in Communication and Self-Ca re; and he had good Transfers Control, Social Cognition, and Balance.Currently, he has deficits of Ba nadira, Transfers Control, Endurance, and Sphincter Control.Pt. is now referred to [facility] for acute in-patient rehabilitation in order to maximize patient's functional independ ence in activities of daily living, strength, ROM, and mobility.- Rehab Goal Patient has realistic goal of being discharged at assistance level 7-Ind to reside at Home with Pt s elf. MDM/PLAN: - Physical Therapy Gait dysfunction - to improve, our physical therapists will perform initial evaluation of pt's statu s upon admission and devise an individualized program for Gait Training, and Wheel Chair mobility Inability to transfer - to improve, our physical therapists will perform initial evaluation of pt's status upon admission and devise an individualized program for Bed mobility Need in caregiver upon discharge - to improve, our physical therapists will perform initial evaluati on of pt's status upon admission and devise an individualized program for Caregiver Training New precaution - to improve, our physical therapists will perform initial evaluation of pt's status upon admission and devise an individualized program for Patient precaution education Edema - to improve, our physical therapists will perform initial evaluation of pt's status upon admi ssion and devise an individualized program for Elevation Training, and Lymphedema Therapy Poor balance - to improve, our physical therapists will perform initial evaluation of pt's status up on admission and devise an individualized program for Balance Training Poor endurance - to improve, our physical therapists will perform initial evaluation of pt's status upon admission and devise an individualized program for Endurance Training Weakness - to improve, our physical therapists will perform initial evaluation of pt's status upon a dmission and devise an individualized program for Aquatic Therapy, Neuromuscular Reeducation, and Str engthening Achieving independence - to improve, our physical therapists will perform initial evaluation of pt's status upon admission and devise an individualized program for Community Reintegration Activities - Occupational Therapy Need for healthcare facility administrator - to improve, our occupation therapists will perform initial evaluation of pt's status upon admission and devise an individualized program for Caregiver Training Weakness - to improve, our occupation therapists will perform initial evaluation of pt's status upon admission and devise an individualized program for Aquatic Therapy, Balance, Endurance, UE ROM, and UE strengthening - N/A Continue see attached - Diet Type Continue Regular - Diet - Liquid Texture Continue Regular - Tube Feed Continue N/A - Other See attached MAR (Medication Administration Record) - Diet - Solid Texture Continue Regular - Shower allowing shower FUNCTIONAL STATUS: UPDATED AT WEEKLY TEAM CONFERENCE - Bladder Same accident frequency: 0-UNK - No information - Bowel Same accident frequency: 0-UNK - No information - Walking Same score based on distance walked: 0(N/A) - Wheelchair Same score based on distance traveled: 0(N/A) FUNCTIONAL STATUS: - Self-Care A. Eating Ind B. Grooming Alena C. Bathing [place] D. Dressing - Upper [place] E. Dressing - Lower modA F. Toileting [place] - Sphincter Control G. Bladder control sup H. Bowel control sup - Transfers Control I. Bed/Chair/Wheelchair [place] J. Toilet [place] K. Tub/Shower sup - Locomotion L. Walk/Wheelchair (B) sup M. Stairs ADNO - Communication N. Comprehension (B) Alena O. Expression (B) Alena - Social Cognition P. Social Interaction Ind Q. Problem Solving Ind R. Memory Ind - Endurance Fair - Balance Fair - Safety Awareness Good QI SCORES: - Self-Care A. Eating 04-Supervision or touching assistance B. Oral hygiene 04-Supervision or touching assistance C. Toileting hygiene 04-Supervision or touching assistance E. Shower/bathe self 04-Supervision or touching assistance F. Upper body dressing 04-Supervision or touching assistance G. Lower body dressing 04-Supervision or touching assistance H. Putting on/taking off footwear 88-Not attempted due to medical condition or safety concerns - Mobility A. Roll left and right 05-Setup or clean-up assistance B. Sit to lying 04-Supervision or touching assistance C. Lying to sitting on side of bed 04-Supervision or touching assistance D. Sit to stand 04-Supervision or touching assistance E. Chair/[id number] transfer 03-Partial/moderate assistance F. Toilet transfer 03-Partial/moderate assistance G. Car transfer 88-Not attempted due to medical condition or safety concerns I. Walk 10 feet 02-Substantial/maximal assistance J. Walk 50 feet with two turns 88-Not attempted due to medical condition or safety concerns K. Walk 150 feet 88-Not attempted due to medical condition or safety concerns L. Walking 10 feet on uneven surfaces 88-Not attempted due to medical condition or safety concerns M. 1 step (curb) 88-Not attempted due to medical condition or safety concerns N. 4 steps 88-Not attempted due to medical condition or safety concerns O. 12 steps 88-Not attempted due to medical condition or safety concerns P. Picking up object 88-Not attempted due to medical condition or safety concerns R. Wheel 50 feet with two turns 88-Not attempted due to medical condition or safety concerns S. Wheel 150 feet 88-Not attempted due to medical condition or safety concerns - Bladder and Bowel Bladder continence Bowel continence - Endurance Fair - Balance Fair - Safety Awareness Fair CURRENT [facility]. 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
[2020-05-30] MEDS: MELATONIN 3 MG TABLET PO PRN (19:55)
[2020-05-30] MEDS: TRAZODONE 50 MG TABLET PO PRN (19:55)
[2020-05-30] MEDS: ATORVASTATIN 80 MG TAB PO SCH (19:56)
[2020-05-30] MEDS: predniSONE 10 MG TAB PO SCH (19:58)
[2020-05-31] MEDS: ALPRAZOLAM 0.25 MG TABLET PO PRN ×2 (02:27→12:56)
[2020-05-31] MEDS: METOPROLOL XL 25 MG TAB PO SCH ×2 (05:05→16:17)
[2020-05-31 07:58] VITALS: TEMP 97.6
[2020-05-31] MEDS: CLOBETASOL 0.05 % CREAM 15GM TOP SCH (08:00)
[2020-05-31] MEDS: CLOPIDOGREL 75 MG TABLET PO SCH (08:15)
[2020-05-31] MEDS: predniSONE 10 MG TAB PO SCH (08:15)
[2020-05-31] MEDS: APIXABAN 2.5 MG TABLET PO SCH (08:15)
[2020-05-31] MEDS: BUPROPRION HCL S.R. 150MG TAB PO SCH (08:15)
[2020-05-31] MEDS: CRANBERRY FRUIT EXTRACT 200 MG CAP PO SCH (08:16)
[2020-05-31] MEDS: TORSEMIDE 20 MG TAB PO SCH (08:16)
[2020-05-31] MEDS: FOLIC ACID 1 MG TABLET PO SCH (08:17)
[2020-05-31] MEDS: AMIODARONE HCL 200 MG TAB PO SCH (08:17)
[2020-05-31] MEDS: SPIRONOLACTONE 25 MG TABLET PO SCH (08:17)
[2020-05-31] MEDS: AYR NASAL SALINE DROPS NAS PRN (08:18)
[2020-05-31] MEDS: ASPIRIN 81 MG CHEWABLE TABLET PO SCH (08:18)
[2020-05-31 08:45] VITALS: O2SAT 92
--- NOTE | 2020-05-31 09:47 | P.RH.PN ---
Estimated Length of Stay: 13 Expected Discharge Date: 05/31/20 Discharge Disposition Plan: Home Family Support: Yes [facility] Goal: Mobility, Transfers, Self Care Vital Signs: Last Vital Signs Temp 97.6 F 05/31/20 07:57 Pulse 68 05/31/20 08:17 Resp 16 05/31/20 07:57 BP 138/84 05/31/20 08:17 Pulse Ox 96 05/31/20 07:57 Laboratory: Laboratory Last Values WBC 11.7 K/uL (4.3-10.9) H 05/30/20 05:51 RBC 3.54 M/uL (4.33-5.43) L 05/30/20 05:51 Hgb 11.6 g/dL (13.6-17.9) L 05/30/20 05:51 Hct 33.8 % (39.6-49.0) L 05/30/20 05:51 MCV 95.3 fL (80-100) 05/30/20 05:51 MCH 32.7 pg (27.0-35.0) 05/30/20 05:51 MCHC 34.3 g/dL (32.0-36.0) 05/30/20 05:51 RDW 15.8 % (12.1-15.2) H 05/30/20 05:51 Plt Count 355 K/uL (152-406) D 05/30/20 05:51 MPV 8.0 fL (7.6-11.3) 05/30/20 05:51 Neutrophils % 91.5 % (41.7-73.7) H 05/30/20 05:51 Lymphocytes % 3.4 % (15.3-44.8) L 05/30/20 05:51 Monocytes % 4.1 % (3.3-12.3) 05/30/20 05:51 Eosinophils % 0.5 % (0-4.4) 05/30/20 05:51 Basophils % 0.5 % (0-1.3) 05/30/20 05:51 Absolute Neutrophils 10.7 K/uL (1.8-8.0) H 05/30/20 05:51 Segmented Neutrophils 82 % (40-80) H 05/26/20 05:46 Band Neutrophils 4 % (0-1) H 05/26/20 05:46 Absolute Lymphocytes 0.4 K/uL (0.7-4.9) L 05/30/20 05:51 Lymphocytes 2 % (15-42) L 05/26/20 05:46 Monocytes 4 % (0-10) 05/26/20 05:46 Absolute Monocytes 0.5 K/uL (0.1-1.3) 05/30/20 05:51 Eosinophils 6 % (0-3) H 05/26/20 05:46 Absolute Eosinophils 0.1 K/uL (0-0.5) 05/30/20 05:51 Basophils 2 % (0-1) H 05/26/20 05:46 Absolute Basophils 0.1 K/uL (0-0.5) 05/30/20 05:51 Platelet Estimate Incr 05/26/20 05:46 Giant Platelets Noted 05/26/20 05:46 Morphology Comment Not seen (NOT SEEN) 05/26/20 05:46 pH 7.45 (7.35-7.45) 05/29/20 11:00 pCO2 36.6 mmHG (35-45) 05/29/20 11:00 pO2 54.0 mmHG (75-100) L 05/29/20 11:00 HCO3 25.0 mmol/L (22-28) 05/29/20 11:00 Base Excess 1.4 mmol/L 05/29/20 11:00 Oxyhemoglobin 87.1 % (94-97) L 05/29/20 11:00 ABG O2 Sat (Measured) 89.7 % (92-98.5) L 05/29/20 11:00 ABG Carboxyhemoglobin 1.9 % (0-1.5) H 05/29/20 11:00 ABG Methemoglobin 1.0 % (0-1.5) 05/29/20 11:00 Other Total Hgb 11.2 g/dl (12-18) L 05/29/20 11:00 Inspired O2 21.0 % 05/29/20 11:00 Sodium 140 mmol/L (136-145) 05/30/20 05:51 Potassium 4.5 mmol/L (3.5-5.1) 05/30/20 05:51 Chloride 107 mmol/L (98-107) 05/30/20 05:51 Carbon Dioxide 27 mmol/L (21-32) 05/30/20 05:51 BUN 30 mg/dL (7-18) H 05/30/20 05:51 Creatinine 1.20 mg/dL (0.55-1.3) 05/30/20 05:51 Estimated GFR 60 mL/min (=/>90) L 05/30/20 05:51 Glucose 133 mg/dL (74-106) H 05/30/20 05:51 Calcium 8.5 mg/dL (8.5-10.1) 05/30/20 05:51 Magnesium 2.5 mg/dL (1.8-2.4) H 05/30/20 05:51 NT-Pro-B Natriuret Pep 9510 pg/mL (<125) H 05/29/20 09:01 Albumin 2.9 g/dL (3.4-5.0) L 05/30/20 05:51 Prealbumin 16.6 mg/dL (20-40) L 05/30/20 05:51 Urine Color Yellow 05/19/20 20:00 Urine Appearance Cloudy 05/19/20 20:00 Urine pH 5.5 (5.0-7.0) 05/19/20 20:00 Ur Specific Clements 1.020 (1.005-1.030) 05/19/20 20:00 Glucose (UA)(Auto) Negative (NEG) 05/19/20 20:00 Urine Ketones Negative (NEG) 05/19/20 20:00 Urine Blood Negative (NEG) 05/19/20 20:00 Urine Nitrite Negative (NEG) 05/19/20 20:00 Urine Bilirubin Negative (NEG) 05/19/20 20:00 Urine Urobilinogen 1.0 mg/dL (0.2-1.0) 05/19/20 20:00 Ur Leukocyte Esterase 2+ (NEG) H 05/19/20 20:00 Urine RBC <5 /HPF (NONE SEEN) 05/19/20 20:00 Urine WBC 20-50 /HPF (<5) H 05/19/20 20:00 Ur Squamous Epith Cells PULVERIZER 05/19/20 20:00 Ur Urothelial Cells <5 /HPF (NONE SEEN) 05/19/20 20:00 Urine Bacteria >50 /HPF (NONE SEEN) H 05/19/20 20:00 Urine Culture Reflexed Not needed 05/19/20 20:00 Urine Total Protein Negative (NEG) 05/19/20 20:00 Weight: 255 lb 8 oz Wound Present: No Closed Surgical Incision Present: Yes Negative Pressure Wound Therapy Present: No Physician Update: His labs were reviewed and are stable. His ambulatory O2 dropped to 82% His home O2 is approved. He has [facility] for cardiac rehab. He will be discharged home today. Medical Issues: HX: COPD, CAD, SMOKER, ECZEMA, [place], CARDIAC CATH. Pain Issues: TAKING TYLENOL FOR PAIN. Functional Improvement: Patient continues to present w/ "breathing problems". Patient sporadically de-sats during physical exercise. Patient is Independent w/ transfers, however continues to be SBA w/ gait tx. 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 Please see the Rehabilitation Signature page for all necessary signatures.
[2020-05-31] MEDS ORDERED: PNEUMOCOCCAL VACCINE 0.5 ML IMVAC ONE (11:00)
[2020-05-31 16:18] VITALS: BP 140/81
== END 2020-05-31 17:00 | disposition home health service (06) | DRG 282 ==
LOC: 5TH 05-19 18:10
PROVIDERS: ADMIT Psychiatry & Neurology Neurology with Special Qualifications in Child Neurology; ATTEND Psychiatry & Neurology Neurology with Special Qualifications in Child Neurology
PROC: 0HBRXZZ Excision of Toe Nail, External Approach (ICD-10-PCS; principal; 2020-05-22)
DX: I21.4 Non-ST elevation (NSTEMI) myocardial infarction (principal); J44.9 Chronic obstructive pulmonary disease, unspecified; F17.200 Nicotine dependence, unspecified, uncomplicated; I25.10 Atherosclerotic heart disease of native coronary artery without angina pectoris; F41.9 Anxiety disorder, unspecified; M75.102 Unspecified rotator cuff tear or rupture of left shoulder, not specified as traumatic; B35.1 Tinea unguium; I70.91 Generalized atherosclerosis; G47.30 Sleep apnea, unspecified; I25.2 Old myocardial infarction; R53.81 Other malaise; R09.02 Hypoxemia; Z79.82 Long term (current) use of aspirin; Z79.02 Long term (current) use of antithrombotics/antiplatelets; Z79.01 Long term (current) use of anticoagulants; Z79.899 Other long term (current) drug therapy; Z20.828 Contact with and (suspected) exposure to other viral communicable diseases; Z23 Encounter for immunization
CPT/HCPCS: 36415; 71045; 71046; 80048; 81001; 82040; 82805; 83735; 83880; 84134; 85025; 87077; 87086; 87088; 87186; 90471; 90732; 94640; 97110; 97116; 97161; 97530; J1940; J7512; J7606; U0002